=== PATIENT | female | born 1945 | race Caucasian/White ===

== ENCOUNTER 2017-05-19 13:07 | Emergency (ER) | payer MEDICARE, BC ==
[2017-05-19 13:15] VITALS: TEMP 98
--- NOTE | 2017-05-19 13:34 | ED ---
Lower Extremity Injury HPI - General Chief Complaint: Extremity Injury, Lower Stated Complaint: lump on leg Time Seen by Provider: 05/19/17 13:20 Source: patient, RN notes reviewed, old records reviewed Mode of arrival: ambulatory Limitations: no limitations - History of Present Illness Initial Comments: This is 71-year-old female presenting to the emergency Department chief complaint of right lower leg lump that she noticed today while getting out of the shower. She reports that last week she had some swelling over her right foot. Patient reports the swelling and now has subsided. She denies any injury or trauma to the area did cause this lump and swelling. Patient states that she has no numbness or tingling distally to the area. She reports no nausea or vomiting, chest pain or shortness of breath. - Related Data Home Medications Medication Instructions Recorded Confirmed Aspirin EC [Ecotrin Low Dose] 81 mg PO DAILY 05/19/17 05/19/17 Diltiazem HCl [Diltiazem 24Hr ER] 120 mg PO DAILY 05/19/17 05/19/17 Fluticasone/Vilanterol [Breo 1 puff INHALATION RT-DAILY PRN 05/19/17 05/19/17 Ellipta 200-25 Mcg INH] Folic Acid 0.8 mg PO DAILY 05/19/17 05/19/17 Gabapentin [Neurontin] 100 mg PO DAILY 05/19/17 05/19/17 Isosorbide Mononitrate ER [Imdur] 30 mg PO DAILY 05/19/17 05/19/17 L.acidoph,Paracasei, B.lactis 1 cap PO W/SUPPER 05/19/17 05/19/17 [Probiotic] Magnesium Oxide [Mag-Ox] 400 mg PO DAILY 05/19/17 05/19/17 Metoprolol Succinate (ER) [Toprol 25 mg PO DAILY 05/19/17 05/19/17 Xl] Omeprazole 20 mg PO DAILY 05/19/17 05/19/17 Pravastatin Sodium [Pravachol] 40 mg PO DAILY 05/19/17 05/19/17 Venlafaxine HCl ER [Effexor Xr] 75 mg PO DAILY 05/19/17 05/19/17 diphenhydrAMINE [Benadryl] 25 mg PO DAILY PRN 05/19/17 05/19/17 metFORMIN HCL ER [Glucophage Xr] 500 mg PO PC-SUPPER 05/19/17 05/19/17 methylPREDNISolone [Medrol] 4 mg PO DAILY 05/19/17 05/19/17 Allergies Allergy/AdvReac Type Severity Reaction Status Date / Time atorvastatin [From Lipitor] AdvReac Rapid Verified 05/19/17 14:37 Heart Rate/Increased BP Review of Systems ROS Statement: Those systems with pertinent positive or pertinent negative responses have been documented in the HPI. ROS Other: All systems not noted in ROS Statement are negative. Past Medical History Past Medical History: Diabetes Mellitus, Hyperlipidemia, Hypertension History of Any Multi-Drug Resistant Organisms: None Reported Past Surgical History: Appendectomy, Breast Surgery, Cholecystectomy, Hysterectomy, Orthopedic Surgery Past Psychological History: No Psychological Hx Reported Smoking Status: Never smoker Past Alcohol Use History: None Reported Past Drug Use History: None Reported General Exam - General Exam Comments Initial Comments: Well-appearing 71-year-old female. No acute distress. Limitations: no limitations General appearance: alert, in no apparent distress Head exam: Present: atraumatic, normocephalic, normal inspection Eye exam: Present: normal appearance, PERRL, EOMI. Absent: scleral icterus, conjunctival injection, periorbital swelling ENT exam: Present: normal exam, mucous membranes moist Neck exam: Present: normal inspection. Absent: tenderness, meningismus, lymphadenopathy Respiratory exam: Present: normal lung sounds bilaterally. Absent: respiratory distress, wheezes, rales, rhonchi, stridor Cardiovascular Exam: Present: regular rate, normal rhythm, normal heart sounds. Absent: systolic murmur, diastolic murmur, rubs, gallop, clicks GI/Abdominal exam: Present: soft, normal bowel sounds. Absent: distended, tenderness, guarding, rebound, rigid Extremities exam: Present: normal inspection, full ROM, normal capillary refill. Absent: tenderness, pedal edema, joint swelling, calf tenderness Right Knee exam: Present: normal inspection, full ROM Lower Leg exam: Present: tenderness, swelling (Patient has an area of tenderness and swelling over the distal right anterior lower leg. Appears to be similar to hematoma.). Absent: normal inspection Ankle exam: Present: normal inspection, full ROM Foot/Toe exam: Present: normal inspection, full ROM Neurovascular tendon exam: Present: no vascular compromise Gait: observed and normal Back exam: Present: normal inspection, full ROM Neurological exam: Present: alert, oriented X3, CN II-XII intact Psychiatric exam: Present: normal affect, normal mood Skin exam: Present: warm, dry, intact, normal color. Absent: rash Course Vital Signs 05/19/17 13:11 Temperature 98 F Pulse Rate 96 Respiratory 20 Rate Blood Pressure 196/81 O2 Sat by Pulse 96 Oximetry Medical Decision Making - Medical Decision Making 69-year-old [employer] chief complaint of right lower leg swelling and appears to be hematoma. Patient's x-rays reviewed and negative for any acute process. Ultrasound also shows no evidence of DVT. There does appear to be a 1.9 x 2 cm area consistent with a hematoma. There is no vasculature noted. Patient also is noted to have high blood pressure upon arriving to the emergency department, 196/98. She reports she did take her blood pressure medicine, blood pressure was taken and was 167/78. Discussed that this is a that her number, I do want her to follow-up with her primary care provider regards to the elevated blood pressures. Discussed that her lesion on her leg is very hematoma, and will eventually go down. Discussed putting ice over top of it. Patient agrees to treatment plan will comply. Return parameters were discussed. - Radiology Data Radiology results: report reviewed Right leg ultrasound is negative for DVT patient's very concerning the right calf on his height oh: Measuring 2.6 x 0.8 x 0.1 0.9 cm. No vascularity. It appears to be hematoma. X-ray was reviewed.No suspicious soft tissue nominally evident. Postsurgical changes within the right knee. Disposition Clinical Impression: Hypertension, Traumatic hematoma of right lower leg Disposition: HOME SELF-CARE Condition: Good Instructions: Hematoma (ED) Additional Instructions: Advised to put ice over the area of swelling. Monitor for any redness or significant swelling over the leg. Return to the emergency department if any alarming signs or symptoms occur. Follow-up with your primary care provider regards to blood pressure. Referrals: Lindsay Crowley MD [Primary Care Provider] - 1-2 days Time of Disposition: 14:45
--- NOTE | 2017-05-19 14:05 | XR ---
EXAMINATION TYPE: XR tibia fibula RT DATE OF EXAM: 05/19/2017 COMPARISON: NONE HISTORY: Pain lump medial side likely TECHNIQUE: 2 view right tibia and fibula. 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 No acute fractures are evident. Soft tissues appear norm al. No radiopaque foreign bodies evident. Achilles tendon calcaneal heel spur is present. IMPRESSION: 1. No suspicious soft tissue anomaly evident. 2. Postsurgical changes right knee
--- NOTE | 2017-05-19 14:34 | US ---
EXAMINATION TYPE: US venous doppler duplex LE RT DATE OF EXAM: 05/19/2017 1:28 PM COMPARISON: NONE CLINICAL HISTORY: Pain. SIDE PERFORMED: right TECHNIQUE: The lower extremity deep venous system is examined utilizing real time linear array sonog leonel with graded compression, doppler sonography and color-flow sonography. VESSELS IMAGED: External Iliac Vein (EIV) Common Femoral Vein Deep Femoral Vein Greater Saphenous Vein * Femoral Vein Popliteal Vein Small Saphenous Vein * Proximal Calf Veins (* superficial vessels) Right Leg: Negative for DVT At patients area of concern (right calf lump) is a hypoechoic area measuring 2.6 x 0.8 x 1.9cm. There is no vascularity. IMPRESSION: No evidence of deep venous thrombosis. 2. Hypoechoic collection at the lump could be a hematoma. Follow up can be performed as clinically in dicated
[2017-05-19 14:47] VITALS: BP 167/79; PULSE 86; RESP 15
== END 2017-05-19 14:42 | disposition home or self-care (01) ==
LOC: EC 13:07
DX: S80.11XA Contusion of right lower leg, initial encounter (principal); I10 Essential (primary) hypertension; E11.9 Type 2 diabetes mellitus without complications; E78.5 Hyperlipidemia, unspecified; Z79.82 Long term (current) use of aspirin; Z79.84 Long term (current) use of oral hypoglycemic drugs; Z79.899 Other long term (current) drug therapy; Z88.8 Allergy status to other drugs, medicaments and biological substances; X58.XXXA Exposure to other specified factors, initial encounter
CPT/HCPCS: 99284

== ENCOUNTER 2018-08-11 07:29 | Emergency (ER) | payer MEDICARE, BC ==
[2018-08-11 07:40] VITALS: RESP 18
[2018-08-11] MEDS ORDERED: MORPHINE SULFATE 4 MG/ML SYRINGE IV STA (08:09)
[2018-08-11] MEDS ORDERED: SODIUM CHLORIDE 0.9% 1,000 ML IV STA (08:09)
--- NOTE | 2018-08-11 08:33 | ED ---
Weakness HPI - General Chief complaint: Back Pain/Injury Stated complaint: Pain all over Time Seen by Provider: 08/11/18 07:32 Source: patient, RN notes reviewed, old records reviewed Mode of arrival: EMS Limitations: no limitations - History of Present Illness Initial comments: This is a 73-year-old female the ER for evaluation pain, patient complains of pain over entire body. She states that she does not feel well, she states ever since she had a recent fall about 5 days ago which she presented to the emergency department for she is having back pain. She is concerned that maybe her kidneys. She is not eating she's not drinking she is not having bowel movements. No fevers cough or congestion. Patient does have a mild issue with chronic pain and chronic back pain. Patient was unable to get in to see primary care doctor since fall. Denies any fever or chest pain or shortness of breath MD Complaint: generalized weakness, lack of energy, difficulty walking -: days(s) (5) Location: generalized Severity: moderate Severity scale (1-10): 5 Quality: aching Consistency: constant Improves with: none Worsens with: movement Context: trauma/injury Associated Symptoms: denies other symptoms - Related Data Home Medications Medication Instructions Recorded Confirmed Fluticasone/Vilanterol [Breo 1 puff INHALATION RT-DAILY PRN 05/19/17 08/11/18 Ellipta 200-25 Mcg INH] Metoprolol Succinate (ER) [Toprol 25 mg PO DAILY 05/19/17 08/11/18 Xl] Omeprazole 20 mg PO DAILY 05/19/17 08/11/18 Aspirin [Children's Aspirin] 81 mg PO DAILY 08/11/18 08/11/18 Gabapentin [Neurontin] 100 mg PO DAILY 08/11/18 08/11/18 predniSONE 4 mg PO DAILY 08/11/18 08/11/18 Allergies Allergy/AdvReac Type Severity Reaction Status Date / Time atorvastatin [From Lipitor] AdvReac Rapid Verified 08/11/18 07:40 Heart Rate/Increased BP Review of Systems ROS Statement: Those systems with pertinent positive or pertinent negative responses have been documented in the HPI. ROS Other: All systems not noted in ROS Statement are negative. Past Medical History Past Medical History: Diabetes Mellitus, Hyperlipidemia, Hypertension History of Any Multi-Drug Resistant Organisms: None Reported Past Surgical History: Appendectomy, Breast Surgery, Cholecystectomy, Hysterectomy, Orthopedic Surgery Past Psychological History: No Psychological Hx Reported Smoking Status: Former smoker Past Alcohol Use History: None Reported Past Drug Use History: None Reported General Exam Limitations: no limitations General appearance: alert, in no apparent distress Head exam: Present: atraumatic, normocephalic, normal inspection Eye exam: Present: normal appearance, PERRL, EOMI. Absent: scleral icterus, conjunctival injection, periorbital swelling ENT exam: Present: normal exam, mucous membranes moist Neck exam: Present: normal inspection. Absent: tenderness, meningismus, lymphadenopathy Respiratory exam: Present: normal lung sounds bilaterally. Absent: respiratory distress, wheezes, rales, rhonchi, stridor Cardiovascular Exam: Present: regular rate, normal rhythm, normal heart sounds. Absent: systolic murmur, diastolic murmur, rubs, gallop, clicks GI/Abdominal exam: Present: soft, normal bowel sounds. Absent: distended, tenderness, guarding, rebound, rigid Extremities exam: Present: normal inspection, full ROM, normal capillary refill. Absent: tenderness, pedal edema, joint swelling, calf tenderness Back exam: Present: normal inspection Neurological exam: Present: alert, oriented X3, CN II-XII intact Psychiatric exam: Present: normal affect, normal mood Skin exam: Present: warm, dry, intact, normal color. Absent: rash Course Vital Signs 08/11/18 08/11/18 08/11/18 07:35 08:00 08:30 Temperature 98.8 F Pulse Rate 89 85 88 Respiratory 18 Rate Blood Pressure 174/96 174/96 162/81 O2 Sat by Pulse 95 93 L 90 L Oximetry 08/11/18 08/11/18 09:00 09:30 Temperature Pulse Rate 87 89 Respiratory Rate Blood Pressure 159/86 154/75 O2 Sat by Pulse 90 L 99 Oximetry - Reevaluation(s) Reevaluation #1: 08/11/18 09:39 Medical record is reviewed including prior ER visit and findings Reevaluation #2: 08/11/18 10:53 Patient has adequate pain control currently Medical Decision Making - Medical Decision Making 73-year-old female to the ER for evaluation of pain back pain abdominal pain patient really constipated. Patient's CAT scan here in the ER with lab values which were all normal. Patient will give MiraLAX to help with bowel movement and discharged home - Lab Data Result diagrams: 08/11/18 08:48 08/11/18 08:48 Lab Results 08/11/18 08/11/18 08/11/18 Range/Units 08:48 08:48 08:48 WBC 11.3 H (3.8-10.6) k/uL RBC 3.98 (3.80-5.40) m/uL Hgb 12.1 (11.4-16.0) gm/dL Hct 35.8 (34.0-46.0) % MCV 90.0 (80.0-100.0) fL MCH 30.4 (25.0-35.0) pg MCHC 33.8 (31.0-37.0) g/dL RDW 13.4 (11.5-15.5) % Plt Count 223 (150-450) k/uL Neutrophils % 75 % Lymphocytes % 15 % Monocytes % 5 % Eosinophils % 2 % Basophils % 0 % Neutrophils # 8.5 H (1.3-7.7) k/uL Lymphocytes # 1.7 (1.0-4.8) k/uL Monocytes # 0.6 (0-1.0) k/uL Eosinophils # 0.3 (0-0.7) k/uL Basophils # 0.0 (0-0.2) k/uL PT (9.0-12.0) sec INR (<1.2) APTT (22.0-30.0) sec Sodium 140 (137-145) mmol/L Potassium 3.5 (3.5-5.1) mmol/L Chloride 109 H (98-107) mmol/L Carbon Dioxide 25 (22-30) mmol/L Anion Gap 6 mmol/L BUN 18 H (7-17) mg/dL Creatinine 0.74 (0.52-1.04) mg/dL Est GFR (CKD-EPI)AfAm >90 (>60 ml/min/1.73 sqM) Est GFR (CKD-EPI)NonAf 81 (>60 ml/min/1.73 sqM) Glucose 139 H (74-99) mg/dL Plasma Lactic Acid Abhijeet (0.7-2.0) mmol/L Calcium 8.3 L (8.4-10.2) mg/dL Total Bilirubin 0.6 (0.2-1.3) mg/dL AST 32 (14-36) U/L ALT 32 (9-52) U/L Alkaline Phosphatase 72 (38-126) U/L Total Creatine Kinase 25 L (30-135) U/L CK-MB (CK-2) 0.5 (0.0-2.4) ng/mL CK-MB (CK-2) Rel Index 2.0 Troponin I <0.012 (0.000-0.034) ng/mL Total Protein 6.2 L (6.3-8.2) g/dL Albumin 3.1 L (3.5-5.0) g/dL Amylase 58 (30-110) U/L Lipase 155 (23-300) U/L Urine Color Urine Appearance (Clear) Urine pH (5.0-8.0) Ur Specific [place] (1.001-1.035) Urine Protein (Negative) Urine Glucose (UA) (Negative) Urine Ketones (Negative) Urine Blood (Negative) Urine Nitrite (Negative) Urine Bilirubin (Negative) Urine Urobilinogen (<2.0) mg/dL Ur Leukocyte Esterase (Negative) Urine RBC (0-5) /hpf Urine WBC (0-5) /hpf Ur Squamous Epith Cells (0-4) /hpf Ur Transition Epith Cell (0-1) /hpf Urine Bacteria (None) /hpf 08/11/18 08/11/18 08/11/18 Range/Units 08:48 08:48 10:10 WBC (3.8-10.6) k/uL RBC (3.80-5.40) m/uL Hgb (11.4-16.0) gm/dL Hct (34.0-46.0) % MCV (80.0-100.0) fL MCH (25.0-35.0) pg MCHC (31.0-37.0) g/dL RDW (11.5-15.5) % Plt Count (150-450) k/uL Neutrophils % % Lymphocytes % % Monocytes % % Eosinophils % % Basophils % % Neutrophils # (1.3-7.7) k/uL Lymphocytes # (1.0-4.8) k/uL Monocytes # (0-1.0) k/uL Eosinophils # (0-0.7) k/uL Basophils # (0-0.2) k/uL PT 9.9 (9.0-12.0) sec INR 1.0 (<1.2) APTT 23.0 (22.0-30.0) sec Sodium (137-145) mmol/L Potassium (3.5-5.1) mmol/L Chloride (98-107) mmol/L Carbon Dioxide (22-30) mmol/L Anion Gap mmol/L BUN (7-17) mg/dL Creatinine (0.52-1.04) mg/dL Est GFR (CKD-EPI)AfAm (>60 ml/min/1.73 sqM) Est GFR (CKD-EPI)NonAf (>60 ml/min/1.73 sqM) Glucose (74-99) mg/dL Plasma Lactic Acid Abhijeet 1.0 (0.7-2.0) mmol/L Calcium (8.4-10.2) mg/dL Total Bilirubin (0.2-1.3) mg/dL AST (14-36) U/L ALT (9-52) U/L Alkaline Phosphatase (38-126) U/L Total Creatine Kinase (30-135) U/L CK-MB (CK-2) (0.0-2.4) ng/mL CK-MB (CK-2) Rel Index Troponin I (0.000-0.034) ng/mL Total Protein (6.3-8.2) g/dL Albumin (3.5-5.0) g/dL Amylase (30-110) U/L Lipase (23-300) U/L Urine Color Light Yellow Urine Appearance Cloudy H (Clear) Urine pH 6.0 (5.0-8.0) Ur Specific [place] 1.023 (1.001-1.035) Urine Protein Negative (Negative) Urine Glucose (UA) Negative (Negative) Urine Ketones Negative (Negative) Urine Blood Negative (Negative) Urine Nitrite Negative (Negative) Urine Bilirubin Negative (Negative) Urine Urobilinogen <2.0 (<2.0) mg/dL Ur Leukocyte Esterase Moderate H (Negative) Urine RBC 1 (0-5) /hpf Urine WBC 22 H (0-5) /hpf Ur Squamous Epith Cells 11 H (0-4) /hpf Ur Transition Epith Cell <1 (0-1) /hpf Urine Bacteria Rare H (None) /hpf - Radiology Data Radiology results: report reviewed (CT head and pelvis negative for acute disease), image reviewed Disposition Clinical Impression: Mechanical back pain, Strain of lumbar region, Thoracic back pain Disposition: HOME SELF-CARE Condition: Good Instructions: Musculoskeletal Pain (ED) Is patient prescribed a controlled substance at d/c from ED?: No Referrals: Lindsay Crowley MD [Primary Care Provider] - 1-2 days
[2018-08-11 09:17] LABS: ALT 32 U/L (9-52); AST 32 U/L (14-36); Albumin 3.1 g/dL (3.5-5.0); Alkaline Phosphatase 72 U/L (38-126); Amylase 58 U/L (30-110); Anion Gap 6 mmol/L; Basophils % (A) 0 %; Blood Urea Nitrogen 18 mg/dL (7-17); Calcium 8.3 mg/dL (8.4-10.2); Carbon Dioxide 25 mmol/L (22-30); Chloride 109 mmol/L (98-107); Eosinophils # (A) 0.3 k/uL (0-0.7); Eosinophils % (A) 2 %; Glucose 139 mg/dL (74-99); HCT 35.8 % (34.0-46.0); HGB 12.1 gm/dL (11.4-16.0); Lipase 155 U/L (23-300); Lymphocytes # (A) 1.7 k/uL (1.0-4.8); Lymphocytes % (A) 15 %; MCH 30.4 pg (25.0-35.0); MCHC 33.8 g/dL (31.0-37.0); Monocytes # (A) 0.6 k/uL (0-1.0); Monocytes % (A) 5 %; Neutrophils # (A) 8.5 k/uL (1.3-7.7); Neutrophils % (A) 75 %; Platelet Count 223 k/uL (150-450); Potassium 3.5 mmol/L (3.5-5.1); RBC 3.98 m/uL (3.80-5.40); RDW 13.4 % (11.5-15.5); Sodium 140 mmol/L (137-145); Total Bilirubin 0.6 mg/dL (0.2-1.3); Total Protein 6.2 g/dL (6.3-8.2); WBC 11.3 k/uL (3.8-10.6)
[2018-08-11 09:21] LABS: Prothrombin Time 9.9 sec (9.0-12.0)
[2018-08-11 09:38] LABS: Creatine Kinase 25 U/L (30-135)
[2018-08-11 09:51] LABS: Creatine Kinase MB 0.5 ng/mL (0.0-2.4); Troponin I <0.012 ng/mL (0.000-0.034)
--- NOTE | 2018-08-11 10:14 | CT ---
EXAMINATION TYPE: CT abdomen pelvis w con DATE OF EXAM: 08/11/2018 REFERENCE: NONE HISTORY: abdominal pain HISTORY: back pain, constipation CT DLP: 1563.2 mGy Automated exposure control for dose reduction was used. TECHNIQUE: Helical acquisition through the abdomen and pelvis was obtained following the oral ingesti on of without Oral Contrast and following intravenous administration of 100 mL of Isovue 300. The jules a was reformatted in axial, coronal and sagittal projections. FINDINGS: There are tiny, bilateral pleural effusions. There is atelectatic change and groundglass o pacity at the lung bases. There is no pericardial fluid. The heart is enlarged. Within the abdomen, the gallbladder has been removed. The liver is upper limits of normal in size. Th ere is low-attenuation of the liver and is likely fatty infiltrated. There is mild central biliary dilatation. This common bile duct measures 11 mm in diameter. The splee n is unremarkable. Both adrenal glands are normal. There is a 1.9 cm, simple appearing cyst involving the upper pole of the left kidney. Kidneys are oth erwise unremarkable. The pancreas is unremarkable. There is mild atheromatous calcification of the visualized arterial tree. There is no significant ret roperitoneal, iliac or inguinal adenopathy. The bladder is unremarkable. The uterus and ovaries are not visualized. There are scattered diverticula in the sigmoid region without radiographic evidence of diverticulitis . The appendix is not visualized with certainty. Small bowel caliber is normal. There is no free fluid and no free air. There is degenerative disc disease, facet arthropathy and hypertrophic spondylosis within the spine. IMPRESSION: 1. PROBABLE FATTY INFILTRATION OF THE LIVER. 2. TINY, BILATERAL PLEURAL EFFUSIONS. 3. CARDIOMEGALY. 4. SIMPLE APPEARING LEFT RENAL CYST. 5. MINIMAL, UNCOMPLICATED DIVERTICULOSIS OF THE SIGMOID COLON. 6. DEGENERATIVE CHANGES WITHIN THE SPINE.
[2018-08-11 10:28] LABS: Appearance,Urine Cloudy (Clear); Bacteria,Urine Rare /hpf; Bilirubin,Urine Negative (Negative); Blood,Urine Negative (Negative); Color,Urine Light Yellow; Glucose,Urine (UA) Negative (Negative); Ketones,Urine Negative (Negative); Leukocyte Esterase,Urine Moderate (Negative); Nitrite,Urine Negative (Negative); Protein,Urine Negative (Negative); RBC,Urine 1 /hpf (0-5); Specific Gravity,Urine 1.023 (1.001-1.035); Squamous Epithelial Cell,Urine 11 /hpf (0-4); Transitional Epi Cells,Urine <1 /hpf (0-1); Urobilinogen,Urine <2.0 mg/dL (<2.0); WBC,Urine 22 /hpf (0-5)
[2018-08-11 11:23] VITALS: BP 161/87; PULSE 96; TEMP 99
== END 2018-08-11 11:21 | disposition home or self-care (01) ==
LOC: EC 07:29
DX: S39.012A Strain of muscle, fascia and tendon of lower back, initial encounter (principal); M54.6 Pain in thoracic spine; K59.00 Constipation, unspecified; R10.9 Unspecified abdominal pain; R53.1 Weakness; R26.9 Unspecified abnormalities of gait and mobility; G89.29 Other chronic pain; I10 Essential (primary) hypertension; Z87.891 Personal history of nicotine dependence; Z88.8 Allergy status to other drugs, medicaments and biological substances; Z79.52 Long term (current) use of systemic steroids; Z79.82 Long term (current) use of aspirin; Z79.899 Other long term (current) drug therapy; Z90.49 Acquired absence of other specified parts of digestive tract; W19.XXXA Unspecified fall, initial encounter
CPT/HCPCS: 36415; 80053; 82150; 82550; 82553; 83605; 83690; 84484; 85025; 85610; 85730; 81001; 87086; 74177; 99285; 96374; 96361; J2270; Q9967

== ENCOUNTER 2021-11-18 16:47 | Emergency (ER) | payer MEDICARE, BC ==
[2021-11-18] MEDS ORDERED: METOCLOPRAMIDE 5 MG/ML 2 ML VIAL IVP STA (17:10)
[2021-11-18] MEDS ORDERED: diphenhydrAMINE 50 MG/ML 1 ML VIAL IVP STA (17:10)
[2021-11-18] MEDS ORDERED: MORPHINE SULFATE 2 MG/ML SYRINGE IVP STA (17:10)
[2021-11-18] MEDS ORDERED: SODIUM CHLORIDE 0.9% 1,000 ML IV STA (17:13)
--- NOTE | 2021-11-18 17:31 | ED ---
General Adult HPI - General Chief complaint: Nausea/Vomiting/Diarrhea Stated complaint: NAUSEA AND VOMITING Time Seen by Provider: 11/18/21 16:52 Source: patient Mode of arrival: EMS Limitations: no limitations - History of Present Illness Initial comments: This 76-year-old female presents emergency Department with vomiting and abdominal pain that began at 3 AM this morning. Patient states she was woken from her sleep with nausea and has vomited 12-15 times since. Patient denies any hemoptysis or fever. Patient denies any diarrhea. Patient states she feels dehydrated. Patient states she has had pancreatitis in the past and states that is the only other time she has felt this way. Patient states her abdominal pain is diffuse but worse right above her umbilicus. Patient denies any pain radiating to her back or groin. Patient denies taking any medication to help relieve her abdominal pain. Patient states she does have 3 other family members at home with similar symptoms who are also experiencing nausea, vomiting and abdominal discomfort for the last few days. Patient denies any chest pain, shortness of breath, change in bowel or bladder, change in vision, headache, dizziness, lightheadedness, back pain, bowel or bladder retention/incontinence, one-sided weakness. - Related Data Home Medications Medication Instructions Recorded Confirmed Gabapentin [Neurontin] 200 mg PO BID 08/11/18 11/18/21 Aspirin EC [Ecotrin Low Dose] 81 mg PO DAILY 11/18/21 11/18/21 Clopidogrel [Plavix] 75 mg PO DAILY 11/18/21 11/18/21 Clotrimazole/Betamethasone Dip 1 applic TOPICAL DAILY PRN 11/18/21 11/18/21 [Lotrisone Cream] Evolocumab [Repatha Sureclick] 140 mg SQ Q14D 11/18/21 11/18/21 Isosorbide Mononitrate ER [Imdur] 60 mg PO DAILY 11/18/21 11/18/21 Loratadine [Claritin] 10 mg PO DAILY 11/18/21 11/18/21 Losartan [Cozaar] 50 mg PO DAILY 11/18/21 11/18/21 Metoprolol Succinate (ER) [Toprol 50 mg PO DAILY 11/18/21 11/18/21 Xl] Pantoprazole [Protonix] 40 mg PO DAILY 11/18/21 11/18/21 diphenhydrAMINE HCL [Benadryl] 25 mg PO HS 11/18/21 11/18/21 metFORMIN HCL ER [Glucophage XR] 500 mg PO DAILY 11/18/21 11/18/21 predniSONE 2.5 mg PO DAILY 11/18/21 11/18/21 sitaGLIPtin [Januvia] 100 mg PO DAILY 11/18/21 11/18/21 Previous Rx's Medication Instructions Recorded Metoclopramide [Reglan] 10 mg PO TID #15 tab 11/18/21 Allergies Allergy/AdvReac Type Severity Reaction Status Date / Time sulfamethoxazole Allergy Unknown Verified 11/18/21 18:17 [From Bactrim] trimethoprim [From Bactrim] Allergy Unknown Verified 11/18/21 18:17 atorvastatin [From Lipitor] AdvReac Rapid Verified 11/18/21 18:10 Heart Rate/Increased BP duloxetine [From Cymbalta] AdvReac Cough Verified 11/18/21 18:17 ondansetron [From Zofran] AdvReac agitation Verified 11/18/21 18:17 pravastatin AdvReac Rapid Verified 11/18/21 18:17 Heart Rate [id number]-RuA Reductase AdvReac Rapid Verified 11/18/21 18:17 Inhibitor Heart Rate Review of Systems ROS Statement: Those systems with pertinent positive or pertinent negative responses have been documented in the HPI. ROS Other: All systems not noted in ROS Statement are negative. Past Medical History Past Medical History: Diabetes Mellitus, Hyperlipidemia, Hypertension History of Any Multi-Drug Resistant Organisms: None Reported Past Surgical History: Appendectomy, Breast Surgery, Cholecystectomy, Heart Catheterization With Stent, Hysterectomy, Orthopedic Surgery Additional Past Surgical History / Comment(s): 2 stents Past Psychological History: No Psychological Hx Reported Smoking Status: Former smoker Past Alcohol Use History: None Reported Past Drug Use History: None Reported General Exam Limitations: no limitations General appearance: alert, in no apparent distress Head exam: Present: atraumatic, normocephalic Eye exam: Present: normal appearance, PERRL, EOMI Pupils: Present: normal accommodation ENT exam: Present: mucous membranes moist Neck exam: Present: full ROM. Absent: tenderness, meningismus Respiratory exam: Present: normal lung sounds bilaterally, rales, other (Mild crackles in left lower lobe). Absent: respiratory distress, wheezes, rhonchi, stridor Cardiovascular Exam: Present: regular rate, normal rhythm, normal heart sounds. Absent: systolic murmur, diastolic murmur, rubs, gallop, clicks GI/Abdominal exam: Present: soft, normal bowel sounds. Absent: distended, tenderness, guarding, rebound, rigid Extremities exam: Present: full ROM. Absent: tenderness, joint swelling, calf tenderness Back exam: Present: full ROM. Absent: tenderness, CVA tenderness (R), CVA tenderness (L), paraspinal tenderness, vertebral tenderness Neurological exam: Present: alert, oriented X3, CN II-XII intact Psychiatric exam: Present: normal affect, normal mood Skin exam: Present: warm, dry, intact, normal color. Absent: rash Course Vital Signs 11/18/21 11/18/21 16:57 20:00 Temperature 99.1 F 100.2 F H Pulse Rate 91 88 Respiratory 18 20 Rate Blood Pressure 182/93 178/88 O2 Sat by Pulse 95 95 Oximetry EKG Findings - EKG Comments: EKG Findings:: EKG impression: Normal sinus rhythm. Ventricular rate 90 bpm. MO interval 180. Frustration 82. QT/QTc 380/427. No ST elevation or depressions noted. Medical Decision Making - Medical Decision Making This 76-year-old female comes emergency Department with vomiting, abdominal pain and nausea that began at 3 AM. Urine unremarkable. Labs unremarkable. COVID- 19 negative. Chest x-ray impression with bilateral shoulder joint osteoarthritis. No focal airspace opacity, pneumothorax or effusion. No acute fracture or dislocation. Mild pulmonary vascular congestion. Moderate enlargement of the heart size. CT abdomen and pelvis with out any acute abnormalities. Patient is aware of her gastroesophageal hiatal hernia and states it has been there for years. No findings of acute diverticulitis. No intestinal obstruction. Patient is aware for compression fracture of L4. After getting fluids, pain medication and Reglan/Benadryl, patient states she is feeling improvement. Patient denies any abdominal pain at this time. Patient states she is still a little bit nauseous. Ativan 0.5 was given before discharge for nausea. Patient was able to keep down water. Strict return precautions were discussed with patient. Patient instructed to follow-up with her primary care provider on Sunday morning. Patient verbally agreed to plan. Patient sent home in stable condition. Case discussed with my attending, . - Lab Data Result diagrams: 11/18/21 17:13 11/18/21 17:13 Lab Results 11/18/21 11/18/21 11/18/21 Range/Units 17:13 17:13 17:13 WBC 8.1 (3.8-10.6) k/uL RBC 4.78 (3.80-5.40) m/uL Hgb 14.6 (11.4-16.0) gm/dL Hct 43.4 (34.0-46.0) % MCV 90.8 (80.0-100.0) fL MCH 30.5 (25.0-35.0) pg MCHC 33.6 (31.0-37.0) g/dL RDW 14.0 (11.5-15.5) % Plt Count 187 (150-450) k/uL MPV 7.1 Neutrophils % 89 % Lymphocytes % 5 % Monocytes % 4 % Eosinophils % 1 % Basophils % 0 % Neutrophils # 7.2 (1.3-7.7) k/uL Lymphocytes # 0.4 L (1.0-4.8) k/uL Monocytes # 0.3 (0-1.0) k/uL Eosinophils # 0.0 (0-0.7) k/uL Basophils # 0.0 (0-0.2) k/uL PT 10.2 (9.0-12.0) sec INR 0.9 (<1.2) APTT 20.5 L (22.0-30.0) sec Sodium 138 (137-145) mmol/L Potassium 3.9 (3.5-5.1) mmol/L Chloride 105 (98-107) mmol/L Carbon Dioxide 24 (22-30) mmol/L Anion Gap 9 mmol/L BUN 15 (7-17) mg/dL Creatinine 0.72 (0.52-1.04) mg/dL Est GFR (CKD-EPI)AfAm >90 (>60 ml/min/1.73 sqM) Est GFR (CKD-EPI)NonAf 82 (>60 ml/min/1.73 sqM) Glucose 172 H (74-99) mg/dL Plasma Lactic Acid Abhijeet (0.7-2.0) mmol/L Calcium 8.6 (8.4-10.2) mg/dL Total Bilirubin 0.9 (0.2-1.3) mg/dL AST 33 (14-36) U/L ALT 21 (4-34) U/L Alkaline Phosphatase 85 (38-126) U/L Troponin I (0.000-0.034) ng/mL Total Protein 7.0 (6.3-8.2) g/dL Albumin 3.9 (3.5-5.0) g/dL Lipase 90 (23-300) U/L Urine Color Urine Appearance (Clear) Urine pH (5.0-8.0) Ur Specific Donnelly (1.001-1.035) Urine Protein (Negative) Urine Glucose (UA) (Negative) Urine Ketones (Negative) Urine Blood (Negative) Urine Nitrite (Negative) Urine Bilirubin (Negative) Urine Urobilinogen (<2.0) mg/dL Ur Leukocyte Esterase (Negative) Coronavirus (PCR) (Not Detectd) 11/18/21 11/18/21 11/18/21 Range/Units 17:13 17:13 20:37 WBC (3.8-10.6) k/uL RBC (3.80-5.40) m/uL Hgb (11.4-16.0) gm/dL Hct (34.0-46.0) % MCV (80.0-100.0) fL MCH (25.0-35.0) pg MCHC (31.0-37.0) g/dL RDW (11.5-15.5) % Plt Count (150-450) k/uL MPV Neutrophils % % Lymphocytes % % Monocytes % % Eosinophils % % Basophils % % Neutrophils # (1.3-7.7) k/uL Lymphocytes # (1.0-4.8) k/uL Monocytes # (0-1.0) k/uL Eosinophils # (0-0.7) k/uL Basophils # (0-0.2) k/uL PT (9.0-12.0) sec INR (<1.2) APTT (22.0-30.0) sec Sodium (137-145) mmol/L Potassium (3.5-5.1) mmol/L Chloride (98-107) mmol/L Carbon Dioxide (22-30) mmol/L Anion Gap mmol/L BUN (7-17) mg/dL Creatinine (0.52-1.04) mg/dL Est GFR (CKD-EPI)AfAm (>60 ml/min/1.73 sqM) Est GFR (CKD-EPI)NonAf (>60 ml/min/1.73 sqM) Glucose (74-99) mg/dL Plasma Lactic Acid Abhijeet 1.1 (0.7-2.0) mmol/L Calcium (8.4-10.2) mg/dL Total Bilirubin (0.2-1.3) mg/dL AST (14-36) U/L ALT (4-34) U/L Alkaline Phosphatase (38-126) U/L Troponin I <0.012 (0.000-0.034) ng/mL Total Protein (6.3-8.2) g/dL Albumin (3.5-5.0) g/dL Lipase (23-300) U/L Urine Color Light Yellow Urine Appearance Clear (Clear) Urine pH 6.0 (5.0-8.0) Ur Specific Donnelly >1.050 H (1.001-1.035) Urine Protein Negative (Negative) Urine Glucose (UA) Negative (Negative) Urine Ketones Negative (Negative) Urine Blood Negative (Negative) Urine Nitrite Negative (Negative) Urine Bilirubin Negative (Negative) Urine Urobilinogen <2.0 (<2.0) mg/dL Ur Leukocyte Esterase Negative (Negative) Coronavirus (PCR) (Not Detectd) 11/18/21 Range/Units 20:37 WBC (3.8-10.6) k/uL RBC (3.80-5.40) m/uL Hgb (11.4-16.0) gm/dL Hct (34.0-46.0) % MCV (80.0-100.0) fL MCH (25.0-35.0) pg MCHC (31.0-37.0) g/dL RDW (11.5-15.5) % Plt Count (150-450) k/uL MPV Neutrophils % % Lymphocytes % % Monocytes % % Eosinophils % % Basophils % % Neutrophils # (1.3-7.7) k/uL Lymphocytes # (1.0-4.8) k/uL Monocytes # (0-1.0) k/uL Eosinophils # (0-0.7) k/uL Basophils # (0-0.2) k/uL PT (9.0-12.0) sec INR (<1.2) APTT (22.0-30.0) sec Sodium (137-145) mmol/L Potassium (3.5-5.1) mmol/L Chloride (98-107) mmol/L Carbon Dioxide (22-30) mmol/L Anion Gap mmol/L BUN (7-17) mg/dL Creatinine (0.52-1.04) mg/dL Est GFR (CKD-EPI)AfAm (>60 ml/min/1.73 sqM) Est GFR (CKD-EPI)NonAf (>60 ml/min/1.73 sqM) Glucose (74-99) mg/dL Plasma Lactic Acid Abhijeet (0.7-2.0) mmol/L Calcium (8.4-10.2) mg/dL Total Bilirubin (0.2-1.3) mg/dL AST (14-36) U/L ALT (4-34) U/L Alkaline Phosphatase (38-126) U/L Troponin I (0.000-0.034) ng/mL Total Protein (6.3-8.2) g/dL Albumin (3.5-5.0) g/dL Lipase (23-300) U/L Urine Color Urine Appearance (Clear) Urine pH (5.0-8.0) Ur Specific Donnelly (1.001-1.035) Urine Protein (Negative) Urine Glucose (UA) (Negative) Urine Ketones (Negative) Urine Blood (Negative) Urine Nitrite (Negative) Urine Bilirubin (Negative) Urine Urobilinogen (<2.0) mg/dL Ur Leukocyte Esterase (Negative) Coronavirus (PCR) Not Detected (Not Detectd) Disposition Clinical Impression: Abdominal pain, Nausea and vomiting Disposition: HOME SELF-CARE Instructions (If sedation given, give patient instructions): Acute Nausea and Vomiting (ED), Abdominal Pain (ED) Additional Instructions: Please follow-up with her primary care provider on Sunday morning. Return to the emergency department with any new, worsening, or concerning symptoms. Take Reglan as directed. Stay well hydrated, drinking plenty of water. Take Tylenol for symptomatic relief of pain or fever as directed. Prescriptions: Metoclopramide [Reglan] 10 mg PO TID #15 tab Is patient prescribed a controlled substance at d/c from ED?: No Referrals: Lindsay Crowley MD [Primary Care Provider] - 1-2 days Time of Disposition: 21:36
[2021-11-18 17:36] LABS: Basophils % (A) 0 %; Eosinophils % (A) 1 %; HCT 43.4 % (34.0-46.0); HGB 14.6 gm/dL (11.4-16.0); Lymphocytes # (A) 0.4 k/uL (1.0-4.8); Lymphocytes % (A) 5 %; MCH 30.5 pg (25.0-35.0); MCHC 33.6 g/dL (31.0-37.0); MCV 90.8 fL (80.0-100.0); Mean Platelet Volume 7.1; Monocytes # (A) 0.3 k/uL (0-1.0); Monocytes % (A) 4 %; Neutrophils # (A) 7.2 k/uL (1.3-7.7); Neutrophils % (A) 89 %; Platelet Count 187 k/uL (150-450); RBC 4.78 m/uL (3.80-5.40); WBC 8.1 k/uL (3.8-10.6)
[2021-11-18 17:47] LABS: ALT 21 U/L (4-34); AST 33 U/L (14-36); African American GFR (CKD) >90 (>60 ml/min/1.73 sqM); Albumin 3.9 g/dL (3.5-5.0); Alkaline Phosphatase 85 U/L (38-126); Anion Gap 9 mmol/L; Blood Urea Nitrogen 15 mg/dL (7-17); Calcium 8.6 mg/dL (8.4-10.2); Carbon Dioxide 24 mmol/L (22-30); Chloride 105 mmol/L (98-107); Glucose 172 mg/dL (74-99); Lipase 90 U/L (23-300); Non-African American GFR(CKD) 82 (>60 ml/min/1.73 sqM); Potassium 3.9 mmol/L (3.5-5.1); Sodium 138 mmol/L (137-145); Total Bilirubin 0.9 mg/dL (0.2-1.3)
[2021-11-18 17:58] LABS: INR 0.9 (<1.2); Prothrombin Time 10.2 sec (9.0-12.0)
[2021-11-18 18:01] LABS: Partial Thromboplastin Time 20.5 sec (22.0-30.0)
--- NOTE | 2021-11-18 19:28 | XR ---
EXAMINATION TYPE: XR chest 2V DATE OF EXAM: 11/18/2021 COMPARISON: None HISTORY: 76 years Female. STUDY INDICATION GIVEN: vomiting . TECHNIQUE: Frontal and lateral chest radiographs. IMPRESSION: Moderate enlargement of the heart size. Mild pulmonary vascular congestion, correlate clinically for CHF.Lung base atelectatic changes noted, greater on the right. No focal airspace opacity, pneumothorax or effusion. No acute fracture or dislocation. Bilateral shoulder joint osteoarthrosis.
--- NOTE | 2021-11-18 19:54 | CT ---
EXAMINATION TYPE: CT abdomen pelvis w con DATE OF EXAM: 11/18/2021 HISTORY: Abdominal pain, N/V CT DLP: 2171.9mGycm Automated Exposure Control for Dose Reduction was Utilized. CONTRAST: CT scan of the abdomen and pelvis is performed with IV Contrast, patient injected with 100 mL of Isov ue 300. COMPARISON: 08/11/2018 FINDINGS: LUNG BASES: Trace left pleural effusion no significant change. Mild bibasilar lung atelectasis. INCLUDED CARDIAC STRUCTURES: Partial visualization limited in characterization intracardiac calcifica tions. LIVER: Stable low attenuating lesion the right hepatic lobe measuring 2.0 x 1.7 cm. Normal hepatic co ntour. GALLBLADDER : Surgically removed. BILIARY TREE: Mild to moderate dilatation of the intra and extrahepatic biliary tree similar to prior study. PANCREAS: Age-related atrophic changes, slightly progressed. Main pancreatic duct nondilated. SPLEEN: Unremarkable spleen. Small splenule seen again. ADRENALS: No significant abnormality is seen. KIDNEYS AND URETERS: Mild diffuse bilateral renal atrophy. Mild bilateral perinephric stranding, may be seen with renal failure. Left kidney upper pole low attenuating lesion measuring 2.0 cm no signifi cant change likely cyst. No renal collecting system dilatation or calculi seen. Nondilated ureters. URINARY BLADDER: No significant abnormality is appreciated. ESOPHAGUS: Small gastroesophageal hiatal hernia. Slightly increased in size in the interval. STOMACH: No significant abnormality is seen. SMALL BOWEL: Mildly distended small bowel bowel loops with fluid. Terminal ileum nonthickened. LARGE BOWEL: Descending and sigmoid colon diverticulosis, no findings of acute diverticulitis. No int estinal obstruction. Air seen in the rectum. APPENDIX: No findings of acute appendicitis, appendix not definitely seen. HERNIAS: No bowel herniation seen. UTERUS/ADNEXA: Nonvisualized uterus. Unremarkable adnexa. PERITONEUM/MESENTRY: No pneumoperitoneum or ascites. LYMPH NODES: No enlarged retroperitoneal or pelvic lymph nodes are appreciated. MAJOR VASCULAR STRUCTURES: Mildly tortuous intra-abdominal aorta which is nonaneurysmal. Calcific and soft plaque seen in the intrathoracic and abdominal aorta. OSSEOUS STRUCTURES: Generalized osteopenia. Compression fracture deformity of L4 appears increased in the interval. Bilevel moderate severe narrowing of the intervertebral spaces and facet joint arthrop athy changes and neural foraminal narrowing noted. Significant change since prior. Ventral and dorsal bony spurs again seen. IMPRESSION: 1 trace left pleural effusion, no significant change since prior. 2. Stable low attenuating lesion the right hepatic lobe measuring 2.0 cm, likely cyst. 3. Surgically removed gallbladder with extrahepatic and mild intrahepatic biliary ductal dilatation, no significant change. Correlation with serum bilirubin levels may be beneficial. 4. Mild atrophy of the kidneys with mild perirenal stranding may be seen with renal failure. 5. Slightly enlarged small gastroesophageal hiatal hernia. 6. Descending and sigmoid colon diverticulosis, no findings of acute diverticulitis. No intestinal ob struction. 7. Compression fracture deformity of L4, slightly worse.
[2021-11-18 20:59] LABS: Appearance,Urine Clear (Clear); Bilirubin,Urine Negative (Negative); Blood,Urine Negative (Negative); Color,Urine Light Yellow; Glucose,Urine (UA) Negative (Negative); Ketones,Urine Negative (Negative); Leukocyte Esterase,Urine Negative (Negative); Nitrite,Urine Negative (Negative); Protein,Urine Negative (Negative); Specific Gravity,Urine >1.050 (1.001-1.035); Urobilinogen,Urine <2.0 mg/dL (<2.0)
[2021-11-18] MEDS ORDERED: LORazepam 2 MG/ML INJ IV STA (21:50)
[2021-11-18 22:54] VITALS: BP 157/67; PULSE 90; RESP 18; TEMP 99.4
== END 2021-11-18 22:15 | disposition home or self-care (01) ==
LOC: EC 16:47
DX: R10.84 Generalized abdominal pain (principal); R11.2 Nausea with vomiting, unspecified; Z20.822 Contact with and (suspected) exposure to COVID-19; E11.9 Type 2 diabetes mellitus without complications; I10 Essential (primary) hypertension; E78.5 Hyperlipidemia, unspecified; Z87.891 Personal history of nicotine dependence; Z79.84 Long term (current) use of oral hypoglycemic drugs; Z79.82 Long term (current) use of aspirin; Z79.899 Other long term (current) drug therapy
CPT/HCPCS: 36415; 93005; 80053; 83605; 83690; 84484; 85025; 85610; 85730; 81003; 87635; 71046; 74177; 99285; 96374; 96375 ×3; 96361; J2060; J1200; J2765; J2270; Q9967

== ENCOUNTER 2022-05-01 18:47 | Emergency (ER) | payer MEDICARE, BC ==
[2022-05-01 18:51] VITALS: TEMP 98.6
[2022-05-01 18:55] VITALS: RESP 20
[2022-05-01] MEDS ORDERED: IPRATROPIUM-ALBUTEROL 3 ML NEB INHALATION STA (19:28)
--- NOTE | 2022-05-01 19:28 | ED ---
General Adult HPI - General Chief complaint: Shortness of Breath Stated complaint: DARIO Time Seen by Provider: 05/01/22 18:50 Source: patient, EMS, RN notes reviewed, old records reviewed Mode of arrival: EMS Limitations: no limitations - History of Present Illness Initial comments: This is a 76-year-old female who presents emergency Department complaining of difficulty breathing since last night. Patient states he got so bad today she felt like she needed called EMS. Patient states she does not believe she has any underlying breathing problems. Patient states she has no heart condition. Patient denies any fevers but she states she has been coughing quite a bit lately. Patient denies abdominal pain patient denies any back pain. Patient denies any lightheadedness or dizziness. - Related Data Home Medications Medication Instructions Recorded Confirmed Gabapentin [Neurontin] 200 mg PO BID 08/11/18 11/18/21 Aspirin EC [Ecotrin Low Dose] 81 mg PO DAILY 11/18/21 11/18/21 Clopidogrel [Plavix] 75 mg PO DAILY 11/18/21 11/18/21 Clotrimazole/Betamethasone Dip 1 applic TOPICAL DAILY PRN 11/18/21 11/18/21 [Lotrisone Cream] Evolocumab [Repatha Sureclick] 140 mg SQ Q14D 11/18/21 11/18/21 Isosorbide Mononitrate ER [Imdur] 60 mg PO DAILY 11/18/21 11/18/21 Loratadine [Claritin] 10 mg PO DAILY 11/18/21 11/18/21 Losartan [Cozaar] 50 mg PO DAILY 11/18/21 11/18/21 Metoprolol Succinate (ER) [Toprol 50 mg PO DAILY 11/18/21 11/18/21 Xl] Pantoprazole [Protonix] 40 mg PO DAILY 11/18/21 11/18/21 diphenhydrAMINE HCL [Benadryl] 25 mg PO HS 11/18/21 11/18/21 metFORMIN HCL ER [Glucophage XR] 500 mg PO DAILY 11/18/21 11/18/21 predniSONE 2.5 mg PO DAILY 11/18/21 11/18/21 sitaGLIPtin [Januvia] 100 mg PO DAILY 11/18/21 11/18/21 Previous Rx's Medication Instructions Recorded Metoclopramide [Reglan] 10 mg PO TID #15 tab 11/18/21 Albuterol Inhaler [Ventolin Hfa 2 puff INHALATION RT-QID #18 gm 05/01/22 Inhaler] Azithromycin [Zithromax Tri-Micah (3 500 mg PO DAILY 3 Days #3 tab 05/01/22 tabs)] Allergies Allergy/AdvReac Type Severity Reaction Status Date / Time sulfamethoxazole Allergy Unknown Verified 11/18/21 18:17 [From Bactrim] trimethoprim [From Bactrim] Allergy Unknown Verified 11/18/21 18:17 atorvastatin [From Lipitor] AdvReac Rapid Verified 11/18/21 18:10 Heart Rate/Increased BP duloxetine [From Cymbalta] AdvReac Cough Verified 11/18/21 18:17 ondansetron [From Zofran] AdvReac agitation Verified 11/18/21 18:17 pravastatin AdvReac Rapid Verified 11/18/21 18:17 Heart Rate Pabqbbj-ANE-VaQ Reductase AdvReac Rapid Verified 11/18/21 18:17 Inhibitor Heart Rate Review of Systems ROS Statement: Those systems with pertinent positive or pertinent negative responses have been documented in the HPI. ROS Other: All systems not noted in ROS Statement are negative. Past Medical History Past Medical History: Heart Failure, Diabetes Mellitus, Hyperlipidemia, Hypertension History of Any Multi-Drug Resistant Organisms: None Reported Past Surgical History: Appendectomy, Breast Surgery, Cholecystectomy, Hysterectomy, Orthopedic Surgery Additional Past Surgical History / Comment(s): cardiac stents Past Psychological History: No Psychological Hx Reported Smoking Status: Former smoker Past Alcohol Use History: None Reported Past Drug Use History: None Reported General Exam - General Exam Comments Initial Comments: GENERAL: Patient is well-developed and well-nourished. Patient is nontoxic and well- hydrated and is in mild distress. ENT: Neck is soft and supple. No significant lymphadenopathy is noted. Oropharynx is clear. Moist mucous membranes. Neck has full range of motion without e liciting any pain. EYES: The sclera were anicteric and conjunctiva were pink and moist. Extraocular movements were intact and pupils were equal round and reactive to light. Eyelids were unremarkable. PULMONARY: Patient has some expiratory wheezing. CARDIOVASCULAR: There is a regular rate and rhythm without any murmurs gallops or rubs. ABDOMEN: Soft and nontender with normal bowel sounds. SKIN: Skin is clear with no lesions or rashes and otherwise unremarkable. NEUROLOGIC: Patient is alert and oriented x3. Cranial nerves II through XII are grossly intact. Motor and sensory are also intact. Normal speech, volume and content. Symmetrical smile. MUSCULOSKELETAL: Normal extremities with adequate strength and full range of motion. No lower extremity swelling or edema. No calf tenderness. LYMPHATICS: No significant lymphadenopathy is noted PSYCHIATRIC: Normal psychiatric evaluation. Limitations: no limitations Course Vital Signs 05/01/22 05/01/22 05/01/22 18:48 18:51 19:48 Temperature 98.6 F Pulse Rate 77 72 Respiratory 16 20 20 Rate Blood Pressure 183/81 165/84 O2 Sat by Pulse 96 95 Oximetry Medical Decision Making - Medical Decision Making EKG shows sinus rhythm at 74 bpm VA interval 179 QRS is 82 QT interval 42 QTC is 4:30. Patient's EKG shows no ST segment elevation or depression. Chest x-ray shows a infiltrate in the left lower lobe. Patient received 2 g Rocephin 1 Zithromax in the emergency department. Patient also received a breathing treatment in the emergency department. I went back and reexamined the patient she was feeling better and was breathing better and no longer felt short of breath. - Lab Data Result diagrams: 05/01/22 19:30 05/01/22 19:30 Lab Results 05/01/22 05/01/22 05/01/22 Range/Units 19:30 19:30 19:30 WBC 12.1 H (3.8-10.6) k/uL RBC 4.38 (3.80-5.40) m/uL Hgb 13.1 (11.4-16.0) gm/dL Hct 39.1 (34.0-46.0) % MCV 89.2 (80.0-100.0) fL MCH 29.8 (25.0-35.0) pg MCHC 33.4 (31.0-37.0) g/dL RDW 13.2 (11.5-15.5) % Plt Count 216 (150-450) k/uL MPV 7.1 Neutrophils % 75 % Lymphocytes % 17 % Monocytes % 5 % Eosinophils % 2 % Basophils % 1 % Neutrophils # 9.1 H (1.3-7.7) k/uL Lymphocytes # 2.0 (1.0-4.8) k/uL Monocytes # 0.6 (0-1.0) k/uL Eosinophils # 0.3 (0-0.7) k/uL Basophils # 0.1 (0-0.2) k/uL PT 9.9 (9.0-12.0) sec INR 0.9 (<1.2) APTT 22.4 (22.0-30.0) sec D-Dimer 0.52 (<0.60) mg/L FEU Sodium 137 (137-145) mmol/L Potassium 4.4 (3.5-5.1) mmol/L Chloride 105 (98-107) mmol/L Carbon Dioxide 24 (22-30) mmol/L Anion Gap 8 mmol/L BUN 24 H (7-17) mg/dL Creatinine 1.86 H (0.52-1.04) mg/dL Est GFR (CKD-EPI)AfAm 30 (>60 ml/min/1.73 sqM) Est GFR (CKD-EPI)NonAf 26 (>60 ml/min/1.73 sqM) Glucose 142 H (74-99) mg/dL Calcium 9.3 (8.4-10.2) mg/dL Magnesium 1.4 L (1.6-2.3) mg/dL Total Bilirubin 0.4 (0.2-1.3) mg/dL AST 34 (14-36) U/L ALT 24 (4-34) U/L Alkaline Phosphatase 87 (38-126) U/L Troponin I (0.000-0.034) ng/mL NT-Pro-B Natriuret Pep pg/mL Total Protein 6.6 (6.3-8.2) g/dL Albumin 3.7 (3.5-5.0) g/dL Coronavirus (PCR) (Not Detectd) 05/01/22 05/01/22 05/01/22 Range/Units 19:30 19:30 19:48 WBC (3.8-10.6) k/uL RBC (3.80-5.40) m/uL Hgb (11.4-16.0) gm/dL Hct (34.0-46.0) % MCV (80.0-100.0) fL MCH (25.0-35.0) pg MCHC (31.0-37.0) g/dL RDW (11.5-15.5) % Plt Count (150-450) k/uL MPV Neutrophils % % Lymphocytes % % Monocytes % % Eosinophils % % Basophils % % Neutrophils # (1.3-7.7) k/uL Lymphocytes # (1.0-4.8) k/uL Monocytes # (0-1.0) k/uL Eosinophils # (0-0.7) k/uL Basophils # (0-0.2) k/uL PT (9.0-12.0) sec INR (<1.2) APTT (22.0-30.0) sec D-Dimer (<0.60) mg/L FEU Sodium (137-145) mmol/L Potassium (3.5-5.1) mmol/L Chloride (98-107) mmol/L Carbon Dioxide (22-30) mmol/L Anion Gap mmol/L BUN (7-17) mg/dL Creatinine (0.52-1.04) mg/dL Est GFR (CKD-EPI)AfAm (>60 ml/min/1.73 sqM) Est GFR (CKD-EPI)NonAf (>60 ml/min/1.73 sqM) Glucose (74-99) mg/dL Calcium (8.4-10.2) mg/dL Magnesium (1.6-2.3) mg/dL Total Bilirubin (0.2-1.3) mg/dL AST (14-36) U/L ALT (4-34) U/L Alkaline Phosphatase (38-126) U/L Troponin I <0.012 (0.000-0.034) ng/mL NT-Pro-B Natriuret Pep 499 pg/mL Total Protein (6.3-8.2) g/dL Albumin (3.5-5.0) g/dL Coronavirus (PCR) Not Detected (Not Detectd) Disposition Clinical Impression: Pneumonia Disposition: HOME SELF-CARE Condition: Good Instructions (If sedation given, give patient instructions): Pneumonia (ED) Prescriptions: Albuterol Inhaler [Ventolin Hfa Inhaler] 2 puff INHALATION RT-QID #18 gm Azithromycin [Zithromax Tri-Micah (3 tabs)] 500 mg PO DAILY 3 Days #3 tab Is patient prescribed a controlled substance at d/c from ED?: No Referrals: Lindsay Crowley MD [Primary Care Provider] - 1-2 days Time of Disposition: 21:08
[2022-05-01 19:40] LABS: Basophils # (A) 0.1 k/uL (0-0.2); Basophils % (A) 1 %; Eosinophils # (A) 0.3 k/uL (0-0.7); Eosinophils % (A) 2 %; HCT 39.1 % (34.0-46.0); HGB 13.1 gm/dL (11.4-16.0); Lymphocytes % (A) 17 %; MCH 29.8 pg (25.0-35.0); MCHC 33.4 g/dL (31.0-37.0); MCV 89.2 fL (80.0-100.0); Mean Platelet Volume 7.1; Monocytes # (A) 0.6 k/uL (0-1.0); Monocytes % (A) 5 %; Neutrophils # (A) 9.1 k/uL (1.3-7.7); Neutrophils % (A) 75 %; Platelet Count 216 k/uL (150-450); RBC 4.38 m/uL (3.80-5.40); RDW 13.2 % (11.5-15.5); WBC 12.1 k/uL (3.8-10.6)
[2022-05-01 19:53] LABS: Albumin 3.7 g/dL (3.5-5.0); Calcium 9.3 mg/dL (8.4-10.2); INR 0.9 (<1.2); Magnesium 1.4 mg/dL (1.6-2.3); Partial Thromboplastin Time 22.4 sec (22.0-30.0); Potassium 4.4 mmol/L (3.5-5.1); Prothrombin Time 9.9 sec (9.0-12.0); Total Bilirubin 0.4 mg/dL (0.2-1.3); Total Protein 6.6 g/dL (6.3-8.2)
[2022-05-01] MEDS ORDERED: MAGNESIUM SULFATE-D5W PMX 1 GM in DEXTROSE/WATER 1 100ML.BAG IVPB ONE (20:20)
--- NOTE | 2022-05-01 20:56 | XR ---
EXAMINATION TYPE: XR chest 2V DATE OF EXAM: 05/01/2022 8:42 PM COMPARISON: 11/18/2021 TECHNIQUE: XR chest 2V Frontal and lateral views of the chest. CLINICAL INDICATION:Female, 76 years old with history of difficulty breathing; FINDINGS: Lungs/Pleura: Basilar opacities seen on lateral view. There is no evidence of pleural effusion, focal consolidation, or pneumothorax. Pulmonary vascularity: Unremarkable. Heart/mediastinum: Cardiomediastinal silhouette is unremarkable. Musculoskeletal: Degenerative changes of the shoulder joints. No acute fracture. IMPRESSION: Basilar airspace opacities seen on lateral view only correlate for pneumonia.
[2022-05-01] MEDS ORDERED: cefTRIAXone IN SWFI 1,000 MG/10 ML SYRINGE IVP STA (21:04)
[2022-05-01] MEDS ORDERED: AZITHROMYCIN 500 MG TAB PO STA (21:05)
[2022-05-01 22:22] VITALS: BP 146/73; PULSE 80
== END 2022-05-01 22:25 | disposition home or self-care (01) ==
LOC: EC 18:47
DX: J18.9 Pneumonia, unspecified organism (principal); Z20.822 Contact with and (suspected) exposure to COVID-19; I11.0 Hypertensive heart disease with heart failure; I50.9 Heart failure, unspecified; E11.9 Type 2 diabetes mellitus without complications; E78.5 Hyperlipidemia, unspecified; Z87.891 Personal history of nicotine dependence; Z88.8 Allergy status to other drugs, medicaments and biological substances; Z88.2 Allergy status to sulfonamides; Z79.4 Long term (current) use of insulin; Z79.899 Other long term (current) drug therapy; Z79.84 Long term (current) use of oral hypoglycemic drugs; Z79.02 Long term (current) use of antithrombotics/antiplatelets; Z79.82 Long term (current) use of aspirin
CPT/HCPCS: 36415; 93005; 85379; 83880; 80053; 83735; 84484; 85025; 85610; 85730; 87635; 71046; 99285; 96365; 96375; J0696; J3475

== ENCOUNTER 2023-09-08 00:33 | Inpatient (IN) | payer MEDICARE, BC ==
[2023-09-08] MEDS ORDERED: ACETAMINOPHEN TAB 500 MG TAB PO STA (02:17)
--- NOTE | 2023-09-08 03:55 | ED ---
Back Pain HPI - General Chief Complaint: Back Pain/Injury Stated Complaint: Flu symptoms Time Seen by Provider: 09/08/23 01:09 Source: EMS - History of Present Illness Initial Comments: 78-year-old female with past medical history of congestive heart failure, diabetes, hypertension, obstructive sleep apnea with non-compliance with CPAP use who presents to the emergency department with generalized weakness and shortness of breath. She reports to having developed "flulike symptoms" today. Family members were concerned about her increased worker breathing. She does have history of congestive heart failure and takes Lasix. They deny any recent missed doses. The patient additionally uses an inhaler every morning but denies history of COPD or asthma. No home O2 use. They state that the patient has been so weak and short of breath that she has been unable to get out of bed and ambulate. She denies chest pain. Admits to myalgias with fever. No productive cough. Denies abdominal pain. No nausea, vomiting or diarrhea. No other alleviating, precipitating or modifying factors - Related Data Home Medications Medication Instructions Recorded Confirmed Gabapentin [Neurontin] 200 mg PO BID 08/11/18 11/18/21 Aspirin EC [Ecotrin Low Dose] 81 mg PO DAILY 11/18/21 11/18/21 Clopidogrel [Plavix] 75 mg PO DAILY 11/18/21 11/18/21 Evolocumab [Repatha Sureclick] 140 mg SQ Q14D 11/18/21 11/18/21 Isosorbide Mononitrate ER [Imdur] 60 mg PO DAILY 11/18/21 11/18/21 Loratadine [Claritin] 10 mg PO DAILY 11/18/21 11/18/21 Losartan [Cozaar] 50 mg PO DAILY 11/18/21 11/18/21 Metoprolol Succinate (ER) [Toprol 50 mg PO DAILY 11/18/21 11/18/21 Xl] Pantoprazole [Protonix] 40 mg PO DAILY 11/18/21 11/18/21 diphenhydrAMINE HCL [Benadryl] 25 mg PO HS 11/18/21 11/18/21 metFORMIN HCL ER [Glucophage XR] 500 mg PO DAILY 11/18/21 11/18/21 predniSONE 2.5 mg PO DAILY 11/18/21 11/18/21 sitaGLIPtin [Januvia] 100 mg PO DAILY 11/18/21 11/18/21 Colestipol [Colestid] 5 gm PO DAILY 09/08/23 09/08/23 Metoclopramide [Reglan] 10 mg PO TID PRN 09/08/23 Previous Rx's Medication Instructions Recorded Albuterol Inhaler [Ventolin Hfa 2 puff INHALATION RT-QID #18 gm 05/01/22 Inhaler] Allergies Allergy/AdvReac Type Severity Reaction Status Date / Time sulfamethoxazole Allergy Unknown Verified 11/18/21 18:17 [From Bactrim] trimethoprim [From Bactrim] Allergy Unknown Verified 11/18/21 18:17 atorvastatin [From Lipitor] AdvReac Rapid Verified 11/18/21 18:10 Heart Rate/Increased BP duloxetine [From Cymbalta] AdvReac Cough Verified 11/18/21 18:17 ondansetron [From Zofran] AdvReac agitation Verified 11/18/21 18:17 pravastatin AdvReac Rapid Verified 11/18/21 18:17 Heart Rate Dtgrvyw-MBN-BoL Reductase AdvReac Rapid Verified 11/18/21 18:17 Inhibitor Heart Rate Review of Systems ROS Statement: Those systems with pertinent positive or pertinent negative responses have been documented in the HPI. ROS Other: All systems not noted in ROS Statement are negative. Past Medical History Past Medical History: Heart Failure, Diabetes Mellitus, Hyperlipidemia, Hypertension History of Any Multi-Drug Resistant Organisms: None Reported Past Surgical History: Appendectomy, Breast Surgery, Cholecystectomy, Hysterectomy, Orthopedic Surgery Additional Past Surgical History / Comment(s): cardiac stents Past Psychological History: No Psychological Hx Reported Smoking Status: Former smoker Past Alcohol Use History: None Reported Past Drug Use History: None Reported General Exam General appearance: alert, in no apparent distress Head exam: Present: atraumatic, normocephalic, normal inspection Eye exam: Present: normal appearance, PERRL, EOMI. Absent: scleral icterus, conjunctival injection, periorbital swelling ENT exam: Present: normal exam, mucous membranes moist Neck exam: Present: normal inspection. Absent: tenderness, meningismus, lymphadenopathy Respiratory exam: Present: wheezes. Absent: respiratory distress, rales, rhonchi, stridor Cardiovascular Exam: Present: regular rate, normal rhythm, normal heart sounds. Absent: systolic murmur, diastolic murmur, rubs, gallop, clicks GI/Abdominal exam: Present: soft, normal bowel sounds. Absent: distended, tenderness, guarding, rebound, rigid Extremities exam: Present: normal inspection, full ROM, normal capillary refill. Absent: tenderness, pedal edema, joint swelling, calf tenderness Back exam: Present: normal inspection Neurological exam: Present: alert, oriented X3, CN II-XII intact Psychiatric exam: Present: normal affect, normal mood Skin exam: Present: warm, dry, intact, normal color. Absent: rash Course Vital Signs 09/08/23 09/08/23 09/08/23 00:35 04:00 06:30 Temperature 99.9 F H 99.8 F H Pulse Rate 82 74 62 Respiratory 18 20 18 Rate Blood Pressure 172/75 167/80 137/83 O2 Sat by Pulse 97 95 96 Oximetry Medical Decision Making - Medical Decision Making Was pt. sent in by a medical professional or institution (, PA, [employer], urgent care, hospital, or fci...) When possible be specific @ -No Did you speak to anyone other than the patient for history (EMS, parent, family, police, friend...)? What history was obtained from this source @ -I spoke with the patient's daughter in regards to symptoms Did you review nursing and triage notes (agree or disagree)? Why? @ -I reviewed and agree with nursing and triage notes Were old charts reviewed (outside hosp., previous admission, EMS record, old EKG, old radiological studies, urgent care reports/EKG's, fci records)? Report findings @ -No old charts were reviewed Differential Diagnosis (chest pain, altered mental status, abdominal pain women, abdominal pain men, vaginal bleeding, weakness, fever, dyspnea, syncope, headache, dizziness, GI bleed, back pain, seizure, CVA, palpatations, mental health, musculoskeletal)? @ -Differential Weakness: Hypoglycemia, shock, sepsis, hyponatremia, anemia, infection, PR, ETOH, adverse medicine reaction, overdose, stroke, this is not meant to be an all-inclusive list. EKG interpreted by me (3pts min.). @ -yes and demonstrates sinus rhythm with a rate of 76. LA interval 175. QRS 87. QTC of 415. No acute ST segment elevations or depressions. Inverted T- wave lead 3 X-rays interpreted by me (1pt min.). @ -Yes and demonstrates some pulmonary vascular congestion vs atelectasis CT interpreted by me (1pt min.). @ -None done U/S interpreted by me (1pt. min.). @ -None done What testing was considered but not performed or refused? (CT, X-rays, U/S, labs)? Why? @ -None What meds were considered but not given or refused? Why? @ -None Did you discuss the management of the patient with other professionals (professionals i.e. , PA, [employer], lab, RT, psych nurse, social studies teacher, moisture meter reader, teacher, chief scientific officer, pillowcase folder)? Give summary @ -No Was smoking cessation discussed for >3mins.? @ -No Was critical care preformed (if so, how long)? @ -No Were there social determinants of health that impacted care today? How? (Homelessness, low income, unemployed, alcoholism, drug addiction, transportation, low edu. Level, literacy, decrease access to med. care, senior care, rehab)? @ -No Was there de-escalation of care discussed even if they declined (Discuss DNR or withdrawal of care, Hospice)? DNR status @ -No What co-morbidities impacted this encounter? (DM, HTN, Smoking, COPD, CAD, Cancer, CVA, ARF, Chemo, Hep., AIDS, mental health diagnosis, sleep apnea, m orbid obesity)? @ -hypertension, hyperlipidemia, diabetes, obstructive sleep apnea Was patient admitted / discharged? Hospital course, mention meds given and rout e, prescriptions, significant lab abnormalities, going to OR and other pertinent info. @ -It upon arrival patient had been placed into room 16. History and physical exam was performed. She is placed on continuous pulse ox and cardiac monitoring. Patient does have some wheezing but no signs of respiratory distress. IV was established. Laboratory studies were conducted. Patient was swabbed for influenza, Coumadin and RSV. Laboratory studies reveal a minimally elevated BNP. Chest x-ray does demonstrate atelectasis versus pulmonary vascular congestion. Patient was given a DuoNeb breathing treatment and 125 of solumedrol for her wheezing. Discuss results with the patient. Due to her profound weakness with difficulties with her ADLs, observation was offered. Spoke with Dr. Bailey for admission. Patient taken to the floor in stable condition Undiagnosed new problem with uncertain prognosis? @ -No Drug Therapy requiring intensive monitoring for toxicity (Heparin, Nitro, Insulin, Cardizem)? @ -No Were any procedures done? @ -No Diagnosis/symptom? @ -acute respiratory insufficiency, acute Covid infection Acute, or Chronic, or Acute on Chronic? @ -acute Uncomplicated (without systemic symptoms) or Complicated (systemic symptoms)? @ -complicated Side effects of treatment?@ -[No] Exacerbation, Progression, or Severe Exacerbation?@ -[No] Poses a threat to life or bodily function? How? (Chest pain, USA, PR, pneumonia, PE, COPD, DKA, ARF, appy, cholecystitis, CVA, Diverticulitis, Homicidal, Suicidal, threat to staff... and all critical care pts)@ -[No] - Lab Data Result diagrams: 09/08/23 03:44 09/08/23 03:44 Lab Results 09/08/23 09/08/23 09/08/23 Range/Units 01:41 03:44 03:44 WBC 11.6 H (3.8-10.6) k/uL RBC 4.25 (3.80-5.40) m/uL Hgb 12.6 (11.4-16.0) gm/dL Hct 37.9 (34.0-46.0) % MCV 89.2 (80.0-100.0) fL MCH 29.7 (25.0-35.0) pg MCHC 33.3 (31.0-37.0) g/dL RDW 13.1 (11.5-15.5) % Plt Count 184 (150-450) k/uL MPV 7.4 Neutrophils % 81 % Lymphocytes % 11 % Monocytes % 7 % Eosinophils % 1 % Basophils % 0 % Neutrophils # 9.3 H (1.3-7.7) k/uL Lymphocytes # 1.2 (1.0-4.8) k/uL Monocytes # 0.8 (0-1.0) k/uL Eosinophils # 0.1 (0-0.7) k/uL Basophils # 0.0 (0-0.2) k/uL PT 10.7 (10.0-12.5) sec INR 1.0 (<1.2) APTT 23.6 (22.0-30.0) sec Sodium (137-145) mmol/L Potassium (3.5-5.1) mmol/L Chloride (98-107) mmol/L Carbon Dioxide (22-30) mmol/L Anion Gap mmol/L BUN (7-17) mg/dL Creatinine (0.52-1.04) mg/dL Est GFR (CKD-EPI)AfAm (>60 ml/min/1.73 sqM) Est GFR (CKD-EPI)NonAf (>60 ml/min/1.73 sqM) Glucose (74-99) mg/dL Plasma Lactic Acid Abhijeet (0.7-2.0) mmol/L Calcium (8.4-10.2) mg/dL Total Bilirubin (0.2-1.3) mg/dL AST (14-36) U/L ALT (4-34) U/L Alkaline Phosphatase (38-126) U/L Troponin I (0.000-0.034) ng/mL NT-Pro-B Natriuret Pep pg/mL Total Protein (6.3-8.2) g/dL Albumin (3.5-5.0) g/dL Influenza Type A (PCR) Not Detected (Not Detectd) Influenza Type B (PCR) Not Detected (Not Detectd) RSV (PCR) Not Detected (Not Detectd) SARS-CoV-2 (PCR) Detected A (Not Detectd) 09/08/23 09/08/23 09/08/23 Range/Units 03:44 03:44 03:44 WBC (3.8-10.6) k/uL RBC (3.80-5.40) m/uL Hgb (11.4-16.0) gm/dL Hct (34.0-46.0) % MCV (80.0-100.0) fL MCH (25.0-35.0) pg MCHC (31.0-37.0) g/dL RDW (11.5-15.5) % Plt Count (150-450) k/uL MPV Neutrophils % % Lymphocytes % % Monocytes % % Eosinophils % % Basophils % % Neutrophils # (1.3-7.7) k/uL Lymphocytes # (1.0-4.8) k/uL Monocytes # (0-1.0) k/uL Eosinophils # (0-0.7) k/uL Basophils # (0-0.2) k/uL PT (10.0-12.5) sec INR (<1.2) APTT (22.0-30.0) sec Sodium 139 (137-145) mmol/L Potassium 3.8 (3.5-5.1) mmol/L Chloride 102 (98-107) mmol/L Carbon Dioxide 25 (22-30) mmol/L Anion Gap 12 mmol/L BUN 16 (7-17) mg/dL Creatinine 1.10 H (0.52-1.04) mg/dL Est GFR (CKD-EPI)AfAm 55 (>60 ml/min/1.73 sqM) Est GFR (CKD-EPI)NonAf 48 (>60 ml/min/1.73 sqM) Glucose 111 H (74-99) mg/dL Plasma Lactic Acid Abhijeet 1.3 (0.7-2.0) mmol/L Calcium 8.5 (8.4-10.2) mg/dL Total Bilirubin 0.7 (0.2-1.3) mg/dL AST 28 (14-36) U/L ALT 24 (4-34) U/L Alkaline Phosphatase 78 (38-126) U/L Troponin I <0.012 (0.000-0.034) ng/mL NT-Pro-B Natriuret Pep 975 pg/mL Total Protein 6.6 (6.3-8.2) g/dL Albumin 3.7 (3.5-5.0) g/dL Influenza Type A (PCR) (Not Detectd) Influenza Type B (PCR) (Not Detectd) RSV (PCR) (Not Detectd) SARS-CoV-2 (PCR) (Not Detectd) Disposition Clinical Impression: Weakness, COVID-19, Pyrexia, Respiratory insufficiency Disposition: ADMITTED IP TO THIS [facility] Condition: Stable Is patient prescribed a controlled substance at d/c from ED?: No Time of Disposition: :28 Decision to Admit Reason: Admit from EC Decision Date: 09/08/23 Decision Time: 05:28
[2023-09-08 04:46] LABS: Basophils % (A) 0 %; Eosinophils # (A) 0.1 k/uL (0-0.7); Eosinophils % (A) 1 %; HCT 37.9 % (34.0-46.0); HGB 12.6 gm/dL (11.4-16.0); Lymphocytes # (A) 1.2 k/uL (1.0-4.8); Lymphocytes % (A) 11 %; MCH 29.7 pg (25.0-35.0); MCHC 33.3 g/dL (31.0-37.0); MCV 89.2 fL (80.0-100.0); Mean Platelet Volume 7.4; Monocytes # (A) 0.8 k/uL (0-1.0); Monocytes % (A) 7 %; Neutrophils # (A) 9.3 k/uL (1.3-7.7); Neutrophils % (A) 81 %; Platelet Count 184 k/uL (150-450); RBC 4.25 m/uL (3.80-5.40); RDW 13.1 % (11.5-15.5); WBC 11.6 k/uL (3.8-10.6)
[2023-09-08 05:06] LABS: ALT 24 U/L (4-34); AST 28 U/L (14-36); African American GFR (CKD) 55 (>60 ml/min/1.73 sqM); Albumin 3.7 g/dL (3.5-5.0); Alkaline Phosphatase 78 U/L (38-126); Anion Gap 12 mmol/L; Blood Urea Nitrogen 16 mg/dL (7-17); Calcium 8.5 mg/dL (8.4-10.2); Carbon Dioxide 25 mmol/L (22-30); Chloride 102 mmol/L (98-107); Glucose 111 mg/dL (74-99); Non-African American GFR(CKD) 48 (>60 ml/min/1.73 sqM); Potassium 3.8 mmol/L (3.5-5.1); Sodium 139 mmol/L (137-145); Total Bilirubin 0.7 mg/dL (0.2-1.3); Total Protein 6.6 g/dL (6.3-8.2)
[2023-09-08 05:13] LABS: NT-Pro-B-Type Natriuretic Pept 975 pg/mL
[2023-09-08] MEDS ORDERED: methylPREDNISolone SOD SUCCI 125 MG/2 ML VIAL IV STA (05:23)
[2023-09-08 05:26] LABS: Partial Thromboplastin Time 23.6 sec (22.0-30.0); Prothrombin Time 10.7 sec (10.0-12.5)
[2023-09-08] MEDS ORDERED: IBUPROFEN 400 MG TAB PO PRN (05:37)
[2023-09-08] MEDS ORDERED: NALOXONE 0.4 MG/ML 1 ML VIAL IV PRN (05:37)
[2023-09-08] MEDS ORDERED: SODIUM CHLORIDE 0.9% 1,000 ML IV SCH (05:45)
--- NOTE | 2023-09-08 07:12 | XR ---
EXAMINATION TYPE: XR chest 2V DATE OF EXAM: 09/08/2023 2:42 AM CLINICAL INDICATION:Female, 78 years old with history of difficulty breathing; H COMPARISON: Chest radiographs from 05/01/2022 TECHNIQUE: XR chest 2V Frontal and lateral views of the chest. FINDINGS: Lungs/Pleura: There is no evidence of pleural effusion, focal consolidation, or pneumothorax. Pulmonary vascularity: Pulmonary vascular congestion. Heart/mediastinum: Cardiomediastinal silhouette is enlarged and stable. Musculoskeletal: No acute osseous pathology. Other findings: None IMPRESSION: Low lung volumes with a generalized hazy appearance which could represent atelectasis versus pulmonar y edema correlate with serum BNP.
[2023-09-08] MEDS: ALBUTEROL HFA INHALER INHALATION SCH ×4 (08:47→18:28)
[2023-09-08] MEDS ORDERED: FAMOTIDINE 20 MG/2 ML VIAL IV SCH (09:00)
[2023-09-08] MEDS: ASCORBIC ACID 500 MG TAB PO SCH (09:16)
[2023-09-08] MEDS: CHOLECALCIFEROL 25 MCG (1000 IU) TABLET PO SCH (09:16)
[2023-09-08] MEDS: ENOXAPARIN 40 MG/0.4 ML SYRINGE SQ SCH (09:17)
[2023-09-08] MEDS: FAMOTIDINE 20 MG/2 ML VIAL IV SCH (09:17)
[2023-09-08] MEDS: ZINC SULFATE 220 MG CAP PO SCH (09:17)
--- NOTE | 2023-09-08 14:00 | P.HPIM ---
History of Present Illness This is a pleasant 78 years old female with past medical history of Heart Failure, Diabetes Mellitus, Hyperlipidemia, Hypertension, chronic kidney disease stage III. She presents because of respiratory symptoms mainly of dyspnea and coughing which feels itself phlegm coming up but that's is dry. Associated with left- sided chest pain that's been happening since yesterday started at 3 PM all her symptoms. Her pain mainly on the left side about 10/10 yesterday which make her worry and so she called EMS, she describes it as dull nonradiating currently better about 5/10 with no associated relieving or precipitating factors She's been feeling little dizzy and total headache although she states her headache is better now. She feels generalized weakness especially in her legs 3 at no asymmetry, no Tingling. She has chronic numbness in her toes and weakness related to her diabetes On admission she had low-grade fever of 99. She is saturating 95% on room air. Labs reviewed showed mild leukocytosis of 11.6, BMP liver enzymes and troponin were negative. Influenza A and type B, RSV, are and detected SARS (coronavirus) is positive Chest x-ray showing atelectasis with no acute process ProBNP is 975 EKG showed normal sinus rhythm at [address]-T changes Review of Systems Review of systems CONSTITUTIONAL: No fever, no malaise, no fatigue. HEENT: No recent visual problems or hearing problems. Denied any sore throat. CARDIOVASCULAR: No orthopnea, PND, no palpitations, no syncope. PULMONARY: No chest wall tenderness, no hemoptysis. GASTROINTESTINAL: No diarrhea, no nausea, no vomiting, no abdominal pain. Normoactive bowel sounds. NEUROLOGICAL: No headaches, no weakness, no numbness. HEMATOLOGICAL: Denies any bleeding or petechiae. GENITOURINARY: Denies any burning micturition, frequency, or urgency. MUSCULOSKELETAL/RHEUMATOLOGICAL: Denies any joint pain, swelling, or any muscle pain. ENDOCRINE: Denies any polyuria or polydipsia. Past Medical History Past Medical History: Heart Failure, Diabetes Mellitus, Hyperlipidemia, Hypertension History of Any Multi-Drug Resistant Organisms: None Reported Past Surgical History: Appendectomy, Breast Surgery, Cholecystectomy, Hysterectomy, Orthopedic Surgery Additional Past Surgical History / Comment(s): cardiac stents Past Psychological History: No Psychological Hx Reported Smoking Status: Former smoker Past Alcohol Use History: None Reported Past Drug Use History: None Reported Medications and Allergies Home Medications Medication Instructions Recorded Confirmed Type Clopidogrel [Plavix] 75 mg PO DAILY 11/18/21 09/08/23 History Evolocumab [Repatha Sureclick] 140 mg SQ Q14D 11/18/21 09/08/23 History Isosorbide Mononitrate ER [Imdur] 60 mg PO DAILY 11/18/21 09/08/23 History Losartan [Cozaar] 50 mg PO BID 11/18/21 09/08/23 History Metoprolol Succinate (ER) [Toprol 50 mg PO DAILY 11/18/21 09/08/23 History Xl] Pantoprazole [Protonix] 40 mg PO DAILY 11/18/21 09/08/23 History predniSONE 2.5 mg PO DAILY 11/18/21 09/08/23 History sitaGLIPtin [Januvia] 100 mg PO DAILY 11/18/21 09/08/23 History Albuterol Inhaler [Ventolin Hfa 2 puff INHALATION RT-QID PRN 09/08/23 09/08/23 History Inhaler] Colestipol HCl [Colestid] 1 gm PO DAILY 09/08/23 09/08/23 History Gabapentin [Neurontin] 300 mg PO DAILY 09/08/23 09/08/23 History Sertraline [Zoloft] 25 mg PO DAILY 09/08/23 09/08/23 History Spironolactone [Aldactone] 25 mg PO DAILY 09/08/23 09/08/23 History hydrALAZINE HCL [Apresoline] 25 mg PO TID 09/08/23 09/08/23 History Allergies Allergy/AdvReac Type Severity Reaction Status Date / Time sulfamethoxazole Allergy Unknown Verified 11/18/21 18:17 [From Bactrim] trimethoprim [From Bactrim] Allergy Unknown Verified 11/18/21 18:17 atorvastatin [From Lipitor] AdvReac Rapid Verified 11/18/21 18:10 Heart Rate/Increased BP duloxetine [From Cymbalta] AdvReac Cough Verified 11/18/21 18:17 ondansetron [From Zofran] AdvReac agitation Verified 11/18/21 18:17 pravastatin AdvReac Rapid Verified 11/18/21 18:17 Heart Rate [place]-DJC-EoT Reductase AdvReac Rapid Verified 11/18/21 18:17 Inhibitor Heart Rate Physical Exam Vitals: Vital Signs Temp Pulse Pulse Resp BP BP Pulse Ox 09/08/23 07:45 98.7 F 67 17 148/73 96 09/08/23 06:30 62 18 137/83 96 09/08/23 04:00 99.8 F H 74 20 167/80 95 09/08/23 00:35 99.9 F H 82 18 172/75 97 Intake and Output 09/07/23 09/08/23 09/08/23 22:59 06:59 14:59 Other: Weight 99.79 kg -GENERAL: The patient is alert and oriented x3, not in any acute distress. Obese HEENT: Pupils are round and equally reacting to light. EOMI. No scleral icterus. No conjunctival pallor. Normocephalic, atraumatic. No pharyngeal erythema. No t hyromegaly. CARDIOVASCULAR: S1 and S2 present. No murmurs, rubs, or gallops. PULMONARY: Chest is clear to auscultation, no wheezing , no crackles. ABDOMEN: Soft, nontender, nondistended, normoactive bowel sounds. No palpable organomegaly. MUSCULOSKELETAL: No joint swelling or deformity. EXTREMITIES: No cyanosis, clubbing, or pedal edema. NEUROLOGICAL: Gross neurological examination did not reveal any focal deficits. SKIN: No rashes. no petechiae. Results CBC & Chem 7: 09/08/23 03:44 09/08/23 03:44 Labs: Abnormal Lab Results - Last 24 Hours (Table) 09/08/23 09/08/23 09/08/23 Range/Units 01:41 03:44 03:44 WBC 11.6 H (3.8-10.6) k/uL Neutrophils # 9.3 H (1.3-7.7) k/uL Creatinine 1.10 H (0.52-1.04) mg/dL Glucose 111 H (74-99) mg/dL SARS-CoV-2 (PCR) Detected A (Not Detectd) Assessment and Plan Assessment: Chest pain, rule out cardiopulmonary causes Covid infection with fever with no evidence of pneumonia or hypoxia Obesity Chronic kidney disease stage III Chronic diarrhea twice per day for years Hypertension Hyperlipidemia Chronic heart failure with no acute exacerbation Diabetic neuropathy Plan: Check d-dimer is positive we will check CTA of the chest to rule out PE, contrast including ALLERGIC reaction and nephrotoxicity which might cause permanent kidney damage are explained for the patient and she verbalized understanding and acceptance Start normal saline 75 mL/h to protect the kidney Start vitamin C, vitamin D and zinc Infectious disease consult Cardiology consult for chest pain and check echocardiogram Labs and medication were reviewed.. Continue same treatment. Continue with symptomatic treatment. Resume home medication. Monitor labs and vitals. DVT and GI prophylaxis. Further recommendations as per clinical course of the patient DVT prophylaxis: Subcutaneous Lovenox GI Prophylaxis: Pepcid Prognosis is guarded
[2023-09-08] MEDS: ACETAMINOPHEN TAB 325 MG TAB PO PRN (19:10)
[2023-09-08] MEDS: SODIUM CHLORIDE 0.9% 1,000 ML IV SCH (19:11)
[2023-09-08] MEDS ORDERED: ALBUTEROL NEBULIZED 2.5 MG/3 ML INHALATION PRN (20:11)
[2023-09-08] MEDS: hydrALAZINE HCL 25 MG TAB PO SCH (21:16)
--- NOTE | 2023-09-08 23:13 | P.CONS ---
History of Present Illness - Reason for Consult Consult date: 09/08/23 - History of Present Illness Patient is a 78-year-old female past medical his significant for diabetes mellitus hypertension hyperlipidemia and heart failure patient presenting to the ER early this morning for evaluation of generalized weakness and shortness of breath currently patient started having flulike symptoms presentation to the hospital and the patient family was concerned because of her increased work of breathing patient mentioned did have an episode of fever rigors and chills started having some scratchy throat and runny nose but no other URI symptoms noticed to have increasing shortness of breath she also have a cough mild to moderate intensity with clear sputum no hemoptysis did have decreased oral intake no nausea no vomiting no abdominal pain or any diarrhea on presentation to the hospital she has low-grade fever of 99.9 F, patient was not tachycardic hypertensive or hypoxic patient did have white count of 11.6 creatinine is 1.10 liver enzymes are normal tested positive for COVID RSV influenza was negative patient did have a chest x-ray low lung volumes with generalized hazy appearance could represent atelectasis versus pulmonary edema patient was admitted to the hospital infectious disease was consulted for further management Past Medical History Past Medical History: Heart Failure, Diabetes Mellitus, Hyperlipidemia, Hypertension History of Any Multi-Drug Resistant Organisms: None Reported Past Surgical History: Appendectomy, Breast Surgery, Cholecystectomy, Hysterectomy, Orthopedic Surgery Additional Past Surgical History / Comment(s): cardiac stents Past Psychological History: No Psychological Hx Reported Smoking Status: Former smoker Past Alcohol Use History: None Reported Past Drug Use History: None Reported Medications and Allergies Home Medications Medication Instructions Recorded Confirmed Type Clopidogrel [Plavix] 75 mg PO DAILY 11/18/21 09/08/23 History Evolocumab [Repatha Sureclick] 140 mg SQ Q14D 11/18/21 09/08/23 History Isosorbide Mononitrate ER [Imdur] 60 mg PO DAILY 11/18/21 09/08/23 History Losartan [Cozaar] 50 mg PO BID 11/18/21 09/08/23 History Metoprolol Succinate (ER) [Toprol 50 mg PO DAILY 11/18/21 09/08/23 History Xl] Pantoprazole [Protonix] 40 mg PO DAILY 11/18/21 09/08/23 History predniSONE 2.5 mg PO DAILY 11/18/21 09/08/23 History sitaGLIPtin [Januvia] 100 mg PO DAILY 11/18/21 09/08/23 History Albuterol Inhaler [Ventolin Hfa 2 puff INHALATION RT-QID PRN 09/08/23 09/08/23 History Inhaler] Colestipol HCl [Colestid] 1 gm PO DAILY 09/08/23 09/08/23 History Gabapentin [Neurontin] 300 mg PO DAILY 09/08/23 09/08/23 History Sertraline [Zoloft] 25 mg PO DAILY 09/08/23 09/08/23 History Spironolactone [Aldactone] 25 mg PO DAILY 09/08/23 09/08/23 History hydrALAZINE HCL [Apresoline] 25 mg PO TID 09/08/23 09/08/23 History Allergies Allergy/AdvReac Type Severity Reaction Status Date / Time sulfamethoxazole Allergy Unknown Verified 11/18/21 18:17 [From Bactrim] trimethoprim [From Bactrim] Allergy Unknown Verified 11/18/21 18:17 atorvastatin [From Lipitor] AdvReac Rapid Verified 11/18/21 18:10 Heart Rate/Increased BP duloxetine [From Cymbalta] AdvReac Cough Verified 11/18/21 18:17 ondansetron [From Zofran] AdvReac agitation Verified 11/18/21 18:17 pravastatin AdvReac Rapid Verified 11/18/21 18:17 Heart Rate [id number] Reductase AdvReac Rapid Verified 11/18/21 18:17 Inhibitor Heart Rate Physical Exam Vitals: Vital Signs Temp Pulse Pulse Resp BP BP Pulse Ox 09/08/23 08:48 96 09/08/23 07:45 98.7 F 67 17 148/73 96 09/08/23 06:30 62 18 137/83 96 09/08/23 04:00 99.8 F H 74 20 167/80 95 09/08/23 00:35 99.9 F H 82 18 172/75 97 Intake and Output 09/07/23 09/08/23 09/08/23 22:59 06:59 14:59 Intake Total 118 Balance 118 Intake: Oral 118 Other: Weight 99.79 kg Results CBC & Chem 7: 09/08/23 03:44 09/08/23 03:44 Labs: Abnormal Lab Results - Last 24 Hours (Table) 09/08/23 09/08/23 09/08/23 Range/Units 01:41 03:44 03:44 WBC 11.6 H (3.8-10.6) k/uL Neutrophils # 9.3 H (1.3-7.7) k/uL Creatinine 1.10 H (0.52-1.04) mg/dL Glucose 111 H (74-99) mg/dL SARS-CoV-2 (PCR) Detected A (Not Detectd) Assessment and Plan Plan: 1patient presented hospital with rigors and chills URI symptoms along with shortness of breath more likely related to the acute COVID-19 infection patient however is not hypoxic or need for supplemental oxygen treatment will be mostly supportive 2-we will obtain a CRP procalcitonin level 3-continue with the Lovenox zinc ascorbic acid no need for steroids or remdesivir Droplet isolation We will follow on clinical condition and cultures to further adjust medication if needed Thank you for this consultation we will follow the patient along with you Dictation was produced using [employer] dictation software. please excuse any grammatical, word or spelling errors. Time with Patient: Greater than 30
[2023-09-09] MEDS: ACETAMINOPHEN TAB 325 MG TAB PO PRN (05:01)
[2023-09-09] MEDS: SODIUM CHLORIDE 0.9% 1,000 ML IV SCH (05:17)
--- NOTE | 2023-09-09 07:55 | CT ---
EXAMINATION TYPE: CT chest angio for PE CT DLP: 493.8 mGycm, Automated exposure control for dose reduction was used. DATE OF EXAM: 09/08/2023 6:01 PM COMPARISON: 11/18/2021. CLINICAL INDICATION:Female, 78 years old with history of elevated D Dimer; Elevated D-dimer. TECHNIQUE/CONTRAST: CTA scan of the thorax is performed with IV Contrast, patient injected with 80 ml mL of Isovue 370, M IP images are created and reviewed these are created on a separate workstation.. FINDINGS: Pulmonary Artery: There is no evidence for a filling defect within the pulmonary vasculature to sugge st acute pulmonary embolism. The pulmonary artery is of normal size. Lungs/Pleura: Intralobular septal thickening. There are trace bilateral pleural effusions. No focal c onsolidation or pneumothorax. Airway: Large airways are patent. Heart: enlarged for size. There is coronary artery atherosclerosis mild to moderate in severity. Vasculature: No evidence of aortic aneurysm. Mediastinum: No gross evidence of adenopathy. Musculoskeletal: No acute osseous abnormalities Soft Tissues: Unremarkable. Lower neck: No significant findings. Upper Abdomen: No significant findings. IMPRESSION: 1. No evidence of pulmonary embolism. 2. Cardiomegaly with pulmonary vascular congestion and trace bilateral pleural effusions correlate fo r congestive heart failure. Follow up recommendations for incidental pulmonary nodules, if there are any, are per [employer] or [employer].
[2023-09-09] MEDS: CHOLECALCIFEROL 25 MCG (1000 IU) TABLET PO SCH (08:09)
[2023-09-09] MEDS: CLOPIDOGREL 75 MG TAB PO SCH (08:09)
[2023-09-09] MEDS: ENOXAPARIN 40 MG/0.4 ML SYRINGE SQ SCH (08:09)
[2023-09-09] MEDS: ASCORBIC ACID 500 MG TAB PO SCH (08:09)
[2023-09-09] MEDS: PANTOPRAZOLE 40 MG TABLET PO SCH (08:10)
[2023-09-09] MEDS: METOPROLOL SUCCINATE (ER) 50 MG TAB.ER.24H PO SCH (08:10)
[2023-09-09] MEDS: GABAPENTIN 300 MG CAP PO SCH (08:10)
[2023-09-09] MEDS: SERTRALINE 25 MG TAB PO SCH (08:10)
[2023-09-09] MEDS: LINAGLIPTIN 5 MG TABLET PO SCH (08:10)
[2023-09-09] MEDS: hydrALAZINE HCL 25 MG TAB PO SCH ×3 (08:10→21:19)
[2023-09-09] MEDS: ISOSORBIDE MONONITRATE ER 60 MG TAB.ER.24H PO SCH (08:10)
[2023-09-09] MEDS: FAMOTIDINE 20 MG/2 ML VIAL IV SCH (08:10)
[2023-09-09] MEDS: ZINC SULFATE 220 MG CAP PO SCH (08:11)
--- NOTE | 2023-09-09 08:48 | CA ---
Transthoracic Echo Report Name: Ivet Torres Age: 78 Gender: F : 1945 Exam Date: 09/08/2023 17:54 Exam Location: [facility] Ht (in): 62 Wt (lb): 220 Ordering Physician: Chuy Bailey MD Attending/Referring Phys: [id number], Lynn Nightman Procedure CPT: Indications: Rule out heart disease Cardiac Hx: Technical Quality: Technically difficult study Contrast 1: Definity Total Dose (mL): 2 Contrast 2: Total Dose (mL): MEASUREMENTS (Male / Female) Normal Values 2D ECHO LV Diastolic Diameter PLAX 4.9 cm 4.2 - 5.9 / 3.9 - 5.3 cm LV Systolic Diameter PLAX 3.8 cm IVS Diastolic Thickness 1.3 cm 0.6 - 1.0 / 0.6 - 0.9 cm LVPW Diastolic Thickness 1.2 cm 0.6 - 1.0 / 0.6 - 0.9 cm LV Relative Wall Thickness 0.5 DOPPLER AV Peak Velocity 145.9 cm/s AV Peak Gradient 8.5 mmHg AV Mean Velocity 112.7 cm/s AV Mean Gradient 5.4 mmHg AV Velocity Time Integral 30.9 cm MV Area PHT 3.3 cm??? Mitral E Point Velocity 70.8 cm/s Mitral A Point Velocity 121.0 cm/s Mitral E to A Ratio 0.6 MV Deceleration Time 232.7 ms TR Peak Velocity 282.1 cm/s TR Peak Gradient 31.8 mmHg Right Ventricular Systolic Press 36.8 mmHg FINDINGS Left Ventricle Mildly increased left ventricular wall thickness. Left ventricular cavity size normal. Normal left ventricular systolic function with no obvious regional wall motion abnormalities. Left ventricular ejection fraction is estimated at 55-60 %. Right Ventricle Right ventricle not well visualized. Mild pulmonary hypertension. Right Atrium Right atrium not well visualized. Left Atrium Normal left atrial size. Mitral Valve Mitral valve not well visualized. No mitral stenosis. No mitral regurgitation. Aortic Valve Aortic valve not well visualized. No aortic valve stenosis or regurgitation. Tricuspid Valve Mild tricuspid regurgitation. Pulmonic Valve Pulmonic valve not well visualized. Pericardium Minimal pericardial effusion (normal variant). Echo free space anterior to the right ventricle likely represents a fat pad. Aorta Normal size aortic root and proximal ascending aorta. CONCLUSIONS Mildly increased left ventricular wall thickness Left ventricular EF 55-60% RVSP 37 No mitral regurgitation Mild tricuspid regurgitation Previewed by: Dr. Orlando Hernandez DO (Electronically Signed) Final Date: 09 September 2023 08:47
[2023-09-09] MEDS: ALBUTEROL HFA INHALER INHALATION SCH ×4 (08:52→20:14)
[2023-09-09] MEDS ORDERED: COLESTIPOL HCL 1 GM PO SCH (09:00)
[2023-09-09 11:47] LABS: Basophils # (A) 0.02 X 10*3/uL (0.00-0.10); Basophils % (A) 0.2 %; Eosinophils # (A) 0.03 X 10*3/uL (0.04-0.35); Eosinophils % (A) 0.3 %; HCT 33.9 % (37.2-46.3); HGB 11.3 g/dL (12.0-15.0); Lymphocytes # (A) 1.25 X 10*3/uL (0.90-5.00); Lymphocytes % (A) 13.4 %; MCH 30.1 pg (27.0-32.0); MCHC 33.3 g/dL (32.0-37.0); MCV 90.2 FL (80.0-97.0); Mean Platelet Volume 9.6 FL (9.5-12.2); Monocytes # (A) 1.22 X 10*3/uL (0.20-1.00); Monocytes % (A) 13.1 %; NRBC Per 100 WBC 0 X 10*3/uL (0.00-0.01); Neutrophils # (A) 6.78 X 10*3/uL (1.80-7.70); Neutrophils % (A) 72.6 %; Platelet Count 163 X 10*3/uL (140-440); RBC 3.76 X 10*6/uL (4.10-5.20); RDW 13.1 % (11.5-14.5); WBC 9.34 X 10*3/uL (4.50-10.00)
--- NOTE | 2023-09-09 11:50 | P.CRDCN ---
History of Present Illness Consult date: 09/09/23 Consult reason: chest pain Chief complaint: chest pain, sob, aches History of present illness: History of present illness: Patient is a pleasant 78-year-old female with significant past medical history of CAD status post 2 stents approximately 3 years ago, diabetes, hyperlipidemia, hypertension, CKD who presented complaints of chills, body aches, shortness of breath, and chest discomfort. She does follow with a glass tinter from [facility]. She had a recent heart cath over the summer that was reportedly "okay". She reports that on Sunday she developed chills, body aches, shortness of breath, and chest discomfort. She came to the ER and was found to be Covid positive. Troponins were negative 1. BNP 975. CTA of the chest that was negative for PE, shows cardiomegaly with pulmonary vascular congestion and trace bilateral pleural effusions. Echocardiogram 09/08/23 shows EF 5560 percent, RVSP 37. She has not had any issues with swelling. She does report feeling slightly worse today with more phlegm and wheezing and shortness of breath. Denies any chest pain. REVIEW OF SYSTEMS: Reports fever/chills. No diaphoresis. Patient denies headache, dizziness, blurred vision, double vision. Patient denies any stomach discomfort. No nausea, vomiting. No hematochezia. No hematemesis. Denies any black stools or blood in his stools. Denies dysuria or hematuria. No muscle weakness or numbness. No chest pain or pressure. Reports shortness of breath and cough. PHYSICAL EXAMINATION: This is a 78-year-old female in no apparent distress at the time of my examination. HEENT: Head is atraumatic, normocephalic. Pupils are equal, round. Sclerae anicteric. Conjunctivae are clear. Mucous membranes of the mouth are moist. Neck is supple. There is no jugular venous distention. No carotid bruit is heard. CHEST EXAMINATION: Lungs slight wheeze. No chest wall tenderness is noted on palpation or with deep breathing. HEART EXAMINATION: Heart regular rate and rhythm. S1, S2 heard. No murmurs, gallops or rub. ABDOMEN: Soft, nontender. Bowel sounds are heard. EXTREMITIES: 2+ peripheral pulses with no evidence of peripheral edema and no calf tenderness noted. NEUROLOGIC EXAMINATION: Patient is awake, alert and oriented x3. IMPRESSION AND PLAN: 1. CAD status post PCI 3 years ago 2. Diabetes type 2 3. Hypertension 4. Hyperlipidemia 5. CKD 6. COVID-19 infection 7. Trace bilateral pleural effusions PLAN: Reviewed echocardiogram, relatively stable. Abnormal CT chest findings are more likely related to Covid then heart failure. Recommend resuming home diuretics. Symptoms are likely related to her COVID-19 infection. No further cardiac workup indicated at this time. Okay to discharge home from cardiology standpoint. Please call with any questions. Follow up in 1 week. I am dictating on behalf of Dr. Orlando Hernandez's history/physical and assessment/plan. Past Medical History Past Medical History: Heart Failure, Diabetes Mellitus, Hyperlipidemia, Hypertension History of Any Multi-Drug Resistant Organisms: None Reported Past Surgical History: Appendectomy, Breast Surgery, Cholecystectomy, Hysterectomy, Orthopedic Surgery Additional Past Surgical History / Comment(s): cardiac stents Past Psychological History: No Psychological Hx Reported Smoking Status: Former smoker Past Alcohol Use History: None Reported Past Drug Use History: None Reported Medications and Allergies Home Medications Medication Instructions Recorded Confirmed Type Clopidogrel [Plavix] 75 mg PO DAILY 11/18/21 09/08/23 History Evolocumab [Repatha Sureclick] 140 mg SQ Q14D 11/18/21 09/08/23 History Isosorbide Mononitrate ER [Imdur] 60 mg PO DAILY 11/18/21 09/08/23 History Losartan [Cozaar] 50 mg PO BID 11/18/21 09/08/23 History Metoprolol Succinate (ER) [Toprol 50 mg PO DAILY 11/18/21 09/08/23 History Xl] Pantoprazole [Protonix] 40 mg PO DAILY 11/18/21 09/08/23 History predniSONE 2.5 mg PO DAILY 11/18/21 09/08/23 History sitaGLIPtin [Januvia] 100 mg PO DAILY 11/18/21 09/08/23 History Albuterol Inhaler [Ventolin Hfa 2 puff INHALATION RT-QID PRN 09/08/23 09/08/23 History Inhaler] Colestipol HCl [Colestid] 1 gm PO DAILY 09/08/23 09/08/23 History Gabapentin [Neurontin] 300 mg PO DAILY 09/08/23 09/08/23 History Sertraline [Zoloft] 25 mg PO DAILY 09/08/23 09/08/23 History Spironolactone [Aldactone] 25 mg PO DAILY 09/08/23 09/08/23 History hydrALAZINE HCL [Apresoline] 25 mg PO TID 09/08/23 09/08/23 History Allergies Allergy/AdvReac Type Severity Reaction Status Date / Time sulfamethoxazole Allergy Unknown Verified 11/18/21 18:17 [From Bactrim] trimethoprim [From Bactrim] Allergy Unknown Verified 11/18/21 18:17 atorvastatin [From Lipitor] AdvReac Rapid Verified 11/18/21 18:10 Heart Rate/Increased BP duloxetine [From Cymbalta] AdvReac Cough Verified 11/18/21 18:17 ondansetron [From Zofran] AdvReac agitation Verified 11/18/21 18:17 pravastatin AdvReac Rapid Verified 11/18/21 18:17 Heart Rate [id number]-[id number]-[id number] Reductase AdvReac Rapid Verified 11/18/21 18:17 Inhibitor Heart Rate Physical Exam Vitals: Vital Signs Temp Pulse Resp BP Pulse Ox 09/09/23 07:10 98.4 F 77 20 128/66 95 09/09/23 03:47 98.4 F 87 18 178/73 96 09/09/23 02:16 81 18 09/08/23 21:16 81 18 09/08/23 19:37 99.2 F 81 18 179/79 98 09/08/23 14:45 98.6 F 77 18 164/76 95 Intake and Output 09/08/23 09/09/23 09/09/23 22:59 06:59 14:59 Intake Total 236 118 Balance 236 118 Intake: Oral 236 118 Other: Voiding Method Toilet Toilet # Voids 1 2 Results 09/08/23 03:44 09/08/23 03:44 Current Medications Generic Name Dose Route Start Last Admin Trade Name Freq PRN Reason Stop Dose Admin Acetaminophen 650 mg 09/08/23 05:37 09/09/23 05:01 Acetaminophen Tab 325 Mg Tab PO 650 mg Q6HR PRN Administration Mild Pain or Fever > 100.5 Albuterol Sulfate 2 puff 09/08/23 08:00 09/08/23 18:28 Albuterol Hfa Inhaler INHALATION 2 puff RT-QID MILEY Administration Albuterol Sulfate 2.5 mg 09/08/23 20:11 Albuterol Nebulized 2.5 Mg/3 Ml INHALATION RT-QID PRN Shortness Of Breath Ascorbic Acid 1,000 mg 09/08/23 09:00 09/09/23 08:09 Ascorbic Acid 500 Mg Tab PO 1,000 mg DAILY MILEY Administration Cholecalciferol 50 mcg 09/08/23 09:00 09/09/23 08:09 Cholecalciferol 25 Mcg (1000 Iu) Tablet PO 50 mcg DAILY MILEY Administration Clopidogrel Bisulfate 75 mg 09/09/23 09:00 09/09/23 08:09 Clopidogrel 75 Mg Tab PO 75 mg DAILY MILEY Administration Enoxaparin Sodium 40 mg 09/08/23 09:00 09/09/23 08:09 Enoxaparin 40 Mg/0.4 Ml Syringe SQ 40 mg DAILY MILEY Administration Famotidine 20 mg 09/08/23 09:00 09/09/23 08:10 Famotidine 20 Mg/2 Ml Vial IV 20 mg DAILY MILEY Administration Gabapentin 300 mg 09/09/23 09:00 09/09/23 08:10 Gabapentin 300 Mg Cap PO 300 mg DAILY MILEY Administration Hydralazine HCl 25 mg 09/08/23 22:00 09/09/23 08:10 Hydralazine Hcl 25 Mg Tab PO 25 mg TID MILEY Administration Isosorbide Mononitrate 60 mg 09/09/23 09:00 09/09/23 08:10 Isosorbide Mononitrate Er 60 Mg Tab.Er.24h PO 60 mg DAILY MILEY Administration Linagliptin 5 mg 09/09/23 09:00 09/09/23 08:10 Linagliptin 5 Mg Tablet PO 5 mg DAILY MILEY Administration Metoprolol Succinate 50 mg 09/09/23 09:00 09/09/23 08:10 Metoprolol Succinate (Er) 50 Mg Tab.Er.24h PO 50 mg DAILY MILEY Administration Naloxone HCl 0.2 mg 09/08/23 05:37 Naloxone 0.4 Mg/Ml 1 Ml Vial IV Q2M PRN Opioid Reversal Non-Formulary Medication 1 gm 09/09/23 09:00 Colestipol Hcl [Colestid] PO DAILY MILEY Pantoprazole Sodium 40 mg 09/09/23 09:00 09/09/23 08:10 Pantoprazole 40 Mg Tablet PO 40 mg DAILY MILEY Administration Sertraline HCl 25 mg 09/09/23 09:00 09/09/23 08:10 Sertraline 25 Mg Tab PO Not Given DAILY MILEY Zinc Sulfate 220 mg 09/08/23 09:00 09/09/23 08:11 Zinc Sulfate 220 Mg Cap PO 220 mg DAILY MILEY Administration Intake and Output 09/08/23 09/09/23 09/09/23 22:59 06:59 14:59 Intake Total 236 118 Balance 236 118 Intake: Oral 236 118 Other: Voiding Method Toilet Toilet # Voids 1 2 09/08/23 03:44 09/08/23 03:44
--- NOTE | 2023-09-09 12:05 | P.PN ---
Subjective This is a pleasant 78 years old female with past medical history of Heart Failure, Diabetes Mellitus, Hyperlipidemia, Hypertension, chronic kidney disease stage III. She presents because of respiratory symptoms mainly of dyspnea and coughing which feels itself phlegm coming up but that's is dry. Associated with left- sided chest pain that's been happening since yesterday started at 3 PM all her symptoms. Her pain mainly on the left side about 10/10 yesterday which make her worry and so she called EMS, she describes it as dull nonradiating currently better about 5/10 with no associated relieving or precipitating factors She's been feeling little dizzy and total headache although she states her headache is better now. She feels generalized weakness especially in her legs 3 at no asymmetry, no Tingling. She has chronic numbness in her toes and weakness related to her diabetes On admission she had low-grade fever of 99. She is saturating 95% on room air. Labs reviewed showed mild leukocytosis of 11.6, BMP liver enzymes and troponin were negative. Influenza A and type B, RSV, are and detected SARS (coronavirus) is positive Chest x-ray showing atelectasis with no acute process ProBNP is 975 EKG showed normal sinus rhythm at [address]-T changes 09/09/2023 And does not feel well today, she vomited this morning after she ate her breakfast. No more vomiting no abdominal pain. No diarrhea. She is also coughing a lot and she has some wheezing most likely due to fluid overload seen on CAT scan of the chest. CT was negative for acute pulmonary embolism. She is also has coughing and she's been treated with Robitussin when necessary. No abdominal pain, no change in urine or bowel habits. No fever. Her vitals are stable She's mildly hypoxic WBC Shields frustrating to 9.3 Ejection fraction is 55-60% This was discussed with cardiology team recommended to discontinue IV fluids and resume her oral Lasix His continued and vitamin C, vitamin D and zinc. She says at home she takes prednisone 2.5 g 4 months and years for chronic fibromyalgia rheumatica. Review of systems CONSTITUTIONAL: No fever, no malaise, no fatigue. HEENT: No recent visual problems or hearing problems. Denied any sore throat. CARDIOVASCULAR: No orthopnea, PND, no palpitations, no syncope. PULMONARY: No shortness of breath, no cough, no hemoptysis. GASTROINTESTINAL: No diarrhea, no nausea, no vomiting, no abdominal pain. Normoactive bowel sounds. Active Medications Generic Name Dose Route Start Last Admin Trade Name Freq PRN Reason Stop Dose Admin Acetaminophen 650 mg 09/08/23 05:37 09/09/23 05:01 Acetaminophen Tab 325 Mg Tab PO 650 mg Q6HR PRN Administration Mild Pain or Fever > 100.5 Albuterol Sulfate 2 puff 09/08/23 08:00 09/08/23 18:28 Albuterol Hfa Inhaler INHALATION 2 puff RT-QID MILEY Administration Albuterol Sulfate 2.5 mg 09/08/23 20:11 Albuterol Nebulized 2.5 Mg/3 Ml INHALATION RT-QID PRN Shortness Of Breath Ascorbic Acid 1,000 mg 09/08/23 09:00 09/09/23 08:09 Ascorbic Acid 500 Mg Tab PO 1,000 mg DAILY MILEY Administration Cholecalciferol 50 mcg 09/08/23 09:00 09/09/23 08:09 Cholecalciferol 25 Mcg (1000 Iu) Tablet PO 50 mcg DAILY MILEY Administration Clopidogrel Bisulfate 75 mg 09/09/23 09:00 09/09/23 08:09 Clopidogrel 75 Mg Tab PO 75 mg DAILY MILEY Administration Enoxaparin Sodium 40 mg 09/08/23 09:00 09/09/23 08:09 Enoxaparin 40 Mg/0.4 Ml Syringe SQ 40 mg DAILY MILEY Administration Famotidine 20 mg 09/08/23 09:00 09/09/23 08:10 Famotidine 20 Mg/2 Ml Vial IV 20 mg DAILY MILEY Administration Furosemide 40 mg 09/09/23 12:00 Furosemide 40 Mg Tab PO DAILY MILEY Gabapentin 300 mg 09/09/23 09:00 09/09/23 08:10 Gabapentin 300 Mg Cap PO 300 mg DAILY MILEY Administration Hydralazine HCl 25 mg 09/08/23 22:00 09/09/23 08:10 Hydralazine Hcl 25 Mg Tab PO 25 mg TID MILEY Administration Isosorbide Mononitrate 60 mg 09/09/23 09:00 09/09/23 08:10 Isosorbide Mononitrate Er 60 Mg Tab.Er.24h PO 60 mg DAILY MILEY Administration Linagliptin 5 mg 09/09/23 09:00 09/09/23 08:10 Linagliptin 5 Mg Tablet PO 5 mg DAILY MILEY Administration Metoprolol Succinate 50 mg 09/09/23 09:00 09/09/23 08:10 Metoprolol Succinate (Er) 50 Mg Tab.Er.24h PO 50 mg DAILY MILEY Administration Naloxone HCl 0.2 mg 09/08/23 05:37 Naloxone 0.4 Mg/Ml 1 Ml Vial IV Q2M PRN Opioid Reversal Non-Formulary Medication 1 gm 09/09/23 09:00 Colestipol Hcl [Colestid] PO DAILY MILEY Pantoprazole Sodium 40 mg 09/09/23 09:00 09/09/23 08:10 Pantoprazole 40 Mg Tablet PO 40 mg DAILY MILEY Administration Sertraline HCl 25 mg 09/09/23 09:00 09/09/23 08:10 Sertraline 25 Mg Tab PO Not Given DAILY MILEY Zinc Sulfate 220 mg 09/08/23 09:00 09/09/23 08:11 Zinc Sulfate 220 Mg Cap PO 220 mg DAILY MILEY Administration Objective - Vital Signs Vital signs: Vital Signs Temp 98.4 F 09/09/23 07:10 Pulse 77 09/09/23 07:10 Resp 20 09/09/23 07:10 BP 128/66 09/09/23 07:10 Pulse Ox 95 09/09/23 07:10 FiO2 Intake & Output 09/08/23 09/09/23 09/09/23 18:59 06:59 18:59 Intake Total 354 118 Balance 354 118 Intake: Oral 354 118 Other: Voiding Method Toilet Toilet # Voids 2 - Exam -GENERAL: The patient is alert and oriented x3, not in any acute distress. Obese. HEENT: Pupils are round and equally reacting to light. EOMI. No scleral icterus. No conjunctival pallor. Normocephalic, atraumatic. No pharyngeal erythema. No thyromegaly. CARDIOVASCULAR: S1 and S2 present. No murmurs, rubs, or gallops. -PULMONARY: Chest is clear to auscultation, mild bilateral expiratory wheezing , no crackles. ABDOMEN: Soft, nontender, nondistended, normoactive bowel sounds. No palpable organomegaly. MUSCULOSKELETAL: No joint swelling or deformity. EXTREMITIES: No cyanosis, clubbing, or pedal edema. NEUROLOGICAL: Gross neurological examination did not reveal any focal deficits. SKIN: No rashes. no petechiae. - Labs CBC & Chem 7: 09/09/23 06:26 09/08/23 03:44 Labs: Abnormal Lab Results - Last 24 Hours (Table) 09/08/23 09/09/23 Range/Units 14:34 06:26 RBC 3.76 L (4.10-5.20) X 10*6/uL Hgb 11.3 L (12.0-15.0) g/dL Hct 33.9 L (37.2-46.3) % Monocytes # 1.22 H (0.20-1.00) X 10*3/uL Eosinophils # 0.03 L (0.04-0.35) X 10*3/uL D-Dimer 0.95 H (<0.60) mg/L FEU Assessment and Plan Assessment: Chest pain, most likely musculoskeletal and related to her viral infection Covid infection with fever with no evidence of pneumonia or hypoxia Mild acute diastolic CHF on chronic disease with ejection fraction 55-60% Obesity Chronic kidney disease stage III Chronic diarrhea twice per day for years Hypertension Hyperlipidemia Chronic heart failure with no acute exacerbation Diabetic neuropathy Plan: Continue with home dose of prednisone 2.5 mg A breathing treatment Discontinue IV fluid Resume her oral Lasix 40 mg daily Start vitamin C, vitamin D and zinc Infectious disease consult Cardiology consult Labs and medication were reviewed.. Continue same treatment. Continue with symptomatic treatment. Resume home medication. Monitor labs and vitals. DVT and GI prophylaxis. Further recommendations as per clinical course of the patie nt DVT prophylaxis: Subcutaneous Lovenox GI Prophylaxis: Pepcid Prognosis is guarded
[2023-09-09 12:33] LABS: Glucose,Whole Blood 174 mg/dL (70-110)
[2023-09-09 13:18] LABS: BUN/Creat Ratio 14.58 Ratio (12.00-20.00); Blood Urea Nitrogen 17.5 mg/dL (9.0-27.0); Calcium 8.2 mg/dL (8.7-10.3); Carbon Dioxide 24.1 mmol/L (21.6-31.8); Chloride 106 mmol/L (96-109); Glucose 167 mg/dL (70-110); Potassium 3.7 mmol/L (3.5-5.5); Sodium 141 mmol/L (135-145)
[2023-09-09] MEDS: Colestipol Hcl [Colestid] 1 GM Tablet PO SCH (16:30)
[2023-09-09] MEDS: predniSONE 2.5 MG TAB PO SCH (16:30)
[2023-09-09] MEDS: FUROSEMIDE 40 MG TAB PO SCH (16:31)
[2023-09-09 17:35] LABS: Glucose,Whole Blood 158 mg/dL (70-110)
[2023-09-09 21:10] LABS: Glucose,Whole Blood 174 mg/dL (70-110)
[2023-09-09] MEDS: FLUTICASONE 50MCG/SPRAY NASAL 16GM EA NOSTRIL SCH (21:49)
[2023-09-09] MEDS: TEMAZEPAM 7.5 MG CAP PO PRN (21:49)
[2023-09-10 06:13] LABS: Glucose,Whole Blood 110 mg/dL (70-110)
[2023-09-10] MEDS: ALBUTEROL HFA INHALER INHALATION SCH ×4 (09:27→20:50)
[2023-09-10] MEDS: ENOXAPARIN 40 MG/0.4 ML SYRINGE SQ SCH (10:27)
[2023-09-10] MEDS: FAMOTIDINE 20 MG/2 ML VIAL IV SCH (10:27)
[2023-09-10] MEDS: hydrALAZINE HCL 25 MG TAB PO SCH ×3 (10:28→23:45)
[2023-09-10] MEDS: ZINC SULFATE 220 MG CAP PO SCH (10:28)
[2023-09-10] MEDS: ASCORBIC ACID 500 MG TAB PO SCH (10:28)
[2023-09-10] MEDS: PANTOPRAZOLE 40 MG TABLET PO SCH (10:28)
[2023-09-10] MEDS: LINAGLIPTIN 5 MG TABLET PO SCH (10:28)
[2023-09-10] MEDS: predniSONE 2.5 MG TAB PO SCH (10:28)
[2023-09-10] MEDS: CHOLECALCIFEROL 25 MCG (1000 IU) TABLET PO SCH (10:28)
[2023-09-10] MEDS: ISOSORBIDE MONONITRATE ER 60 MG TAB.ER.24H PO SCH (10:28)
[2023-09-10] MEDS: GABAPENTIN 300 MG CAP PO SCH (10:28)
[2023-09-10] MEDS: Colestipol Hcl [Colestid] 1 GM Tablet PO SCH (10:29)
[2023-09-10] MEDS: CLOPIDOGREL 75 MG TAB PO SCH (10:29)
[2023-09-10] MEDS: METOPROLOL SUCCINATE (ER) 50 MG TAB.ER.24H PO SCH (10:29)
[2023-09-10] MEDS: SERTRALINE 25 MG TAB PO SCH (10:29)
[2023-09-10] MEDS: FLUTICASONE 50MCG/SPRAY NASAL 16GM EA NOSTRIL SCH ×2 (10:30→20:13)
[2023-09-10] MEDS: FUROSEMIDE 40 MG TAB PO SCH (11:18)
[2023-09-10 12:06] LABS: Glucose,Whole Blood 141 mg/dL (70-110)
[2023-09-10 15:00] LABS: African American GFR (CKD) 54 (>60 ml/min/1.73 sqM); Anion Gap 10 mmol/L; Blood Urea Nitrogen 18 mg/dL (7-17); Calcium 8.1 mg/dL (8.4-10.2); Carbon Dioxide 28 mmol/L (22-30); Chloride 101 mmol/L (98-107); Glucose 148 mg/dL (74-99); Non-African American GFR(CKD) 47 (>60 ml/min/1.73 sqM); Potassium 3.5 mmol/L (3.5-5.1); Sodium 139 mmol/L (137-145)
[2023-09-10 17:06] LABS: Glucose,Whole Blood 178 mg/dL (70-110)
[2023-09-10] MEDS: ACETAMINOPHEN TAB 325 MG TAB PO PRN ×2 (17:40→23:42)
[2023-09-10 20:23] LABS: Glucose,Whole Blood 122 mg/dL (70-110)
--- NOTE | 2023-09-10 23:31 | P.PN ---
Subjective Progress Note Date: 09/09/23 Principal diagnosis: Reason for follow-up visit COVID-19 infection Patient is a 78-year-old female past medical his significant for diabetes mellitus hypertension hyperlipidemia and heart failure patient presenting to the ER for evaluation of generalized weakness and shortness of breath patient has been diagnosed with COVID-19 infection On today's evaluation that is 09/09/2023 the patient did have resolution of her fever and the patient is afebrile this morning patient is feeling slightly better she is breathing comfortably denies any chest pain cough is decreased intensity no nausea no vomiting no abdominal pain or diarrhea. Patient did have a white count of 9.34 creatinine is 1.2 CRP 6.80 Pro-Kang 0.[address] did have a [address] angiogram of the chest that was negative for PE cardiomegaly with pulmonary vascular congestion Objective - Vital Signs Vital signs: Vital Signs Temp 98.4 F 09/09/23 07:10 Pulse 77 09/09/23 07:10 Resp 20 09/09/23 07:10 BP 128/66 09/09/23 07:10 Pulse Ox 95 09/09/23 07:10 FiO2 Intake & Output 09/08/23 09/09/23 09/09/23 18:59 06:59 18:59 Intake Total 354 118 Balance 354 118 Intake: Oral 354 118 Other: Voiding Method Toilet Toilet # Voids 2 - Exam GENERAL DESCRIPTION: Elderly female lying in bed in no distress RESPIRATORY SYSTEM: Unlabored breathing , decreased breath sounds at bases HEART: S1 S2 regular rate and rhythm ,no loud murmurs ABDOMEN: Soft , no tenderness EXTREMITIES: No edema feet - Labs CBC & Chem 7: 09/09/23 06:26 09/10/23 14:17 Labs: Abnormal Lab Results - Last 24 Hours (Table) 09/08/23 09/09/23 09/09/23 Range/Units 14:34 06:26 06:26 RBC 3.76 L (4.10-5.20) X 10*6/uL Hgb 11.3 L (12.0-15.0) g/dL Hct 33.9 L (37.2-46.3) % Monocytes # 1.22 H (0.20-1.00) X 10*3/uL Eosinophils # 0.03 L (0.04-0.35) X 10*3/uL D-Dimer 0.95 H (<0.60) mg/L FEU Est GFR (CKD-EPI) 46 L (>=60) Glucose 167 H (70-110) mg/dL POC Glucose (mg/dL) (70-110) mg/dL Calcium 8.2 L (8.7-10.3) mg/dL C-Reactive Protein 6.80 H (0.00-0.80) mg/dL 09/09/23 Range/Units 12:31 RBC (4.10-5.20) X 10*6/uL Hgb (12.0-15.0) g/dL Hct (37.2-46.3) % Monocytes # (0.20-1.00) X 10*3/uL Eosinophils # (0.04-0.35) X 10*3/uL D-Dimer (<0.60) mg/L FEU Est GFR (CKD-EPI) (>=60) Glucose (70-110) mg/dL POC Glucose (mg/dL) 174 H (70-110) mg/dL Calcium (8.7-10.3) mg/dL C-Reactive Protein (0.00-0.80) mg/dL Assessment and Plan (1) COVID-19 Current Visit: Yes Status: Acute Code(s): U07.1 - COVID-19 SNOMED Code(s): 895885400 (2) Pyrexia Current Visit: Yes Status: Acute Code(s): R50.9 - FEVER, UNSPECIFIED SNOMED Code(s): 185543142 (3) Weakness Current Visit: Yes Status: Acute Code(s): R53.1 - WEAKNESS SNOMED Code(s): 72199642 Plan: 1patient presented hospital with rigors and chills URI symptoms along with shortness of breath more likely related to the acute COVID-19 infection patient however is not hypoxic or need for supplemental oxygen treatment will be mostly supportive 2patient did have a mildly elevated CRP and procalcitonin only 0.11, the patient did have a CT angiogram of the chest that was negative for PE and did not show any evidence of groundglass appearance or consolidation. 3patient to continue with the current supportive treatment of zinc ascorbic acid Lovenox no need for steroids or remdesivir Dictation was produced using [employer] dictation software. please excuse any grammatical, word or spelling errors.
--- NOTE | 2023-09-10 23:34 | P.PN ---
Subjective Progress Note Date: 09/10/23 Principal diagnosis: Reason for follow-up visit COVID-19 infection Patient is a 78-year-old female past medical his significant for diabetes mellitus hypertension hyperlipidemia and heart failure patient presenting to the ER for evaluation of generalized weakness and shortness of breath patient has been diagnosed with COVID-19 infection On today's evaluation that is 09/10/2023 the patient did have did have a low- grade fever of 100.5 F last night however the patient is afebrile this morning patient mention not feeling that good today patient denies any worsening cough or sputum production has been complaining of some pleuritic chest pain nausea with no vomiting no abdominal pain no diarrhea Patient white count 9.34 as of yesterday creatinine is 1.12 today Objective - Vital Signs Vital signs: Vital Signs Temp 99.4 F 09/10/23 07:50 Pulse 80 09/10/23 07:50 Resp 18 09/10/23 07:50 BP 165/75 09/10/23 07:50 Pulse Ox 93 L 09/10/23 07:50 FiO2 Intake & Output 09/09/23 09/10/23 09/10/23 18:59 06:59 18:59 Intake Total 354 236 Output Total 4 Balance 350 236 Intake: Oral 354 236 Output: Urine 4 Other: Voiding Method Toilet Toilet # Voids 2 - Exam GENERAL DESCRIPTION: Elderly female lying in bed in no distress RESPIRATORY SYSTEM: Unlabored breathing , decreased breath sounds at bases HEART: S1 S2 regular rate and rhythm ,no loud murmurs ABDOMEN: Soft , no tenderness EXTREMITIES: No edema feet - Labs CBC & Chem 7: 09/09/23 06:26 09/10/23 14:17 Labs: Abnormal Lab Results - Last 24 Hours (Table) 09/09/23 09/09/23 09/09/23 Range/Units 06:26 06:26 17:30 Est GFR (CKD-EPI) 46 L (>=60) Glucose 167 H (70-110) mg/dL POC Glucose (mg/dL) 158 H (70-110) mg/dL Calcium 8.2 L (8.7-10.3) mg/dL C-Reactive Protein 6.80 H (0.00-0.80) mg/dL Procalcitonin 0.11 H (0.02-0.09) ng/mL 09/09/23 09/10/23 Range/Units 21:09 12:05 Est GFR (CKD-EPI) (>=60) Glucose (70-110) mg/dL POC Glucose (mg/dL) 174 H 141 H (70-110) mg/dL Calcium (8.7-10.3) mg/dL C-Reactive Protein (0.00-0.80) mg/dL Procalcitonin (0.02-0.09) ng/mL Assessment and Plan (1) COVID-19 Current Visit: Yes Status: Acute Code(s): U07.1 - COVID-19 SNOMED Code(s): 474125009 (2) Pyrexia Current Visit: Yes Status: Acute Code(s): R50.9 - FEVER, UNSPECIFIED SNOMED Code(s): 533144604 (3) Weakness Current Visit: Yes Status: Acute Code(s): R53.1 - WEAKNESS SNOMED Code(s): 58218804 Plan: 1patient presented hospital with rigors and chills URI symptoms along with shortness of breath more likely related to the acute COVID-19 infection patient however is not hypoxic or need for supplemental oxygen treatment will be mostly supportive 2patient did have a mildly elevated CRP and procalcitonin only 0.11, the patient did have a CT angiogram of the chest that was negative for PE and did not show any evidence of groundglass appearance or consolidation. 3patient did have low-grade fever last night however did have resolution of the fever patient mention not feeling very good today we will hold her discharge and continue with the current treatment of zinc, ascorbic acid Lovenox no need for steroids or remdesivir Discussed with the CLEAN ROOM OPERATOR for admitting team Dictation was produced using [employer] dictation software. please excuse any grammatical, word or spelling errors. Time with Patient: Less than 30
[2023-09-10] MEDS: TEMAZEPAM 7.5 MG CAP PO PRN (23:42)
--- NOTE | 2023-09-11 04:32 | P.PN ---
Subjective Progress Note Date: 09/10/23 This is a pleasant 78 years old female with past medical history of Heart Failure, Diabetes Mellitus, Hyperlipidemia, Hypertension, chronic kidney disease stage III. She presents because of respiratory symptoms mainly of dyspnea and coughing which feels itself phlegm coming up but that's is dry. Associated with left- sided chest pain that's been happening since yesterday started at 3 PM all her symptoms. Her pain mainly on the left side about 10/10 yesterday which make her worry and so she called EMS, she describes it as dull nonradiating currently better about 5/10 with no associated relieving or precipitating factors She's been feeling little dizzy and total headache although she states her hea dache is better now. She feels generalized weakness especially in her legs 3 at no asymmetry, no Tingling. She has chronic numbness in her toes and weakness related to her diabetes On admission she had low-grade fever of 99. She is saturating 95% on room air. Labs reviewed showed mild leukocytosis of 11.6, BMP liver enzymes and troponin were negative. Influenza A and type B, RSV, are and detected SARS (coronavirus) is positive Chest x-ray showing atelectasis with no acute process ProBNP is 975 EKG showed normal sinus rhythm at [address]-T changes 09/09/2023 And does not feel well today, she vomited this morning after she ate her breakfast. No more vomiting no abdominal pain. No diarrhea. She is also coughing a lot and she has some wheezing most likely due to fluid o verload seen on CAT scan of the chest. CT was negative for acute pulmonary embolism. She is also has coughing and she's been treated with Robitussin when necessary. No abdominal pain, no change in urine or bowel habits. No fever. Her vitals are stable She's mildly hypoxic WBC Shields frustrating to 9.3 Ejection fraction is 55-60% This was discussed with cardiology team recommended to discontinue IV fluids and resume her oral Lasix His continued and vitamin C, vitamin D and zinc. She says at home she takes prednisone 2.5 g 4 months and years for chronic fibromyalgia rheumatica. 09/10/2023 Patient is seen in follow-up this morning reports to not feeling well and continues to have cough with congestion and was noted to have low-grade temps. Infectious disease following patient is maintained on vitamin and zinc supplements chronically takes prednisone daily. Cardiology has evaluated the patient and has cleared the patient. Patient reports to feeling fatigued and overall unwell. Encourage the patient increase activity as tolerated sitting up more often out of the bed and encourage small frequent meals. No reported chest pain or palpitations although reports chest wall discomfort from coughing. Will monitor overnight with possible discharge planning in the next 24 hours. Review of systems CONSTITUTIONAL: Reports fever, reports malaise, no fatigue. HEENT: No recent visual problems or hearing problems. Denied any sore throat. CARDIOVASCULAR: No orthopnea, PND, no palpitations, no syncope. PULMONARY: No shortness of breath, reports cough and congestion, no hemoptysis. GASTROINTESTINAL: No diarrhea, no nausea, no vomiting, reports mild abdominal pain. Normoactive bowel sounds. Physical exam: GENERAL: The patient is alert and oriented x3, not in any acute distress. Morbidly Obese. Ill-appearing HEENT: Pupils are round and equally reacting to light. EOMI. No scleral icterus. No conjunctival pallor. Normocephalic, atraumatic. No pharyngeal erythema. No thyromegaly. CARDIOVASCULAR: S1 and S2 present. No murmurs, rubs, or gallops. -PULMONARY: Chest is clear to auscultation, mild bilateral expiratory wheezing , no crackles. Upper respiratory Congestion with cough noted on exam ABDOMEN: Soft, obese, nontender, nondistended, normoactive bowel sounds. No palpable organomegaly. MUSCULOSKELETAL: No joint swelling or deformity. EXTREMITIES: No cyanosis, clubbing, or pedal edema. NEUROLOGICAL: Gross neurological examination did not reveal any focal deficits. Diffusely weak SKIN: No rashes. no petechiae. Assessment: Chest pain, most likely musculoskeletal and related to her viral infection Covid infection with fever with no evidence of pneumonia or hypoxia Mild acute diastolic CHF on chronic disease with ejection fraction 55-60% Morbid Obesity with a BMI of 40.2 Chronic kidney disease stage III Chronic diarrhea twice per day for years Hypertension Hyperlipidemia Diabetic neuropathy GI prophylaxis DVT prophylaxis Full code Plan: Continue with home dose of prednisone 2.5 mg Continue inhaler along with vitamin C, D, zinc and Lovenox per infectious disease Patient was continued on gentle hydration and will resume oral Lasix and discont inue fluids Cardiology has evaluated the patient in need medication recommendations and has cleared the patient for discharge Patient reports to feeling fatigued and continues with chest congestion did have low-grade temps. Discussed with infectious disease on discharge planning and will monitor overnight and continue supportive care for ongoing symptoms Monitor for any further fevers Encourage the patient increase activity as tolerated and continue small frequent meals Prognosis is guarded Possible discharge planning in the next 24 hours The impression and plan of care has been dictated by Niecy Rm, Nurse Practitioner as directed. Dr. Shruthi MD I have performed a history and examination and MDM of this patient, discussed the same with the dictator, and agree with the dictator's assessment and plan as written ,documented as a scribe. Based on total visit time, I have performed more than 50% of the visit. Objective - Vital Signs Vital signs: Vital Signs Temp 99.4 F 09/10/23 07:50 Pulse 80 09/10/23 07:50 Resp 18 09/10/23 07:50 BP 165/75 09/10/23 07:50 Pulse Ox 93 L 09/10/23 07:50 FiO2 Intake & Output 09/09/23 09/10/23 09/10/23 18:59 06:59 18:59 Intake Total 354 236 Output Total 4 Balance 350 236 Intake: Oral 354 236 Output: Urine 4 Other: Voiding Method Toilet # Voids 2 - Labs CBC & Chem 7: 09/09/23 06:26 09/10/23 14:17 Labs: Abnormal Lab Results - Last 24 Hours (Table) 09/09/23 09/09/23 09/09/23 Range/Units 06:26 06:26 06:26 RBC 3.76 L (4.10-5.20) X 10*6/uL Hgb 11.3 L (12.0-15.0) g/dL Hct 33.9 L (37.2-46.3) % Monocytes # 1.22 H (0.20-1.00) X 10*3/uL Eosinophils # 0.03 L (0.04-0.35) X 10*3/uL Est GFR (CKD-EPI) 46 L (>=60) Glucose 167 H (70-110) mg/dL POC Glucose (mg/dL) (70-110) mg/dL Calcium 8.2 L (8.7-10.3) mg/dL C-Reactive Protein 6.80 H (0.00-0.80) mg/dL Procalcitonin 0.11 H (0.02-0.09) ng/mL 09/09/23 09/09/23 09/09/23 Range/Units 12:31 17:30 21:09 RBC (4.10-5.20) X 10*6/uL Hgb (12.0-15.0) g/dL Hct (37.2-46.3) % Monocytes # (0.20-1.00) X 10*3/uL Eosinophils # (0.04-0.35) X 10*3/uL Est GFR (CKD-EPI) (>=60) Glucose (70-110) mg/dL POC Glucose (mg/dL) 174 H 158 H 174 H (70-110) mg/dL Calcium (8.7-10.3) mg/dL C-Reactive Protein (0.00-0.80) mg/dL Procalcitonin (0.02-0.09) ng/mL
[2023-09-11] MEDS: PANTOPRAZOLE 40 MG TABLET PO SCH (09:25)
[2023-09-11] MEDS: ASCORBIC ACID 500 MG TAB PO SCH (09:25)
[2023-09-11] MEDS: ZINC SULFATE 220 MG CAP PO SCH (09:25)
[2023-09-11] MEDS: METOPROLOL SUCCINATE (ER) 50 MG TAB.ER.24H PO SCH (09:25)
[2023-09-11] MEDS: POTASSIUM CHLORIDE ER 20 MEQ TAB.ER PO SCH (09:25)
[2023-09-11] MEDS: FAMOTIDINE 20 MG/2 ML VIAL IV SCH (09:25)
[2023-09-11] MEDS: GABAPENTIN 300 MG CAP PO SCH (09:25)
[2023-09-11] MEDS: predniSONE 2.5 MG TAB PO SCH (09:26)
[2023-09-11] MEDS: CLOPIDOGREL 75 MG TAB PO SCH (09:26)
[2023-09-11] MEDS: hydrALAZINE HCL 25 MG TAB PO SCH ×3 (09:26→20:15)
[2023-09-11] MEDS: LINAGLIPTIN 5 MG TABLET PO SCH (09:26)
[2023-09-11] MEDS: ENOXAPARIN 40 MG/0.4 ML SYRINGE SQ SCH (09:26)
[2023-09-11] MEDS: CHOLECALCIFEROL 25 MCG (1000 IU) TABLET PO SCH (09:26)
[2023-09-11] MEDS: ISOSORBIDE MONONITRATE ER 60 MG TAB.ER.24H PO SCH (09:26)
[2023-09-11] MEDS: FLUTICASONE 50MCG/SPRAY NASAL 16GM EA NOSTRIL SCH ×2 (09:27→23:14)
[2023-09-11] MEDS: ALBUTEROL HFA INHALER INHALATION SCH ×4 (09:28→20:38)
[2023-09-11] MEDS: SERTRALINE 25 MG TAB PO SCH (09:30)
[2023-09-11] MEDS: FUROSEMIDE 40 MG TAB PO SCH (09:30)
[2023-09-11 12:38] LABS: Glucose,Whole Blood 146 mg/dL (70-110)
[2023-09-11] MEDS: Colestipol Hcl [Colestid] 1 GM Tablet PO SCH (12:58)
[2023-09-11] MEDS: guaiFENesin 600 MG TABLET.ER PO SCH ×2 (12:58→20:15)
--- NOTE | 2023-09-11 15:20 | P.PN ---
Subjective Progress Note Date: 09/11/23 Principal diagnosis: Reason for follow-up visit COVID-19 infection Patient is a 78-year-old female past medical his significant for diabetes mellitus hypertension hyperlipidemia and heart failure patient presenting to the ER for evaluation of generalized weakness and shortness of breath patient has been diagnosed with COVID-19 infection On today's evaluation that is 09/11/2023 the patient is afebrile for more than 24 hours now the patient is breathing comfortably on room air, the patient denies having any chest pain she did have some dry hacking cough no nausea no vomiting no abdominal pain or any diarrhea. The patient did have a creatinine 1.12 as of yesterday no CBC was done today Objective - Vital Signs Vital signs: Vital Signs Temp 98.4 F 09/11/23 08:00 Pulse 69 09/11/23 08:00 Resp 20 09/11/23 08:00 BP 162/78 09/11/23 08:00 Pulse Ox 96 09/11/23 08:00 FiO2 Intake & Output 09/10/23 09/11/23 09/11/23 18:59 06:59 18:59 Intake Total 236 Balance 236 Intake: Oral 236 Other: Voiding Method Toilet Toilet # Voids 2 2 - Exam GENERAL DESCRIPTION: Elderly female lying in bed in no distress RESPIRATORY SYSTEM: Unlabored breathing , decreased breath sounds at bases HEART: S1 S2 regular rate and rhythm ,no loud murmurs ABDOMEN: Soft , no tenderness EXTREMITIES: No edema feet - Labs CBC & Chem 7: 09/09/23 06:26 09/10/23 14:17 Labs: Abnormal Lab Results - Last 24 Hours (Table) 09/10/23 09/10/23 09/10/23 Range/Units 12:05 14:17 17:05 BUN 18 H (7-17) mg/dL Creatinine 1.12 H (0.52-1.04) mg/dL Glucose 148 H (74-99) mg/dL POC Glucose (mg/dL) 141 H 178 H (70-110) mg/dL Calcium 8.1 L (8.4-10.2) mg/dL 09/10/23 Range/Units 20:21 BUN (7-17) mg/dL Creatinine (0.52-1.04) mg/dL Glucose (74-99) mg/dL POC Glucose (mg/dL) 122 H (70-110) mg/dL Calcium (8.4-10.2) mg/dL Assessment and Plan (1) COVID-19 Current Visit: Yes Status: Acute Code(s): U07.1 - COVID-19 SNOMED Code(s): 689299071 (2) Pyrexia Current Visit: Yes Status: Acute Code(s): R50.9 - FEVER, UNSPECIFIED SNOMED Code(s): 437504085 (3) Weakness Current Visit: Yes Status: Acute Code(s): R53.1 - WEAKNESS SNOMED Code(s): 19142170 Plan: 1patient presented hospital with rigors and chills URI symptoms along with shortness of breath more likely related to the acute COVID-19 infection patient however is not hypoxic or need for supplemental oxygen treatment will be mostly supportive 2patient did have a mildly elevated CRP and procalcitonin only 0.11, the patien t did have a CT angiogram of the chest that was negative for PE and did not show any evidence of groundglass appearance or consolidation. 3the patient have resolution of her fever she is breathing comfortably on room air patient did have mild wheezing may benefit from Medrol Dosepak on discharge continue with zinc and ascorbic acid there is no need for antiviral or antibiotics on discharge Dictation was produced using [employer] dictation software. please excuse any grammatical, word or spelling errors. Time with Patient: Less than 30
[2023-09-11 17:40] LABS: Glucose,Whole Blood 212 mg/dL (70-110)
[2023-09-11 20:23] LABS: Glucose,Whole Blood 182 mg/dL (70-110)
[2023-09-11 20:23] LABS: Glucose,Whole Blood 121 mg/dL (70-110)
[2023-09-11] MEDS: TEMAZEPAM 7.5 MG CAP PO PRN (23:12)
[2023-09-12 06:10] LABS: Glucose,Whole Blood 129 mg/dL (70-110)
--- NOTE | 2023-09-12 06:35 | P.PN ---
Subjective Progress Note Date: 09/11/23 This is a pleasant 78 years old female with past medical history of Heart Failure, Diabetes Mellitus, Hyperlipidemia, Hypertension, chronic kidney disease stage III. She presents because of respiratory symptoms mainly of dyspnea and coughing which feels itself phlegm coming up but that's is dry. Associated with left- sided chest pain that's been happening since yesterday started at 3 PM all her symptoms. Her pain mainly on the left side about 10/10 yesterday which make her worry and so she called EMS, she describes it as dull nonradiating currently better about 5/10 with no associated relieving or precipitating factors She's been feeling little dizzy and total headache although she states her hea dache is better now. She feels generalized weakness especially in her legs 3 at no asymmetry, no Tingling. She has chronic numbness in her toes and weakness related to her diabetes On admission she had low-grade fever of 99. She is saturating 95% on room air. Labs reviewed showed mild leukocytosis of 11.6, BMP liver enzymes and troponin were negative. Influenza A and type B, RSV, are and detected SARS (coronavirus) is positive Chest x-ray showing atelectasis with no acute process ProBNP is 975 EKG showed normal sinus rhythm at [address]-T changes 09/09/2023 And does not feel well today, she vomited this morning after she ate her breakfast. No more vomiting no abdominal pain. No diarrhea. She is also coughing a lot and she has some wheezing most likely due to fluid o verload seen on CAT scan of the chest. CT was negative for acute pulmonary embolism. She is also has coughing and she's been treated with Robitussin when necessary. No abdominal pain, no change in urine or bowel habits. No fever. Her vitals are stable She's mildly hypoxic WBC Shields frustrating to 9.3 Ejection fraction is 55-60% This was discussed with cardiology team recommended to discontinue IV fluids and resume her oral Lasix His continued and vitamin C, vitamin D and zinc. She says at home she takes prednisone 2.5 g 4 months and years for chronic fibromyalgia rheumatica. 09/10/2023 Patient is seen in follow-up this morning reports to not feeling well and continues to have cough with congestion and was noted to have low-grade temps. Infectious disease following patient is maintained on vitamin and zinc supplements chronically takes prednisone daily. Cardiology has evaluated the patient and has cleared the patient. Patient reports to feeling fatigued and overall unwell. Encourage the patient increase activity as tolerated sitting up more often out of the bed and encourage small frequent meals. No reported chest pain or palpitations although reports chest wall discomfort from coughing. Will monitor overnight with possible discharge planning in the next 24 hours. 09/11/2023 Patient is seen and evaluated follow-up this morning and continues to feel congested and having cough. Will add mucinex and encouraged getting up out of the bed. Patient is afebrile and will continue on vitamin and zinc supplements. Will continue medrol dose pack on discharge per ID recommendations. Encouraged increased activity and oral intake. Monitor overnight with discharge in 24 hour. Review of systems CONSTITUTIONAL: Reports fever, reports malaise, no fatigue. HEENT: No recent visual problems or hearing problems. Denied any sore throat. CARDIOVASCULAR: No orthopnea, PND, no palpitations, no syncope. PULMONARY: No shortness of breath, reports cough and congestion, no hemoptysis. GASTROINTESTINAL: No diarrhea, no nausea, no vomiting, reports mild abdominal pain. Normoactive bowel sounds. Physical exam: GENERAL: The patient is alert and oriented x3, not in any acute distress. Morbidly Obese. Ill-appearing HEENT: Pupils are round and equally reacting to light. EOMI. No scleral icterus. No conjunctival pallor. Normocephalic, atraumatic. No pharyngeal erythema. No thyromegaly. CARDIOVASCULAR: S1 and S2 present. No murmurs, rubs, or gallops. -PULMONARY: Chest is clear to auscultation, mild bilateral expiratory wheezing , no crackles. Upper respiratory Congestion with cough noted on exam ABDOMEN: Soft, obese, nontender, nondistended, normoactive bowel sounds. No palpable organomegaly. MUSCULOSKELETAL: No joint swelling or deformity. EXTREMITIES: No cyanosis, clubbing, or pedal edema. NEUROLOGICAL: Gross neurological examination did not reveal any focal deficits. Diffusely weak SKIN: No rashes. no petechiae. Assessment: Chest pain, most likely musculoskeletal and related to her viral infection Covid infection with fever with no evidence of pneumonia or hypoxia Mild acute diastolic CHF on chronic disease with ejection fraction 55-60% Morbid Obesity with a BMI of 40.2 Chronic kidney disease stage III Chronic diarrhea twice per day for years Hypertension Hyperlipidemia Diabetic neuropathy GI prophylaxis DVT prophylaxis Full code Plan: Continue with home dose of prednisone 2.5 mg, will dc on a medrol dose pack Continue inhaler along with vitamin C, D, zinc and Lovenox per infectious disease Cardiology has evaluated the patient in need medication recommendations and has cleared the patient for discharge Patient reports to feeling fatigued and continues with chest congestion did have low-grade temps. Discussed with infectious disease on discharge planning and will monitor overnight and have added mucinex as patient reports she is having cough and congestion and unable to expectorate. Continue supportive care for ongoing symptoms Monitor for any further fevers. Patient has been afebrile overnight Encourage the patient increase activity as tolerated and continue small frequent meals Prognosis is guarded Probable discharge planning in the next 24 hours The impression and plan of care has been dictated by Niecy Rm, Nurse Practitioner as directed. Dr. Shruthi MD I have performed a history and examination and MDM of this patient, discussed the same with the dictator, and agree with the dictator's assessment and plan as written ,documented as a scribe. Based on total visit time, I have performed more than 50% of the visit. Objective - Vital Signs Vital signs: Vital Signs Temp 98.2 F 09/12/23 02:00 Pulse 72 09/12/23 02:00 Resp 18 09/12/23 02:00 BP 157/65 09/12/23 02:00 Pulse Ox 95 09/12/23 02:00 FiO2 Intake & Output 09/11/23 09/11/23 09/12/23 06:59 18:59 06:59 Intake Total 236 Balance 236 Intake: Oral 236 Other: Voiding Method Toilet Toilet Toilet # Voids 2 2 - Labs CBC & Chem 7: 09/09/23 06:26 09/10/23 14:17 Labs: Abnormal Lab Results - Last 24 Hours (Table) 09/11/23 09/11/23 09/11/23 Range/Units 06:27 12:26 17:33 POC Glucose (mg/dL) 121 H 146 H 212 H (70-110) mg/dL 09/11/23 09/12/23 Range/Units 20:22 06:09 POC Glucose (mg/dL) 182 H 129 H (70-110) mg/dL
[2023-09-12] MEDS: ALBUTEROL HFA INHALER INHALATION SCH ×4 (09:15→22:13)
[2023-09-12] MEDS: ENOXAPARIN 40 MG/0.4 ML SYRINGE SQ SCH (10:12)
[2023-09-12] MEDS: CLOPIDOGREL 75 MG TAB PO SCH (10:13)
[2023-09-12] MEDS: predniSONE 2.5 MG TAB PO SCH (10:13)
[2023-09-12] MEDS: CHOLECALCIFEROL 25 MCG (1000 IU) TABLET PO SCH (10:13)
[2023-09-12] MEDS: POTASSIUM CHLORIDE ER 20 MEQ TAB.ER PO SCH (10:13)
[2023-09-12] MEDS: FUROSEMIDE 40 MG TAB PO SCH (10:13)
[2023-09-12] MEDS: PANTOPRAZOLE 40 MG TABLET PO SCH (10:14)
[2023-09-12] MEDS: ZINC SULFATE 220 MG CAP PO SCH (10:14)
[2023-09-12] MEDS: FAMOTIDINE 20 MG/2 ML VIAL IV SCH (10:14)
[2023-09-12] MEDS: FLUTICASONE 50MCG/SPRAY NASAL 16GM EA NOSTRIL SCH ×2 (10:14→22:31)
[2023-09-12] MEDS: LINAGLIPTIN 5 MG TABLET PO SCH (10:14)
[2023-09-12] MEDS: ISOSORBIDE MONONITRATE ER 60 MG TAB.ER.24H PO SCH (10:14)
[2023-09-12] MEDS: ASCORBIC ACID 500 MG TAB PO SCH (10:14)
[2023-09-12] MEDS: METOPROLOL SUCCINATE (ER) 50 MG TAB.ER.24H PO SCH (10:15)
[2023-09-12] MEDS: SERTRALINE 25 MG TAB PO SCH (10:15)
[2023-09-12] MEDS: guaiFENesin 600 MG TABLET.ER PO SCH (10:15)
[2023-09-12] MEDS: GABAPENTIN 300 MG CAP PO SCH (10:15)
[2023-09-12] MEDS: hydrALAZINE HCL 25 MG TAB PO SCH ×3 (10:15→22:30)
[2023-09-12] MEDS: Colestipol Hcl [Colestid] 1 GM Tablet PO SCH (10:16)
[2023-09-12] MEDS: ACETAMINOPHEN TAB 325 MG TAB PO PRN (10:20)
[2023-09-12 12:08] LABS: Glucose,Whole Blood 149 mg/dL (70-110)
[2023-09-12] MEDS ORDERED: METOCLOPRAMIDE 5 MG/ML 2 ML VIAL IVP PRN (12:26)
--- NOTE | 2023-09-12 13:51 | XR ---
EXAMINATION TYPE: XR abdomen acute w cxr DATE OF EXAM: 09/12/2023 COMPARISON: NONE HISTORY: Pain TECHNIQUE: Single view of the chest and 2 views of the abdomen are submitted. FINDINGS: Single view of the chest fails demonstrate evidence for acute pulmonary disease. There is no evidence for pneumoperitoneum. The bowel gas pattern is unremarkable as there is air throughout nondilated small and large bowel. No sizeable air fluid levels.No mass effects are seen. No unusual calcifications. IMPRESSION: 1. Unremarkable study.
--- NOTE | 2023-09-12 14:27 | P.PN ---
Subjective Progress Note Date: 09/12/23 This is a pleasant 78 years old female with past medical history of Heart Failure, Diabetes Mellitus, Hyperlipidemia, Hypertension, chronic kidney disease stage III. She presents because of respiratory symptoms mainly of dyspnea and coughing which feels itself phlegm coming up but that's is dry. Associated with left- sided chest pain that's been happening since yesterday started at 3 PM all her symptoms. Her pain mainly on the left side about 10/10 yesterday which make her worry and so she called EMS, she describes it as dull nonradiating currently better about 5/10 with no associated relieving or precipitating factors She's been feeling little dizzy and total headache although she states her hea dache is better now. She feels generalized weakness especially in her legs 3 at no asymmetry, no Tingling. She has chronic numbness in her toes and weakness related to her diabetes On admission she had low-grade fever of 99. She is saturating 95% on room air. Labs reviewed showed mild leukocytosis of 11.6, BMP liver enzymes and troponin were negative. Influenza A and type B, RSV, are and detected SARS (coronavirus) is positive Chest x-ray showing atelectasis with no acute process ProBNP is 975 EKG showed normal sinus rhythm at [address]-T changes 09/09/2023 And does not feel well today, she vomited this morning after she ate her breakfast. No more vomiting no abdominal pain. No diarrhea. She is also coughing a lot and she has some wheezing most likely due to fluid o verload seen on CAT scan of the chest. CT was negative for acute pulmonary embolism. She is also has coughing and she's been treated with Robitussin when necessary. No abdominal pain, no change in urine or bowel habits. No fever. Her vitals are stable She's mildly hypoxic WBC Shields frustrating to 9.3 Ejection fraction is 55-60% This was discussed with cardiology team recommended to discontinue IV fluids and resume her oral Lasix His continued and vitamin C, vitamin D and zinc. She says at home she takes prednisone 2.5 g 4 months and years for chronic fibromyalgia rheumatica. 09/10/2023 Patient is seen in follow-up this morning reports to not feeling well and continues to have cough with congestion and was noted to have low-grade temps. Infectious disease following patient is maintained on vitamin and zinc supplements chronically takes prednisone daily. Cardiology has evaluated the patient and has cleared the patient. Patient reports to feeling fatigued and overall unwell. Encourage the patient increase activity as tolerated sitting up more often out of the bed and encourage small frequent meals. No reported chest pain or palpitations although reports chest wall discomfort from coughing. Will monitor overnight with possible discharge planning in the next 24 hours. 09/11/2023 Patient is seen and evaluated follow-up this morning and continues to feel congested and having cough. Will add mucinex and encouraged getting up out of the bed. Patient is afebrile and will continue on vitamin and zinc supplements. Will continue medrol dose pack on discharge per ID recommendations. Encouraged increased activity and oral intake. Monitor overnight with discharge in 24 hour. 09/12/2023 Patient is seen in follow-up this morning again in the bed and reports she has been getting up out of the bed although each time patient is examined she is sleeping and in the bed. Encouraged increased activity is tolerating and getting up out of the bed more often. Patient reports she feels unsafe going home as her daughter is now ill and having vomiting and she reports she has had a couple episodes of vomiting which has now resolved and refused Reglan she has chronic diarrhea and cannot take Zofran due to ALLERGY. Will obtain an abdominal x-ray for evaluation. Patient is afebrile continues to report cough with chest congestion and was started on Mucinex although not sure if this was causing her stomach upset will hold Mucinex for now. Attempted to have PT/OT therapy reevaluate as patient reports a generalized weakness and reports she is able to get up and has a walker and does not need to be seen and evaluated by physical therapy. Will consult social work as patient is agreeable for Homecare. Review of systems CONSTITUTIONAL: Reports fever, reports malaise, no fatigue. HEENT: No recent visual problems or hearing problems. Denied any sore throat. CARDIOVASCULAR: No orthopnea, PND, no palpitations, no syncope. PULMONARY: No shortness of breath, reports cough and congestion, no hemoptysis. GASTROINTESTINAL: No diarrhea, reports of nausea, reports 2 episodes of vomiting now resolved, reports mild abdominal pain. Normoactive bowel sounds. Physical exam: GENERAL: The patient is alert and oriented x3, not in any acute distress. Morbidly Obese. Ill-appearing HEENT: Pupils are round and equally reacting to light. EOMI. No scleral icterus. No conjunctival pallor. Normocephalic, atraumatic. No pharyngeal erythema. No thyromegaly. CARDIOVASCULAR: S1 and S2 present. No murmurs, rubs, or gallops. PULMONARY: Chest is clear to auscultation, mild bilateral expiratory wheezing , no crackles. Upper respiratory Congestion with cough noted on exam ABDOMEN: Soft, obese, nontender, nondistended, normoactive bowel sounds. No palpable organomegaly. MUSCULOSKELETAL: No joint swelling or deformity. EXTREMITIES: No cyanosis, clubbing, or pedal edema. NEUROLOGICAL: Gross neurological examination did not reveal any focal deficits. Diffusely weak SKIN: No rashes. no petechiae. Assessment: Chest pain, most likely musculoskeletal and related to her viral infection Covid infection with fever with no evidence of pneumonia or hypoxia Mild acute diastolic CHF on chronic disease with ejection fraction 55-60% Morbid Obesity with a BMI of 40.2 Chronic kidney disease stage III Chronic diarrhea twice per day for years Hypertension Hyperlipidemia Diabetic neuropathy GI prophylaxis DVT prophylaxis Full code Plan: Continue with home dose of prednisone 2.5 mg, will dc on a medrol dose pack per ID recommendations Continue inhaler along with vitamin C, D, zinc and Lovenox per infectious disease Cardiology has evaluated the patient in need medication recommendations and has cleared the patient for discharge Patient reports to feeling fatigued and continues with chest congestion did have low-grade temps. Discussed with infectious disease on discharge planning and will monitor overnight and have added mucinex as patient reports she is having c ough and congestion and unable to expectorate. Continue supportive care for ongoing symptoms . Patient reports an episode of vomiting this morning and unsure if it was the Mucinex so will discontinue and monitor and attempted to give Reglan although patient reports she has chronic diarrhea and will not take the Reglan and also has an ALLERGY to Zofran. Patient reports her nausea with vomiting has improved. We'll monitor overnight with discharge planning in 24 hours. Social work consulted to possibly arrange for home care as patient reports her daughter was going to stay with her to help take care of her although she is now vomiting and sick so cannot come stay with her and patient does not feel comfortable going home alone. Asked physical therapy to reevaluate the patient and patient refused stating she can walk and has a walker and cane at home. Chest x-ray/Abdominal x-ray obtained which showed no acute process. Monitor for any further fevers. Patient has been afebrile overnight Encourage the patient increase activity as tolerated and continue small frequent meals Prognosis is guarded Probable discharge planning in the next 24 hours The impression and plan of care has been dictated by Niecy Rm, Nurse Practitioner as directed. Dr. Shruthi MD I have performed a history and examination and MDM of this patient, discussed the same with the dictator, and agree with the dictator's assessment and plan as written ,documented as a scribe. Based on total visit time, I have performed more than 50% of the visit. Objective - Vital Signs Vital signs: Vital Signs Temp 98.4 F 09/12/23 14:00 Pulse 72 09/12/23 14:00 Resp 16 09/12/23 14:00 BP 158/76 09/12/23 14:00 Pulse Ox 96 09/12/23 14:00 FiO2 Intake & Output 09/11/23 09/12/23 09/12/23 18:59 06:59 18:59 Intake Total 236 Balance 236 Intake: Oral 236 Other: Voiding Method Toilet Toilet # Voids 2 - Labs CBC & Chem 7: 09/09/23 06:26 09/10/23 14:17 Labs: Abnormal Lab Results - Last 24 Hours (Table) 09/11/23 09/11/23 09/11/23 Range/Units 06:27 17:33 20:22 POC Glucose (mg/dL) 121 H 212 H 182 H (70-110) mg/dL 09/12/23 09/12/23 Range/Units 06:09 12:06 POC Glucose (mg/dL) 129 H 149 H (70-110) mg/dL
[2023-09-12 17:06] LABS: Glucose,Whole Blood 201 mg/dL (70-110)
[2023-09-12 21:05] LABS: Glucose,Whole Blood 168 mg/dL (70-110)
[2023-09-12] MEDS: TEMAZEPAM 7.5 MG CAP PO PRN (22:30)
[2023-09-13 06:42] LABS: Glucose,Whole Blood 126 mg/dL (70-110)
[2023-09-13] MEDS: guaiFENesin-DM 100-10MG/5ML 10 ML CUP PO SCH ×2 (06:43→13:23)
[2023-09-13] MEDS: hydrALAZINE HCL 25 MG TAB PO SCH ×2 (09:06→15:58)
[2023-09-13] MEDS: predniSONE 2.5 MG TAB PO SCH (09:06)
[2023-09-13] MEDS: FUROSEMIDE 40 MG TAB PO SCH (09:06)
[2023-09-13] MEDS: LINAGLIPTIN 5 MG TABLET PO SCH (09:06)
[2023-09-13] MEDS: CHOLECALCIFEROL 25 MCG (1000 IU) TABLET PO SCH (09:06)
[2023-09-13] MEDS: GABAPENTIN 300 MG CAP PO SCH (09:06)
[2023-09-13] MEDS: POTASSIUM CHLORIDE ER 20 MEQ TAB.ER PO SCH (09:06)
[2023-09-13] MEDS: ENOXAPARIN 40 MG/0.4 ML SYRINGE SQ SCH (09:06)
[2023-09-13] MEDS: ISOSORBIDE MONONITRATE ER 60 MG TAB.ER.24H PO SCH (09:06)
[2023-09-13] MEDS: CLOPIDOGREL 75 MG TAB PO SCH (09:06)
[2023-09-13] MEDS: METOPROLOL SUCCINATE (ER) 50 MG TAB.ER.24H PO SCH (09:06)
[2023-09-13] MEDS: ZINC SULFATE 220 MG CAP PO SCH (09:06)
[2023-09-13] MEDS: ASCORBIC ACID 500 MG TAB PO SCH (09:06)
[2023-09-13] MEDS: FLUTICASONE 50MCG/SPRAY NASAL 16GM EA NOSTRIL SCH ×2 (09:07)
[2023-09-13] MEDS: FAMOTIDINE 20 MG/2 ML VIAL IV SCH (09:07)
[2023-09-13] MEDS: Colestipol Hcl [Colestid] 1 GM Tablet PO SCH (09:08)
[2023-09-13] MEDS: PANTOPRAZOLE 40 MG TABLET PO SCH (09:15)
[2023-09-13] MEDS: SERTRALINE 25 MG TAB PO SCH (09:15)
[2023-09-13] MEDS: ALBUTEROL HFA INHALER INHALATION SCH ×3 (09:22→16:22)
[2023-09-13 11:44] LABS: Glucose,Whole Blood 180 mg/dL (70-110)
[2023-09-13 14:18] VITALS: BP 148/72; PULSE 83; RESP 14; TEMP 98.4
== END 2023-09-13 16:48 | disposition home health service (06) | DRG 177 ==
LOC: EC 00:33 → 6NMEDSUR 05:37 → OBSVTOIN 09-09 12:05
PROVIDERS: ADMIT Hospitalist; ATTEND Hospitalist
DX: U07.1 COVID-19 (principal); I50.33 Acute on chronic diastolic (congestive) heart failure; I13.0 Hypertensive heart and chronic kidney disease with heart failure and stage 1 through stage 4 chronic kidney disease, or unspecified chronic kidney disease; Z68.41 Body mass index [BMI] 40.0-44.9, adult; N18.30 Chronic kidney disease, stage 3 unspecified; K52.9 Noninfective gastroenteritis and colitis, unspecified; E78.5 Hyperlipidemia, unspecified; I1A.0 Resistant hypertension; Z20.822 Contact with and (suspected) exposure to COVID-19; E66.01 Morbid (severe) obesity due to excess calories; E11.42 Type 2 diabetes mellitus with diabetic polyneuropathy; E11.22 Type 2 diabetes mellitus with diabetic chronic kidney disease; E11.649 Type 2 diabetes mellitus with hypoglycemia without coma; Z90.49 Acquired absence of other specified parts of digestive tract; Z90.710 Acquired absence of both cervix and uterus; Z87.891 Personal history of nicotine dependence; Z88.2 Allergy status to sulfonamides; Z88.8 Allergy status to other drugs, medicaments and biological substances
CPT/HCPCS: 36415; 71046; 71275; 74022; 80048; 80053; 83605; 83880; 84145; 84484; 85025; 85379; 85610; 85730; 86140; 87636; 93005; 93306; 94640; 94760; 96361; 96374; 99285

== ENCOUNTER 2023-10-21 09:38 | Observation (INO) | payer MEDICARE, BC ==
[2023-10-21] MEDS ORDERED: IPRATROPIUM-ALBUTEROL 3 ML NEB INHALATION STA (09:51)
[2023-10-21] MEDS ORDERED: methylPREDNISolone SOD SUCCI 125 MG/2 ML VIAL IV STA (09:51)
[2023-10-21] MEDS ORDERED: SODIUM CHLORIDE 0.9% 1,000 ML IV STA (09:51)
[2023-10-21] MEDS ORDERED: ACETAMINOPHEN TAB 500 MG TAB PO STA (09:52)
--- NOTE | 2023-10-21 09:53 | ED ---
General Adult HPI - General Chief complaint: Shortness of Breath Stated complaint: SOB Time Seen by Provider: 10/21/23 09:45 Source: patient, RN notes reviewed Mode of arrival: ambulatory Limitations: no limitations - History of Present Illness Initial comments: Patient is a pleasant 78-year-old female present to the emergency department with cough and dyspnea. Symptoms have been present for over a month. Patient was diagnosed with COVID-19 infection at that time. No history of diagnosed COPD however patient is a former smoker with 20-year history. Patient does have cough and now sputum is turning green. Patient is unclear if she has had fevers at home. Patient does feel somewhat achy at times. - Related Data Home Medications Medication Instructions Recorded Confirmed Clopidogrel [Plavix] 75 mg PO DAILY 11/18/21 09/08/23 Evolocumab [Repatha Sureclick] 140 mg SQ Q14D 11/18/21 09/08/23 Isosorbide Mononitrate ER [Imdur] 60 mg PO DAILY 11/18/21 09/08/23 Metoprolol Succinate (ER) [Toprol 50 mg PO DAILY 11/18/21 09/08/23 XL] Pantoprazole [Protonix] 40 mg PO DAILY 11/18/21 09/08/23 predniSONE 2.5 mg PO DAILY 11/18/21 09/08/23 sitaGLIPtin [Januvia] 100 mg PO DAILY 11/18/21 09/08/23 Albuterol Inhaler [Ventolin Hfa 2 puff INHALATION RT-QID PRN 09/08/23 09/08/23 Inhaler] Colestipol HCl [Colestid] 1 gm PO DAILY 09/08/23 09/08/23 Gabapentin [Neurontin] 300 mg PO DAILY 09/08/23 09/08/23 Sertraline [Zoloft] 25 mg PO DAILY 09/08/23 09/08/23 hydrALAZINE HCL [Apresoline] 25 mg PO TID 09/08/23 09/08/23 Previous Rx's Medication Instructions Recorded Acetaminophen Tab [Tylenol] 650 mg PO Q6HR PRN tab 09/13/23 Ascorbic Acid [Vitamin C] 1,000 mg PO DAILY #30 tab 09/13/23 Cholecalciferol [Vitamin D3 (25 50 mcg PO DAILY #30 tab 12/21/23 Mcg = 1000 Iu)] Furosemide [Lasix] 40 mg PO DAILY #30 tab 09/13/23 Potassium Chloride ER [K-Dur 20] 20 meq PO DAILY #30 tab 09/13/23 Zinc Sulfate [Orazinc] 220 mg PO DAILY 15 Days #15 cap 09/13/23 guaiFENesin-DM 100-10MG/5ML 10 ml PO Q6HR PRN #240 ml 09/13/23 [Robitussin DM] Allergies Allergy/AdvReac Type Severity Reaction Status Date / Time sulfamethoxazole Allergy Unknown Verified 11/18/21 18:17 [From Bactrim] trimethoprim [From Bactrim] Allergy Unknown Verified 11/18/21 18:17 atorvastatin [From Lipitor] AdvReac Rapid Verified 11/18/21 18:10 Heart Rate/Increased BP duloxetine [From Cymbalta] AdvReac Cough Verified 11/18/21 18:17 ondansetron [From Zofran] AdvReac agitation Verified 11/18/21 18:17 pravastatin AdvReac Rapid Verified 11/18/21 18:17 Heart Rate [id number]-[id number] Reductase AdvReac Rapid Verified 11/18/21 18:17 Inhibitor Heart Rate Review of Systems ROS Statement: Those systems with pertinent positive or pertinent negative responses have been documented in the HPI. ROS Other: All systems not noted in ROS Statement are negative. Constitutional: Reports: as per HPI Eyes: Denies: eye pain Respiratory: Reports: as per HPI, cough, dyspnea Cardiovascular: Denies: chest pain Endocrine: Reports: fatigue Gastrointestinal: Denies: abdominal pain Musculoskeletal: Denies: back pain Past Medical History Past Medical History: Heart Failure, Diabetes Mellitus, Hyperlipidemia, Hypertension History of Any Multi-Drug Resistant Organisms: None Reported Past Surgical History: Appendectomy, Breast Surgery, Cholecystectomy, Hysterectomy, Orthopedic Surgery Additional Past Surgical History / Comment(s): cardiac stents Past Psychological History: No Psychological Hx Reported Smoking Status: Former smoker Past Alcohol Use History: None Reported Past Drug Use History: None Reported General Exam Limitations: no limitations General appearance: alert, in no apparent distress Head exam: Present: normocephalic Eye exam: Present: normal appearance Neck exam: Present: normal inspection Respiratory exam: Present: wheezes (Forced expiratory wheeze). Absent: resp iratory distress Cardiovascular Exam: Present: regular rate, normal rhythm GI/Abdominal exam: Present: soft. Absent: tenderness Extremities exam: Present: normal inspection. Absent: pedal edema, calf tenderness Neurological exam: Present: alert Psychiatric exam: Present: normal affect, normal mood Skin exam: Present: normal color Course Vital Signs 10/21/23 10/21/23 10/21/23 09:40 09:46 10:06 Temperature 99.0 F Pulse Rate 79 74 Respiratory 19 24 Rate Blood Pressure 144/60 O2 Sat by Pulse 94 L Oximetry 10/21/23 10:16 Temperature Pulse Rate 68 Respiratory Rate Blood Pressure O2 Sat by Pulse Oximetry EKG Findings - EKG Results: EKG: interpreted by ERMD, sinus rhythm, normal axis, normal QRS, normal ST/T Medical Decision Making - Medical Decision Making Was pt. sent in by a medical professional or institution (Dr. PA, SENIOR ERP CONSULTANT, urgent care, hospital, or [facility]...) When possible be specific @ -No Did you speak to anyone other than the patient for history (EMS, parent, family, police, friend...)? What history was obtained from this source @ -Family is present and helps provide additional history as far as prolonged symptoms Did you review nursing and triage notes (agree or disagree)? Why? @ -I reviewed and agree with nursing and triage notes Were old charts reviewed (outside hosp., previous admission, EMS record, old EKG, old radiological studies, urgent care reports/EKG's, [facility] records)? Report findings @ -No old charts were reviewed Differential Diagnosis (chest pain, altered mental status, abdominal pain women, abdominal pain men, vaginal bleeding, weakness, fever, dyspnea, syncope, headache, dizziness, GI bleed, back pain, seizure, CVA, palpatations, mental health, musculoskeletal)? @ -Differential Dyspnea: Coronary syndrome, arrhythmia, tamponade, asthma, COPD, pulmonary embolism, pneumonia, pneumothorax, pulmonary effusion, anaphylaxis, diabetic ketoacidosis, flailed chest, pulmonary contusion, diaphragmatic rupture, anemia, neuromuscular, this is not meant to be an all-inclusive list. EKG interpreted by me (3pts min.). @ -As above X-rays interpreted by me (1pt min.). @ -N chest x-ray shows no acute process ne CT interpreted by me (1pt min.). @ -None done U/S interpreted by me (1pt. min.). @ -None done What testing was considered but not performed or refused? (CT, X-rays, U/S, labs)? Why? @ -None What meds were considered but not given or refused? Why? @ -None Did you discuss the management of the patient with other professionals (professionals i.e. , PA, SENIOR ERP CONSULTANT, lab, RT, psych nurse, public health social worker, greens planter, teacher, chief sales officer, shoe parts caser)? Give summary @ -Case was discussed with Dr. Bob, who will admit covering hospital call Was smoking cessation discussed for >3mins.? @ -No Was critical care preformed (if so, how long)? @ -No Were there social determinants of health that impacted care today? How? (Homelessness, low income, unemployed, alcoholism, drug addiction, transportation, low edu. Level, literacy, decrease access to med. care, prison, rehab)? @ -No Was there de-escalation of care discussed even if they declined (Discuss DNR or withdrawal of care, Hospice)? DNR status @ -No What co-morbidities impacted this encounter? (DM, HTN, Smoking, COPD, CAD, Cancer, CVA, ARF, Chemo, Hep., AIDS, mental health diagnosis, sleep apnea, morbid obesity)? @ -None Was patient admitted / discharged? Hospital course, mention meds given and route, prescriptions, significant lab abnormalities, going to OR and other pertinent info. @ -Patient reevaluated and does feel somewhat better. Family is not comfortable with discharge of patient. Patient is agreeable to stay. Patient has RSV and probable COPD. Patient has not formally been diagnosed with COPD previously. Case was discussed with admitting physician who will admit for obs ervation and further treatment. Undiagnosed new problem with uncertain prognosis? @ -No Drug Therapy requiring intensive monitoring for toxicity (Heparin, Nitro, Insulin, Cardizem)? @ -No Were any procedures done? @ -No Diagnosis/symptom? @ -RSV infection, COPD Acute, or Chronic, or Acute on Chronic? @ -Acute, acute Uncomplicated (without systemic symptoms) or Complicated (systemic symptoms)? @ -Default Side effects of treatment? @ -No Exacerbation, Progression, or Severe Exacerbation? @ -No Poses a threat to life or bodily function? How? (Chest pain, USA, DC, pneumonia, PE, COPD, DKA, ARF, appy, cholecystitis, CVA, Diverticulitis, Homicidal, Suicidal, threat to staff... and all critical care pts) @ -No - Lab Data Result diagrams: 10/21/23 10:23 10/21/23 11:28 Lab Results 10/21/23 10/21/23 10/21/23 Range/Units 10:23 10:23 10:23 WBC 9.1 (3.8-10.6) k/uL RBC 3.85 (3.80-5.40) m/uL Hgb 12.1 (11.4-16.0) gm/dL Hct 34.7 (34.0-46.0) % MCV 90.2 (80.0-100.0) fL MCH 31.5 (25.0-35.0) pg MCHC 34.9 (31.0-37.0) g/dL RDW 13.9 (11.5-15.5) % Plt Count 167 (150-450) k/uL MPV 7.6 Neutrophils % 66 % Lymphocytes % 20 % Monocytes % 7 % Eosinophils % 3 % Basophils % 1 % Neutrophils # 6.0 (1.3-7.7) k/uL Lymphocytes # 1.8 (1.0-4.8) k/uL Monocytes # 0.7 (0-1.0) k/uL Eosinophils # 0.3 (0-0.7) k/uL Basophils # 0.1 (0-0.2) k/uL PT 10.7 (10.0-12.5) sec INR 1.0 (<1.2) APTT 22.1 (22.0-30.0) sec Sodium (137-145) mmol/L Potassium (3.5-5.1) mmol/L Chloride (98-107) mmol/L Carbon Dioxide (22-30) mmol/L Anion Gap mmol/L BUN (7-17) mg/dL Creatinine (0.52-1.04) mg/dL Est GFR (CKD-EPI)AfAm (>60 ml/min/1.73 sqM) Est GFR (CKD-EPI)NonAf (>60 ml/min/1.73 sqM) Glucose (74-99) mg/dL Plasma Lactic Acid Abhijeet 0.9 (0.7-2.0) mmol/L Calcium (8.4-10.2) mg/dL Magnesium (1.6-2.3) mg/dL Total Bilirubin (0.2-1.3) mg/dL AST (14-36) U/L ALT (4-34) U/L Alkaline Phosphatase (38-126) U/L Total Protein (6.3-8.2) g/dL Albumin (3.5-5.0) g/dL Influenza Type A (PCR) (Not Detectd) Influenza Type B (PCR) (Not Detectd) RSV (PCR) (Not Detectd) SARS-CoV-2 (PCR) (Not Detectd) 10/21/23 10/21/23 Range/Units 10:23 11:28 WBC (3.8-10.6) k/uL RBC (3.80-5.40) m/uL Hgb (11.4-16.0) gm/dL Hct (34.0-46.0) % MCV (80.0-100.0) fL MCH (25.0-35.0) pg MCHC (31.0-37.0) g/dL RDW (11.5-15.5) % Plt Count (150-450) k/uL MPV Neutrophils % % Lymphocytes % % Monocytes % % Eosinophils % % Basophils % % Neutrophils # (1.3-7.7) k/uL Lymphocytes # (1.0-4.8) k/uL Monocytes # (0-1.0) k/uL Eosinophils # (0-0.7) k/uL Basophils # (0-0.2) k/uL PT (10.0-12.5) sec INR (<1.2) APTT (22.0-30.0) sec Sodium 139 (137-145) mmol/L Potassium 3.6 (3.5-5.1) mmol/L Chloride 108 H (98-107) mmol/L Carbon Dioxide 23 (22-30) mmol/L Anion Gap 8 mmol/L BUN 18 H (7-17) mg/dL Creatinine 1.13 H (0.52-1.04) mg/dL Est GFR (CKD-EPI)AfAm 54 (>60 ml/min/1.73 sqM) Est GFR (CKD-EPI)NonAf 46 (>60 ml/min/1.73 sqM) Glucose 172 H (74-99) mg/dL Plasma Lactic Acid Abhijeet (0.7-2.0) mmol/L Calcium 8.4 (8.4-10.2) mg/dL Magnesium 1.4 L (1.6-2.3) mg/dL Total Bilirubin 0.7 (0.2-1.3) mg/dL AST 29 (14-36) U/L ALT 23 (4-34) U/L Alkaline Phosphatase 72 (38-126) U/L Total Protein 6.6 (6.3-8.2) g/dL Albumin 3.6 (3.5-5.0) g/dL Influenza Type A (PCR) Not Detected (Not Detectd) Influenza Type B (PCR) Not Detected (Not Detectd) RSV (PCR) Detected A (Not Detectd) SARS-CoV-2 (PCR) Not Detected (Not Detectd) Disposition Clinical Impression: Acute exacerbation of chronic obstructive pulmonary disease, RSV infection Disposition: ADMITTED IP TO THIS HOSP Is patient prescribed a controlled substance at d/c from ED?: No Referrals: None,Stated [Primary Care Provider] - 1-2 days Time of Disposition: 13:08
[2023-10-21 10:51] LABS: Basophils # (A) 0.1 k/uL (0-0.2); Basophils % (A) 1 %; Eosinophils # (A) 0.3 k/uL (0-0.7); Eosinophils % (A) 3 %; HCT 34.7 % (34.0-46.0); HGB 12.1 gm/dL (11.4-16.0); Lymphocytes # (A) 1.8 k/uL (1.0-4.8); Lymphocytes % (A) 20 %; MCH 31.5 pg (25.0-35.0); MCHC 34.9 g/dL (31.0-37.0); MCV 90.2 fL (80.0-100.0); Mean Platelet Volume 7.6; Monocytes # (A) 0.7 k/uL (0-1.0); Monocytes % (A) 7 %; Neutrophils % (A) 66 %; Platelet Count 167 k/uL (150-450); RBC 3.85 m/uL (3.80-5.40); RDW 13.9 % (11.5-15.5); WBC 9.1 k/uL (3.8-10.6)
--- NOTE | 2023-10-21 11:12 | XR ---
EXAMINATION TYPE: XR chest 2V DATE OF EXAM: 10/21/2023 COMPARISON: 09/08/2023 INDICATION: Difficulty breathing TECHNIQUE: Frontal and lateral views of the chest are obtained. FINDINGS: The heart size is normal. The pulmonary vasculature is normal. The lungs are clear. IMPRESSION: 1. No acute pulmonary process.
[2023-10-21 11:14] LABS: Partial Thromboplastin Time 22.1 sec (22.0-30.0); Prothrombin Time 10.7 sec (10.0-12.5)
[2023-10-21 12:12] LABS: ALT 23 U/L (4-34); AST 29 U/L (14-36); African American GFR (CKD) 54 (>60 ml/min/1.73 sqM); Albumin 3.6 g/dL (3.5-5.0); Alkaline Phosphatase 72 U/L (38-126); Anion Gap 8 mmol/L; Blood Urea Nitrogen 18 mg/dL (7-17); Calcium 8.4 mg/dL (8.4-10.2); Carbon Dioxide 23 mmol/L (22-30); Chloride 108 mmol/L (98-107); Glucose 172 mg/dL (74-99); Magnesium 1.4 mg/dL (1.6-2.3); Non-African American GFR(CKD) 46 (>60 ml/min/1.73 sqM); Potassium 3.6 mmol/L (3.5-5.1); Sodium 139 mmol/L (137-145); Total Bilirubin 0.7 mg/dL (0.2-1.3); Total Protein 6.6 g/dL (6.3-8.2)
[2023-10-21] MEDS ORDERED: NALOXONE 0.4 MG/ML 1 ML VIAL IVP PRN (13:09)
[2023-10-21] MEDS ORDERED: IPRATROPIUM-ALBUTEROL 3 ML NEB INHALATION PRN (13:09)
[2023-10-21] MEDS ORDERED: MAGNESIUM SULFATE-D5W PMX 1 GM in DEXTROSE/WATER 1 100ML.BAG IVPB ONE (13:20)
[2023-10-21] MEDS: IPRATROPIUM-ALBUTEROL 3 ML NEB INHALATION SCH ×2 (14:43→20:11)
[2023-10-21] MEDS ORDERED: ACETAMINOPHEN TAB 325 MG TAB PO PRN (16:24)
[2023-10-21] MEDS ORDERED: ALBUTEROL NEBULIZED 2.5 MG/3 ML INHALATION PRN (16:24)
[2023-10-21] MEDS ORDERED: LORazepam 0.5 MG TAB PO PRN (16:24)
[2023-10-21] MEDS ORDERED: DEXTROSE 50% SYRINGE 50 ML IVP PRN ×2 (16:50)
--- NOTE | 2023-10-21 16:51 | P.HPIM ---
History of Present Illness H&P Date: 10/21/23 Patient is a 78-year-old female with history of hypertension, dyslipidemia, diabetes, heart failure presenting with shortness of breath. Patient has never been diagnosed with asthma or COPD. However she is a former smoker, smoked for 20 years a pack and a half. She quit smoking 38 years ago. She claims that she recently got over COVID pneumonia and was recently admitted in the hospital, soon after she had persistent cough. She presented to her PCP office and continue to receive antibiotics and steroids. However over the last couple of days she has been feeling more dyspneic and with increased cough. She desired to come to the hospital. She denies any alcohol use or illicit drug use. In the ED, temperature was 99, pulse 79, respiratory rate 19, blood pressure 144/60, saturating at 94% on room air. WBC 9.1, hemoglobin 12.1, potassium 3.6, creatinine 1.13, magnesium 1.4, lactate 0.9, RSV positive. Chest x-ray independently interpreted, shows no significant opacities. EKG independently interpreted, shows normal sinus rhythm. Patient admitted for Pertinent positives and negatives as discussed in HPI, a complete review of systems was performed and all other systems are negative. Patient seen and examined at bedside. Vital signs reviewed General: nontoxic, no distress, appears at stated age, morbid obesity Derm: warm, dry Head: atraumatic, normocephalic, symmetric Eyes: EOMI, no lid lag, anicteric sclera, pupils equal round reactive to light ENT: Nose and ears atraumatic Neck: No thyromegaly, supple Mouth: no lip lesion, mucus membranes moist Cardiovascular: S1S2 reg, no murmur, no edema Lungs: Scattered wheeze, no accessory muscle use Abdominal: soft, nontender to palpation, no guarding, no appreciable organomegaly Ext: no gross muscle atrophy, muscle strength muscle strength 5 out of 5 in all 4 extremities, no contractures Neuro: CN II-XII grossly intact Psych: Alert, oriented, appropriate affect Assessment/Plan: Active: RSV pneumonia Acute dyspnea COPD exacerbation -Albuterol as needed, DuoNeb as needed, and scheduled, Solu-Medrol 60 IV every 6 hours -Needs outpatient PFTs -Needs controller inhalers at the time of discharge. Hypomagnesemia -Replaced with 1 g IV magnesium sulfate in the ED Type 2 diabetes -Sliding scale insulin, monitor for hypoglycemia Chronic: Diastolic CHF, not in exacerbation Hypertension Dyslipidemia The patient is admitted with an anticipated less than 2 midnight stay as observation status for evaluation of RSV pneumonia. Surrogate decision-maker: Daughter CODE STATUS: Full code DVT prophylaxis: Subcu heparin Anticipated discharge date: Pending clinical course Anticipated discharge place: Pending clinical course A total of 55 minutes was spent on the care of this complex patient more than 50% of the time was spent in counseling and care coordination. Past Medical History Past Medical History: Heart Failure, Diabetes Mellitus, Hyperlipidemia, Hypertension History of Any Multi-Drug Resistant Organisms: None Reported Past Surgical History: Appendectomy, Breast Surgery, Cholecystectomy, Hysterectomy, Orthopedic Surgery Additional Past Surgical History / Comment(s): cardiac stents Past Psychological History: No Psychological Hx Reported Smoking Status: Former smoker Past Alcohol Use History: None Reported Past Drug Use History: None Reported Medications and Allergies Home Medications Medication Instructions Recorded Confirmed Type Clopidogrel [Plavix] 75 mg PO DAILY 11/18/21 10/21/23 History Evolocumab [Repatha Sureclick] 140 mg SQ Q14D 11/18/21 10/21/23 History Isosorbide Mononitrate ER [Imdur] 60 mg PO DAILY 11/18/21 10/21/23 History Metoprolol Succinate (ER) [Toprol 50 mg PO DAILY 11/18/21 10/21/23 History XL] Pantoprazole [Protonix] 40 mg PO DAILY 11/18/21 10/21/23 History predniSONE 2.5 mg PO DAILY 11/18/21 10/21/23 History sitaGLIPtin [Januvia] 100 mg PO DAILY 11/18/21 10/21/23 History Albuterol Inhaler [Ventolin Hfa 2 puff INHALATION RT-QID PRN 09/08/23 10/21/23 History Inhaler] Colestipol HCl [Colestid] 1 gm PO DAILY 09/08/23 10/21/23 History Sertraline [Zoloft] 25 mg PO DAILY 09/08/23 10/21/23 History hydrALAZINE HCL [Apresoline] 25 mg PO TID 09/08/23 10/21/23 History Acetaminophen Tab [Tylenol] 650 mg PO Q6HR PRN tab 09/13/23 10/21/23 Rx Ascorbic Acid [Vitamin C] 1,000 mg PO DAILY #30 tab 09/13/23 10/21/23 Rx Cholecalciferol [Vitamin D3 (25 50 mcg PO DAILY #30 tab 09/13/23 10/21/23 Rx Mcg = 1000 Iu)] Furosemide [Lasix] 40 mg PO DAILY #30 tab 09/13/23 10/21/23 Rx Potassium Chloride ER [K-Dur 20] 20 meq PO DAILY #30 tab 09/13/23 10/21/23 Rx Zinc Sulfate [Orazinc] 220 mg PO DAILY 15 Days #15 cap 09/13/23 10/21/23 Rx Ciprofloxacin HCl [Cipro] 500 mg PO BID 10/21/23 10/21/23 History Gabapentin [Neurontin] 100 mg PO DAILY 10/21/23 10/21/23 History LORazepam [Ativan] 0.5 mg PO BID PRN 10/21/23 10/21/23 History Losartan [Cozaar] 50 mg PO BID 10/21/23 10/21/23 History Nystatin [Nystatin Oral Susp] 500,000 unit PO QID PRN 10/21/23 10/21/23 History Spironolactone [Aldactone] 25 mg PO DAILY 10/21/23 10/21/23 History guaiFENesin-Coden 100-10MG/5ML 10 ml PO Q6H PRN 10/21/23 10/21/23 History [Robitussin AC] Allergies Allergy/AdvReac Type Severity Reaction Status Date / Time sulfamethoxazole Allergy Unknown Verified 10/21/23 13:35 [From Bactrim] trimethoprim [From Bactrim] Allergy Unknown Verified 10/21/23 13:35 atorvastatin [From Lipitor] AdvReac Rapid Verified 10/21/23 13:35 Heart Rate/Increased BP duloxetine [From Cymbalta] AdvReac Cough Verified 10/21/23 13:35 ondansetron [From Zofran] AdvReac agitation Verified 10/21/23 13:35 pravastatin AdvReac Rapid Verified 10/21/23 13:35 Heart Rate [id number] Reductase AdvReac Rapid Verified 10/21/23 13:35 Inhibitor Heart Rate Physical Exam Vitals: Vital Signs Temp Pulse Pulse Resp BP BP Pulse Ox 10/21/23 16:01 97.5 F L 87 16 143/79 97 10/21/23 15:37 89 20 167/76 96 10/21/23 14:54 79 10/21/23 14:43 78 10/21/23 13:21 81 18 157/70 96 10/21/23 12:30 83 18 160/83 95 10/21/23 12:00 81 18 164/72 95 10/21/23 11:30 80 18 163/66 94 L 10/21/23 10:16 68 10/21/23 10:06 74 10/21/23 09:46 24 10/21/23 09:40 99.0 F 79 19 144/60 94 L Intake and Output 10/21/23 10/21/23 10/21/23 06:59 14:59 22:59 Other: Weight 99.79 kg Results CBC & Chem 7: 10/21/23 10:23 10/21/23 11:28 Labs: Abnormal Lab Results - Last 24 Hours (Table) 10/21/23 10/21/23 Range/Units 10:23 11:28 Chloride 108 H (98-107) mmol/L BUN 18 H (7-17) mg/dL Creatinine 1.13 H (0.52-1.04) mg/dL Glucose 172 H (74-99) mg/dL Magnesium 1.4 L (1.6-2.3) mg/dL RSV (PCR) Detected A (Not Detectd)
[2023-10-21 18:21] LABS: Glucose,Whole Blood 314 mg/dL (70-110)
[2023-10-21] MEDS: INSULIN ASPART (NovoLOG) 100 UNIT/ML VIAL SQ SCH ×2 (18:22→21:50)
[2023-10-21] MEDS: methylPREDNISolone SOD SUCCI 125 MG/2 ML VIAL IV SCH (18:29)
[2023-10-21 20:35] LABS: Glucose,Whole Blood 340 mg/dL (70-110)
[2023-10-21] MEDS: LOSARTAN 50 MG TAB PO SCH (21:46)
[2023-10-21] MEDS: hydrALAZINE HCL 25 MG TAB PO SCH (21:46)
[2023-10-21] MEDS: MELATONIN 5 MG TABLET PO SCH (23:57)
[2023-10-22] MEDS: methylPREDNISolone SOD SUCCI 125 MG/2 ML VIAL IV SCH ×5 (00:07→23:47)
[2023-10-22] MEDS: BENZONATATE 100 MG CAP PO PRN ×2 (03:02→08:23)
[2023-10-22 05:56] LABS: Glucose,Whole Blood 315 mg/dL (70-110)
[2023-10-22] MEDS: INSULIN ASPART (NovoLOG) 100 UNIT/ML VIAL SQ SCH ×6 (06:17→20:55)
[2023-10-22] MEDS: METOPROLOL SUCCINATE (ER) 50 MG TAB.ER.24H PO SCH (08:22)
[2023-10-22] MEDS: ISOSORBIDE MONONITRATE ER 60 MG TAB.ER.24H PO SCH (08:22)
[2023-10-22] MEDS: CHOLECALCIFEROL 25 MCG (1000 IU) TABLET PO SCH (08:22)
[2023-10-22] MEDS: FUROSEMIDE 40 MG TAB PO SCH (08:22)
[2023-10-22] MEDS: PANTOPRAZOLE 40 MG TABLET PO SCH (08:22)
[2023-10-22] MEDS: SERTRALINE 25 MG TAB PO SCH (08:22)
[2023-10-22] MEDS: LOSARTAN 50 MG TAB PO SCH ×2 (08:22→20:54)
[2023-10-22] MEDS: SPIRONOLACTONE 25 MG TAB PO SCH (08:22)
[2023-10-22] MEDS: ASCORBIC ACID 500 MG TAB PO SCH (08:23)
[2023-10-22] MEDS: CLOPIDOGREL 75 MG TAB PO SCH (08:23)
[2023-10-22] MEDS: hydrALAZINE HCL 25 MG TAB PO SCH ×3 (08:23→20:54)
[2023-10-22] MEDS: IPRATROPIUM-ALBUTEROL 3 ML NEB INHALATION SCH ×4 (08:26→18:18)
[2023-10-22] MEDS: GABAPENTIN 100 MG CAP PO SCH (08:29)
[2023-10-22 08:51] LABS: Magnesium 1.9 mg/dL (1.5-2.4)
[2023-10-22 08:52] LABS: BUN/Creat Ratio 15.58 Ratio (12.00-20.00); Blood Urea Nitrogen 18.7 mg/dL (9.0-27.0); Calcium 8.7 mg/dL (8.7-10.3); Chloride 104 mmol/L (96-109); Glucose 345 mg/dL (70-110); Potassium 4.6 mmol/L (3.5-5.5); Sodium 140 mmol/L (135-145)
[2023-10-22] MEDS ORDERED: predniSONE 2.5 MG TAB PO SCH (09:00)
[2023-10-22] MEDS ORDERED: COLESTIPOL HCL 1 GM PO SCH (09:00)
[2023-10-22 12:12] LABS: Glucose,Whole Blood 314 mg/dL (70-110)
[2023-10-22] MEDS: COLESTIPOL HCL 1 GM PO SCH (14:13)
--- NOTE | 2023-10-22 14:54 | P.PN ---
Subjective Progress Note Date: 10/22/23 Patient is a 78-year-old female with history of hypertension, dyslipidemia, diabetes, heart failure presenting with shortness of breath. Patient has never been diagnosed with asthma or COPD. However she is a former smoker, smoked for 20 years a pack and a half. She quit smoking 38 years ago. She claims that she recently got over COVID pneumonia and was recently admitted in the hospital, soon after she had persistent cough. She presented to her PCP office and continue to receive antibiotics and steroids. However over the last couple of days she has been feeling more dyspneic and with increased cough. She desired to come to the hospital. She denies any alcohol use or illicit drug use. In the ED, temperature was 99, pulse 79, respiratory rate 19, blood pressure 144/60, saturating at 94% on room air. WBC 9.1, hemoglobin 12.1, potassium 3.6, creatinine 1.13, magnesium 1.4, lactate 0.9, RSV positive. Chest x-ray independently interpreted, shows no significant opacities. EKG independently interpreted, shows normal sinus rhythm. Patient admitted for COPD exacerbation. 10/22 Patient was seen and examined. Reports wet cough. Complains of SOB. Saturating 90s on RA. BMP glu 345. A1c 7.6. General: nontoxic, no distress, appears at stated age, morbid obesity Derm: warm, dry Head: atraumatic, normocephalic, symmetric Eyes: EOMI, no lid lag, anicteric sclera, pupils equal round reactive to light ENT: Nose and ears atraumatic Neck: No thyromegaly, supple Mouth: no lip lesion, mucus membranes moist Cardiovascular: S1S2 reg, no murmur, no edema Lungs: Scattered wheeze, no accessory muscle use Ext: no gross muscle atrophy, muscle strength muscle strength 5 out of 5 in all 4 extremities, no contractures Psych: Alert, oriented, appropriate affect Based on my assessment of this patient, this patient meets a moderate complexity level of care. Patient has a new diagnosis of COPD exacerbation complicated with RSV with uncertain prognosis. RSV pneumonia Acute dyspnea COPD exacerbation: DuoNeb scheduled and PRN for SOB/wheezing. SoluMedrol 60 mg IV Q6H. Home O2 eval prior to discharge. Pulmonary consult. Diabetes mellitus with hyperglycemia: Add Levemir 25 units QHS and Novolog 8 units TID. CODE STATUS: FULL CODE DVT Prophylaxis: Lovenox GI Prophylaxis: Protonix Designated medical POA if patient is not able to make medical decisions for themselves: I have reviewed the following heritage consultant notes: I have reviewed the results of the following tests: BMP. A1c. I have ordered the following tests: I have discussed the care of this patient with the following independent historian: I have independently interpreted the following test below: I have discussed the management of this patient with the following physician: Objective - Vital Signs Vital signs: Vital Signs Temp 97.8 F 10/22/23 07:48 Pulse 80 10/22/23 11:57 Resp 18 10/22/23 08:00 BP 145/75 10/22/23 07:48 Pulse Ox 98 10/22/23 07:48 FiO2 Intake & Output 10/21/23 10/22/23 10/22/23 18:59 06:59 18:59 Intake Total 118 Balance 118 Weight 99.79 kg Intake: Oral 118 Other: Voiding Method Toilet Toilet # Voids 1 - Labs CBC & Chem 7: 10/21/23 10:23 10/22/23 06:05 Labs: Abnormal Lab Results - Last 24 Hours (Table) 10/21/23 10/21/23 10/22/23 Range/Units 18:18 20:34 05:53 Est GFR (CKD-EPI) (>=60) Glucose (70-110) mg/dL POC Glucose (mg/dL) 314 H 340 H 315 H (70-110) mg/dL Hemoglobin A1c (<=6.0) % 10/22/23 10/22/23 10/22/23 Range/Units 06:05 06:05 12:11 Est GFR (CKD-EPI) 46 L (>=60) Glucose 345 H (70-110) mg/dL POC Glucose (mg/dL) 314 H (70-110) mg/dL Hemoglobin A1c 7.6 H (<=6.0) %
[2023-10-22 17:44] LABS: Glucose,Whole Blood 350 mg/dL (70-110)
[2023-10-22 20:29] LABS: Glucose,Whole Blood 303 mg/dL (70-110)
[2023-10-22] MEDS: MELATONIN 5 MG TABLET PO SCH (20:39)
[2023-10-22] MEDS ORDERED: INSULIN DETEMIR (LEVEMIR) 100 UNIT/ML SYR SQ SCH (21:00)
--- NOTE | 2023-10-23 01:04 | P.CNPUL ---
History of Present Illness Consult date: 10/23/23 Requesting physician: Ariel Strong Reason for consult: COPD, other (Acute RSV infection) Chief complaint: Shortness of breath and cough History of present illness: Patient is a 78-year-old white female with past medical history significant for coronary artery disease with previous PCI/stents, heart failure, diabetes mellitus, hyperlipidemia, hypertension, obesity, among other things. I am seeing this patient in new consultation today October 23, 2023, as the patient recently was recently hospitalized for acute COVID infection September 08 through . She has been suffering from persistent respiratory symptoms since her hospital discharge. She has had a persistent cough that was originally productive with dark green sputum. Patient states that her primary care provider, Dr. Barb lopez of [facility], tested her sputum which was positive for Pseudomonas aeruginosa. She was treated with a 7 day course of ciprofloxacin outpatient. Her sputum production has improved, however, she started experiencing worsening shortness of breath starting Sunday. Her cough is again persistent, with light green sputum production. She has been treated with a Medrol Dosepak and Tessalon Perles outpatient that have not really helped much with her cough. Denies any history of ever being diagnosed with COPD or asthma, although she does have a 20-year smoking history. She quit smoking tobacco in 1985. When the patient came to the emergency room on October 21, she did test positive for RSV. There was suspicion for underlying COPD exacerbation by the ER physician, and she was started on a combination of bronchodilators and IV Solu-Medrol. For this reason we were consulted. Chest x-ray on arrival did not show any acute pulmonary process, no focal consolidations or evidence of pneumonia. Patient is currently sitting up in bed, on 2 L/min nasal cannula, in no acute distress. SpO2 is 95%. CBC on arrival was unremarkable. No leukocytosis. BMP from yesterday was unremarkable. She is hyperglycemic, likely exacerbated by her steroids. Able to tolerate oral fluids. Currently afebrile. Vital signs are stable. Review of Systems REVIEW OF SYSTEMS: CONSTITUTIONAL: Denies any recent significant weight loss or weight gain. Admit s low-grade fevers. EYES: Denies change in vision. EARS, NOSE, MOUTH, THROAT:admits clear p nasal drainage and sore throat CARDIOVASCULAR: Denies chest pain, palpitations or syncopal episodes. RESPIRATORY: Admits severe shortness of breath that started on Sunday. There is an associated mildly productive cough with light green sputum. She does have some abdominal pain that she attributes to persistent coughing fits. Denies any hemoptysis. GASTROINTESTINAL: Denies change in appetite, abdominal pain, nausea and vomiting, or diarrhea GENITOURINARY: Denies hematuria, denies infections. MUSKULOSKELETAL: Denies pain, denies swelling. INTEGUMENTARY: Denies rash, denies eczema. NEUROLOGICAL: Denies recent memory loss, no recent seizure activity. PSYCHIATRIC: Denies anxiety, denies depression. HEMATOLOGIC/LYMPHATIC: Denies anemia, denies enlarged lymph node Past Medical History Past Medical History: Heart Failure, Diabetes Mellitus, Hyperlipidemia, Hy pertension History of Any Multi-Drug Resistant Organisms: None Reported Past Surgical History: Appendectomy, Breast Surgery, Cholecystectomy, Hysterec ben, Orthopedic Surgery Additional Past Surgical History / Comment(s): cardiac stents Past Anesthesia/Blood Transfusion Reactions: No Reported Reaction Past Psychological History: No Psychological Hx Reported Smoking Status: Former smoker Past Alcohol Use History: None Reported Past Drug Use History: None Reported Medications and Allergies Home Medications Medication Instructions Recorded Confirmed Type Clopidogrel [Plavix] 75 mg PO DAILY 11/18/21 10/21/23 History Evolocumab [Repatha Sureclick] 140 mg SQ Q14D 11/18/21 10/21/23 History Isosorbide Mononitrate ER [Imdur] 60 mg PO DAILY 11/18/21 10/21/23 History Metoprolol Succinate (ER) [Toprol 50 mg PO DAILY 11/18/21 10/21/23 History XL] Pantoprazole [Protonix] 40 mg PO DAILY 11/18/21 10/21/23 History predniSONE 2.5 mg PO DAILY 11/18/21 10/21/23 History sitaGLIPtin [Januvia] 100 mg PO DAILY 11/18/21 10/21/23 History Albuterol Inhaler [Ventolin Hfa 2 puff INHALATION RT-QID PRN 09/08/23 10/21/23 History Inhaler] Colestipol HCl [Colestid] 1 gm PO DAILY 09/08/23 10/21/23 History Sertraline [Zoloft] 25 mg PO DAILY 09/08/23 10/21/23 History hydrALAZINE HCL [Apresoline] 25 mg PO TID 09/08/23 10/21/23 History Acetaminophen Tab [Tylenol] 650 mg PO Q6HR PRN tab 09/13/23 10/21/23 Rx Ascorbic Acid [Vitamin C] 1,000 mg PO DAILY #30 tab 09/13/23 10/21/23 Rx Cholecalciferol [Vitamin D3 (25 50 mcg PO DAILY #30 tab 09/13/23 10/21/23 Rx Mcg = 1000 Iu)] Furosemide [Lasix] 40 mg PO DAILY #30 tab 09/13/23 10/21/23 Rx Potassium Chloride ER [K-Dur 20] 20 meq PO DAILY #30 tab 09/13/23 10/21/23 Rx Zinc Sulfate [Orazinc] 220 mg PO DAILY 15 Days #15 cap 09/13/23 10/21/23 Rx Ciprofloxacin HCl [Cipro] 500 mg PO BID 10/21/23 10/21/23 History Gabapentin [Neurontin] 100 mg PO DAILY 10/21/23 10/21/23 History LORazepam [Ativan] 0.5 mg PO BID PRN 10/21/23 10/21/23 History Losartan [Cozaar] 50 mg PO BID 10/21/23 10/21/23 History Nystatin [Nystatin Oral Susp] 500,000 unit PO QID PRN 10/21/23 10/21/23 History Spironolactone [Aldactone] 25 mg PO DAILY 10/21/23 10/21/23 History guaiFENesin-Coden 100-10MG/5ML 10 ml PO Q6H PRN 10/21/23 10/21/23 History [Robitussin AC] Allergies Allergy/AdvReac Type Severity Reaction Status Date / Time sulfamethoxazole Allergy Unknown Verified 10/21/23 13:35 [From Bactrim] trimethoprim [From Bactrim] Allergy Unknown Verified 10/21/23 13:35 atorvastatin [From Lipitor] AdvReac Rapid Verified 10/21/23 13:35 Heart Rate/Increased BP duloxetine [From Cymbalta] AdvReac Cough Verified 10/21/23 13:35 ondansetron [From Zofran] AdvReac agitation Verified 10/21/23 13:35 pravastatin AdvReac Rapid Verified 10/21/23 13:35 Heart Rate [id number] Reductase AdvReac Rapid Verified 10/21/23 13:35 Inhibitor Heart Rate Physical Exam Vitals: Vital Signs Temp Pulse Pulse Resp BP Pulse Ox 10/22/23 20:00 97.7 F 101 H 18 126/64 10/22/23 18:32 94 10/22/23 18:22 92 10/22/23 15:00 97.9 F 97 18 129/73 95 10/22/23 14:00 91 18 10/22/23 11:57 80 10/22/23 11:46 76 10/22/23 08:42 84 10/22/23 08:27 80 10/22/23 08:00 91 18 10/22/23 07:48 97.8 F 91 18 145/75 98 10/22/23 04:32 85 10/22/23 02:00 97.9 F 86 16 137/68 97 10/22/23 01:58 101 H 16 Intake and Output 10/22/23 10/22/23 10/23/23 14:59 22:59 06:59 Intake Total 118 Balance 118 Intake: Oral 118 Other: Voiding Method Toilet Toilet # Voids 2 1 GENERAL EXAM: Alert, 78-year-old white female, comfortable in no apparent distress. HEAD: Normocephalic and atraumatic EYES: Normal reaction of pupils, equal size. NOSE: Clear with pink turbinates. THROAT: No erythema or exudates. NECK: No masses, no JVD. CHEST: No chest wall deformity. LUNGS: Equal air entry with no crackles, wheeze, rhonchi or dullness. On 2 L/min nasal cannula. No conversational dyspnea or accessory muscle use.. CVS: S1 and S2 normal with no audible murmur, regular rhythm. No extra heart sounds ABDOMEN: No hepatosplenomegaly, active bowel sounds, no guarding or rigidity. SPINE: No scoliosis or deformity SKIN: No rashes CENTRAL NERVOUS SYSTEM: No focal deficits, tone is normal in all 4 extremities. EXTREMITIES: There is no peripheral edema, clubbing, or cyanosis. Peripheral pulses are intact. Results - Laboratory Findings CBC and BMP: 10/21/23 10:23 10/22/23 06:05 PT/INR, D-dimer PT 10.7 sec (10.0-12.5) 10/21/23 10:23 INR 1.0 (<1.2) 10/21/23 10:23 Abnormal lab findings: Abnormal Labs 10/21/23 10/21/23 10/21/23 10:23 11:28 18:18 Chloride 108 H BUN 18 H Creatinine 1.13 H Est GFR (CKD-EPI) Glucose 172 H POC Glucose (mg/dL) 314 H Hemoglobin A1c Magnesium 1.4 L RSV (PCR) Detected A 10/21/23 10/22/23 10/22/23 20:34 05:53 06:05 Chloride BUN Creatinine Est GFR (CKD-EPI) Glucose POC Glucose (mg/dL) 340 H 315 H Hemoglobin A1c 7.6 H Magnesium RSV (PCR) 10/22/23 10/22/23 10/22/23 06:05 12:11 17:43 Chloride BUN Creatinine Est GFR (CKD-EPI) 46 L Glucose 345 H POC Glucose (mg/dL) 314 H 350 H Hemoglobin A1c Magnesium RSV (PCR) 10/22/23 20:27 Chloride BUN Creatinine Est GFR (CKD-EPI) Glucose POC Glucose (mg/dL) 303 H Hemoglobin A1c Magnesium RSV (PCR) - Diagnostic Findings Chest x-ray: image reviewed Assessment and Plan Assessment: Acute hypoxemic respiratory failure, currently on 2 L/min nasal cannula, chest x-ray on arrival did not show any acute cardiopulmonary process or infiltrate suggesting pneumonia. Acute RSV infection Acute tracheobronchitis, isolated organism was Pseudomonas aeruginosa outpatient, completed 7 days of fluoroquinolone antibiotics. Possible underlying acute COPD exacerbation Recent acute COVID 19 infection with postviral cough History of coronary artery disease, with previous PCI/stent History of congestive heart failure, not in exacerbation History of hyperlipidemia Diabetes mellitus type II, not normally insulin-dependent Morbid obesity, with a BMI of 40.2 kg/m Former tobacco smoker Plan: Patient's medications, labs, chest x-ray reviewed. Continue supplemental oxygen, currently on 2 L/min nasal cannula. SpO2 ranges 95 to 96%. Wean as tolerated. Continue combination of bronchodilators [id number] and IV Solu-Medrol. Patient has no documented history of COPD, however, was felt to be symptomatic for COPD exacerbation on admission. She does have a [id number] smoking history. Quit smoking in 1985. May consider follow-up in the pulmonary office for PFT. Continue fluoroquinolone antibiotics, check procalcitonin level Add Robitussin DM as antitussive Patient's congestive heart failure is not exacerbation, her home diuretics have already been restarted. Lovenox for DVT prophylaxis and Protonix for GI prophylaxis We will continue to follow I have personally seen and examined the patient, performed the documentation and the assessment and plan as written. Number of minutes spent on the visit:20 Time with Patient: Greater than 30
[2023-10-23] MEDS: guaiFENesin-DM 100-10MG/5ML 10 ML CUP PO SCH ×4 (01:08→16:01)
[2023-10-23 06:27] LABS: Glucose,Whole Blood 210 mg/dL (70-110)
[2023-10-23] MEDS: INSULIN ASPART (NovoLOG) 100 UNIT/ML VIAL SQ SCH ×4 (06:47→13:20)
[2023-10-23] MEDS: methylPREDNISolone SOD SUCCI 125 MG/2 ML VIAL IV SCH ×2 (06:47→13:18)
[2023-10-23] MEDS ORDERED: LEVOFLOXACIN 500 MG TAB PO SCH (08:00)
[2023-10-23] MEDS: IPRATROPIUM-ALBUTEROL 3 ML NEB INHALATION SCH ×3 (08:16→15:00)
[2023-10-23] MEDS ORDERED: ENOXAPARIN 40 MG/0.4 ML SYRINGE SQ SCH (09:00)
[2023-10-23] MEDS: COLESTIPOL HCL 1 GM PO SCH (09:35)
[2023-10-23] MEDS: SERTRALINE 25 MG TAB PO SCH (09:36)
[2023-10-23] MEDS: ISOSORBIDE MONONITRATE ER 60 MG TAB.ER.24H PO SCH (09:36)
[2023-10-23] MEDS: LOSARTAN 50 MG TAB PO SCH (09:37)
[2023-10-23] MEDS: METOPROLOL SUCCINATE (ER) 50 MG TAB.ER.24H PO SCH (09:51)
[2023-10-23] MEDS: FUROSEMIDE 40 MG TAB PO SCH (09:51)
[2023-10-23] MEDS: GABAPENTIN 100 MG CAP PO SCH ×2 (09:51→12:10)
[2023-10-23] MEDS: hydrALAZINE HCL 25 MG TAB PO SCH (09:52)
[2023-10-23] MEDS: CLOPIDOGREL 75 MG TAB PO SCH (09:52)
[2023-10-23] MEDS: SPIRONOLACTONE 25 MG TAB PO SCH (09:52)
[2023-10-23] MEDS: ASCORBIC ACID 500 MG TAB PO SCH (09:52)
[2023-10-23] MEDS: PANTOPRAZOLE 40 MG TABLET PO SCH (09:52)
[2023-10-23] MEDS: CHOLECALCIFEROL 25 MCG (1000 IU) TABLET PO SCH (09:52)
--- NOTE | 2023-10-23 10:47 | P.DS ---
Providers Date of admission: 10/21/23 13:13 Expected date of discharge: 10/23/23 Attending physician: Buzz Frances MD Consults: 10/22/23 08:56 Consult Physician Routine Consulting Provider: Juventino Heard Consult Reason/Comments: copd rsv Do you want consulting provider notified?: Yes Primary care physician: Buzz Frances MD Hospital Course: Patient is a 78-year-old female with history of hypertension, dyslipidemia, diabetes, heart failure presenting with shortness of breath. Patient has never been diagnosed with asthma or COPD. However she is a former smoker, smoked for 20 years a pack and a half. She quit smoking 38 years ago. She claims that she recently got over COVID pneumonia and was recently admitted in the hospital, soon after she had persistent cough. She presented to her PCP office and continue to receive antibiotics and steroids. However over the last couple of days she has been feeling more dyspneic and with increased cough. She desired to come to the hospital. She denies any alcohol use or illicit drug use. In the ED, temperature was 99, pulse 79, respiratory rate 19, blood pressure 144/60, saturating at 94% on room air. WBC 9.1, hemoglobin 12.1, potassium 3.6, creatinine 1.13, magnesium 1.4, lactate 0.9, RSV positive. Chest x-ray independently interpreted, shows no significant opacities. EKG independently interpreted, shows normal sinus rhythm. Patient admitted for COPD exacerbation. 10/22 Patient was seen and examined. Reports wet cough. Complains of SOB. Saturating 90s on RA. BMP glu 345. A1c 7.6. 10/23 Patient was seen and examined. Continues to have a cough. Procal is 0.13. Pulmonary consulted, started patient on Levaquin (she was previously taking Ciprofloxacin prescribed by her PCP for Pseudomonal sputum Cx). Home O2 eval done, she will need 2L with exertion. Patient requires a nebulizer with DuoNeb Q4H PRN for SOB/wheezing to manage her diagnosis of COPD. Advised to continue Prednisone 40 mg PO QD x 3 days followed by home medication of 2.5 mg PO QD. Prescription for Symbicort sent to pharmacy. She will need follow up with Pulmonary in the outpatient setting for formal diagnosis and further management. Hopeful discharge today if feeling better this afternoon. General: nontoxic, no distress, appears at stated age, morbid obesity Derm: warm, dry Head: atraumatic, normocephalic, symmetric Eyes: EOMI, no lid lag, anicteric sclera ENT: Nose and ears atraumatic Neck: No thyromegaly, supple Mouth: no lip lesion, mucus membranes moist Cardiovascular: S1S2 reg, no murmur, no edema Lungs: Decreased BS BL, no accessory muscle use Ext: no gross muscle atrophy, muscle strength muscle strength 5 out of 5 in all 4 extremities, no contractures Psych: Alert, oriented, appropriate affect Discharge Diagnosis: Acute hypoxic respiratory failure RSV pneumonia Laryngotracheobronchitis COPD exacerbation Diabetes mellitus with hyperglycemia This complex discharge took 35 minutes to complete. Patient Condition at Discharge: Stable Plan - Discharge Summary Discharge Rx Participant: Yes New Discharge Prescriptions: New Ipratropium-Albuterol Nebulize [Duoneb 0.5 mg-3 mg/3 ml Soln] 3 ml INHALATION RT-QID PRN #120 each PRN Reason: Shortness Of Breath predniSONE [Deltasone] 40 mg PO DAILY #6 tab Budesonide-Formot 160-4.5 Mcg [Symbicort 160-4.5 Mcg Inhaler] 2 puff INHALATION RT-BID #1 each Continue predniSONE 2.5 mg PO DAILY Pantoprazole [Protonix] 40 mg PO DAILY Clopidogrel [Plavix] 75 mg PO DAILY sitaGLIPtin [Januvia] 100 mg PO DAILY Metoprolol Succinate (ER) [Toprol XL] 50 mg PO DAILY hydrALAZINE HCL [Apresoline] 25 mg PO TID Albuterol Inhaler [Ventolin Hfa Inhaler] 2 puff INHALATION RT-QID PRN PRN Reason: Shortness Of Breath Potassium Chloride ER [K-Dur 20] 20 meq PO DAILY #30 tab Zinc Sulfate [Orazinc] 220 mg PO DAILY 15 Days #15 cap Acetaminophen Tab [Tylenol] 650 mg PO Q6HR PRN tab PRN Reason: Mild Pain Or Fever > 100.5 Ascorbic Acid [Vitamin C] 1,000 mg PO DAILY #30 tab Spironolactone [Aldactone] 25 mg PO DAILY Nystatin [Nystatin Oral Susp] 500,000 unit PO QID PRN PRN Reason: thrush Losartan [Cozaar] 50 mg PO BID LORazepam [Ativan] 0.5 mg PO BID PRN PRN Reason: Anxiety guaiFENesin-Coden 100-10MG/5ML [Robitussin AC] 10 ml PO Q6H PRN PRN Reason: Cough Isosorbide Mononitrate ER [Imdur] 60 mg PO DAILY Evolocumab [Repatha Sureclick] 140 mg SQ Q14D Sertraline [Zoloft] 25 mg PO DAILY Colestipol HCl [Colestid] 1 gm PO DAILY Furosemide [Lasix] 40 mg PO DAILY #30 tab Cholecalciferol [Vitamin D3 (25 Mcg = 1000 Iu)] 50 mcg PO DAILY #30 tab Gabapentin [Neurontin] 100 mg PO DAILY Ciprofloxacin HCl [Cipro] 500 mg PO BID Discharge Medication List Clopidogrel [Plavix] 75 mg PO DAILY 11/18/21 [History] Evolocumab [Repatha Sureclick] 140 mg SQ Q14D 11/18/21 [History] Isosorbide Mononitrate ER [Imdur] 60 mg PO DAILY 11/18/21 [History] Metoprolol Succinate (ER) [Toprol XL] 50 mg PO DAILY 11/18/21 [History] Pantoprazole [Protonix] 40 mg PO DAILY 11/18/21 [History] predniSONE 2.5 mg PO DAILY 11/18/21 [History] sitaGLIPtin [Januvia] 100 mg PO DAILY 11/18/21 [History] Albuterol Inhaler [Ventolin Hfa Inhaler] 2 puff INHALATION RT-QID PRN 09/08/23 [History] Colestipol HCl [Colestid] 1 gm PO DAILY 09/08/23 [History] Sertraline [Zoloft] 25 mg PO DAILY 09/08/23 [History] hydrALAZINE HCL [Apresoline] 25 mg PO TID 09/08/23 [History] Acetaminophen Tab [Tylenol] 650 mg PO Q6HR PRN tab 09/13/23 [Rx] Ascorbic Acid [Vitamin C] 1,000 mg PO DAILY #30 tab 09/13/23 [Rx] Cholecalciferol [Vitamin D3 (25 Mcg = 1000 Iu)] 50 mcg PO DAILY #30 tab 09/13/23 [Rx] Furosemide [Lasix] 40 mg PO DAILY #30 tab 09/13/23 [Rx] Potassium Chloride ER [K-Dur 20] 20 meq PO DAILY #30 tab 09/13/23 [Rx] Zinc Sulfate [Orazinc] 220 mg PO DAILY 15 Days #15 cap 09/13/23 [Rx] Ciprofloxacin HCl [Cipro] 500 mg PO BID 10/21/23 [History] Gabapentin [Neurontin] 100 mg PO DAILY 10/21/23 [History] LORazepam [Ativan] 0.5 mg PO BID PRN 10/21/23 [History] Losartan [Cozaar] 50 mg PO BID 10/21/23 [History] Nystatin [Nystatin Oral Susp] 500,000 unit PO QID PRN 10/21/23 [History] Spironolactone [Aldactone] 25 mg PO DAILY 10/21/23 [History] guaiFENesin-Coden 100-10MG/5ML [Robitussin AC] 10 ml PO Q6H PRN 10/21/23 [History] Budesonide-Formot 160-4.5 Mcg [Symbicort 160-4.5 Mcg Inhaler] 2 puff INHALATION RT-BID #1 each 10/23/23 [Rx] Ipratropium-Albuterol Nebulize [Duoneb 0.5 mg-3 mg/3 ml Soln] 3 ml INHALATION RT-QID PRN #120 each 10/23/23 [Rx] predniSONE [Deltasone] 40 mg PO DAILY #6 tab 10/23/23 [Rx] Follow up Appointment(s)/Referral(s): Juan M Rivas DO [Doctor of Osteopathic Medicine] - 1 Week None,Stated [REFERRING] - 1-2 days Activity/Diet/Wound Care/Special Instructions: Diet: Cardiac Take your ciprofloxacin as prescribed to you by your PCP. Take Prednisone 40 mg by mouth daily for 3 more days. After that, resume Prednisone 2.5 mg by mouth daily. Follow up with Dr. Rivas within 1 week of discharge. Discharge Disposition: HOME SELF-CARE
[2023-10-23 12:15] LABS: Glucose,Whole Blood 204 mg/dL (70-110)
[2023-10-23 14:05] VITALS: BP 149/66; TEMP 98.2
[2023-10-23 15:02] VITALS: RESP 18
[2023-10-23 15:34] VITALS: PULSE 80
[2023-10-23] MEDS ORDERED: SYMBICORT 160-4.5 MCG INHALER INHALATION SCH (20:00)
== END 2023-10-23 16:00 | disposition home or self-care (01) ==
LOC: EC 09:38 → 6NMEDSUR 13:13
PROVIDERS: ADMIT Student in an Organized Health Care Education/Training Program; ATTEND Student in an Organized Health Care Education/Training Program
DX: J96.01 Acute respiratory failure with hypoxia (principal); J44.0 Chronic obstructive pulmonary disease with (acute) lower respiratory infection; J12.1 Respiratory syncytial virus pneumonia; J40 Bronchitis, not specified as acute or chronic; J44.1 Chronic obstructive pulmonary disease with (acute) exacerbation; E11.65 Type 2 diabetes mellitus with hyperglycemia; E78.5 Hyperlipidemia, unspecified; I11.0 Hypertensive heart disease with heart failure; I50.32 Chronic diastolic (congestive) heart failure; E83.42 Hypomagnesemia; I25.10 Atherosclerotic heart disease of native coronary artery without angina pectoris; E66.01 Morbid (severe) obesity due to excess calories; Z68.41 Body mass index [BMI] 40.0-44.9, adult; Z20.822 Contact with and (suspected) exposure to COVID-19; Z86.16 Personal history of COVID-19; Z87.891 Personal history of nicotine dependence; Z95.5 Presence of coronary angioplasty implant and graft; Z79.02 Long term (current) use of antithrombotics/antiplatelets; Z79.52 Long term (current) use of systemic steroids; Z79.84 Long term (current) use of oral hypoglycemic drugs; Z79.899 Other long term (current) drug therapy; Z88.2 Allergy status to sulfonamides
CPT/HCPCS: 96376 ×3; 96361 ×3; 96372 ×3; 96365; 96366; 96375; 99285; 36415; 94640 ×6; 94760; 93005; 97162; 80053; 80048; 83605; 83735 ×2; 85025; 85610; 85730; 83036; 84145; 87636; 71046; G0378 ×3; J2930 ×3; J1650; J3475

== ENCOUNTER 2023-12-31 08:49 | Emergency (ER) | payer MEDICARE, BC ==
[2023-12-31] MEDS: ACETAMINOPHEN TAB 500 MG TAB PO STA (09:30)
[2023-12-31] MEDS: METOCLOPRAMIDE 10 MG TAB PO STA (09:30)
--- NOTE | 2023-12-31 10:17 | XR ---
EXAMINATION TYPE: XR chest 2V DATE OF EXAM: 12/31/2023 COMPARISON: 10/21/2023 HISTORY: Shortness of breath TECHNIQUE: Frontal and lateral views of the chest are obtained. FINDINGS: Scattered senescent parenchymal changes noted. Hyperinflation compatible with COPD. Patchy density right medial lung base may reflect developing infiltrate. Correlate clinically. Heart size is stable. Mediastinal structures are stable and grossly unremarkable. No evidence for hilar prominence. Degenerative changes dorsal spine. IMPRESSION: 1. Patchy density right medial lung base may reflect developing infiltrate. Correlate clinically.
--- NOTE | 2023-12-31 10:49 | ED ---
URI HPI - General Chief Complaint: Upper Respiratory Infection Stated Complaint: SOB/Weakness Time Seen by Provider: 12/31/23 09:06 Source: patient, RN notes reviewed Mode of arrival: ambulatory Limitations: no limitations - History of Present Illness Initial Comments: 78-year-old female presents emergency department chief complaint of cough congestion. She states she has been sick for the last 4 to 5 days. Patient states she has a mild productive cough denies any chest pain or shortness of breath. She states she has had fever, body aches and increasing nasal congestion no GI symptoms no other complaints. - Related Data Home Medications Medication Instructions Recorded Confirmed Clopidogrel [Plavix] 75 mg PO DAILY 11/18/21 10/21/23 Evolocumab [Repatha Sureclick] 140 mg SQ Q14D 11/18/21 10/21/23 Isosorbide Mononitrate ER [Imdur] 60 mg PO DAILY 11/18/21 10/21/23 Metoprolol Succinate (ER) [Toprol 50 mg PO DAILY 11/18/21 10/21/23 XL] Pantoprazole [Protonix] 40 mg PO DAILY 11/18/21 10/21/23 predniSONE 2.5 mg PO DAILY 11/18/21 10/21/23 sitaGLIPtin [Januvia] 100 mg PO DAILY 11/18/21 10/21/23 Albuterol Inhaler [Ventolin Hfa 2 puff INHALATION RT-QID PRN 09/08/23 10/21/23 Inhaler] Colestipol HCl [Colestid] 1 gm PO DAILY 09/08/23 10/21/23 Sertraline [Zoloft] 25 mg PO DAILY 09/08/23 10/21/23 hydrALAZINE HCL [Apresoline] 25 mg PO TID 09/08/23 10/21/23 Ciprofloxacin HCl [Cipro] 500 mg PO BID 10/21/23 10/21/23 Gabapentin [Neurontin] 100 mg PO DAILY 10/21/23 10/21/23 LORazepam [Ativan] 0.5 mg PO BID PRN 10/21/23 10/21/23 Losartan [Cozaar] 50 mg PO BID 10/21/23 10/21/23 Nystatin [Nystatin Oral Susp] 500,000 unit PO QID PRN 10/21/23 10/21/23 Spironolactone [Aldactone] 25 mg PO DAILY 10/21/23 10/21/23 guaiFENesin-Coden 100-10MG/5ML 10 ml PO Q6H PRN 10/21/23 10/21/23 [Robitussin AC] Previous Rx's Medication Instructions Recorded Acetaminophen Tab [Tylenol] 650 mg PO Q6HR PRN tab 09/13/23 Ascorbic Acid [Vitamin C] 1,000 mg PO DAILY #30 tab 09/13/23 Cholecalciferol [Vitamin D3 (25 50 mcg PO DAILY #30 tab 09/13/23 Mcg = 1000 Iu)] Furosemide [Lasix] 40 mg PO DAILY #30 tab 09/13/23 Potassium Chloride ER [K-Dur 20] 20 meq PO DAILY #30 tab 09/13/23 Zinc Sulfate [Orazinc] 220 mg PO DAILY 15 Days #15 cap 09/13/23 Budesonide-Formot 160-4.5 Mcg 2 puff INHALATION RT-BID #1 each 10/23/23 [Symbicort 160-4.5 Mcg Inhaler] Ipratropium-Albuterol Nebulize 3 ml INHALATION RT-QID PRN #120 10/23/23 [Duoneb 0.5 mg-3 mg/3 ml Soln] each predniSONE [Deltasone] 40 mg PO DAILY #6 tab 10/23/23 Azithromycin [Zithromax Z Pack] 0 tab PO DIRECTED #6 tab 12/31/23 Allergies Allergy/AdvReac Type Severity Reaction Status Date / Time sulfamethoxazole Allergy Unknown Verified 12/31/23 08:56 [From Bactrim] trimethoprim [From Bactrim] Allergy Unknown Verified 12/31/23 08:56 atorvastatin [From Lipitor] AdvReac Rapid Verified 12/31/23 08:56 Heart Rate/Increased BP duloxetine [From Cymbalta] AdvReac Cough Verified 12/31/23 08:56 ondansetron [From Zofran] AdvReac agitation Verified 12/31/23 08:56 pravastatin AdvReac Rapid Verified 12/31/23 08:56 Heart Rate [id number] Reductase AdvReac Rapid Verified 12/31/23 08:56 Inhibitor Heart Rate Review of Systems ROS Statement: Those systems with pertinent positive or pertinent negative responses have been documented in the HPI. ROS Other: All systems not noted in ROS Statement are negative. Past Medical History Past Medical History: Heart Failure, Diabetes Mellitus, Hyperlipidemia, Hypertension History of Any Multi-Drug Resistant Organisms: None Reported Past Surgical History: Appendectomy, Breast Surgery, Cholecystectomy, Hysterectomy, Orthopedic Surgery Additional Past Surgical History / Comment(s): cardiac stents Past Anesthesia/Blood Transfusion Reactions: No Reported Reaction Past Psychological History: No Psychological Hx Reported Smoking Status: Former smoker Past Alcohol Use History: None Reported Past Drug Use History: None Reported General Exam Limitations: no limitations General appearance: alert, in no apparent distress Head exam: Present: atraumatic, normocephalic, normal inspection Eye exam: Present: normal appearance, PERRL, EOMI. Absent: scleral icterus, conjunctival injection, periorbital swelling ENT exam: Present: normal exam, normal oropharynx, mucous membranes moist Neck exam: Present: normal inspection, full ROM. Absent: tenderness, meningismus, lymphadenopathy Respiratory exam: Present: rhonchi. Absent: normal lung sounds bilaterally, respiratory distress, wheezes, rales, stridor Cardiovascular Exam: Present: regular rate, normal rhythm, normal heart sounds. Absent: systolic murmur, diastolic murmur, rubs, gallop, clicks Course Vital Signs 12/31/23 12/31/23 12/31/23 08:53 09:05 09:09 Temperature 100.8 F H 101.2 F H Pulse Rate 95 94 Respiratory 24 18 20 Rate Blood Pressure 173/72 165/73 O2 Sat by Pulse 96 92 L Oximetry 12/31/23 12/31/23 12/31/23 10:18 11:05 11:32 Temperature 99.0 F 99.0 F Pulse Rate 92 89 68 Respiratory 18 18 18 Rate Blood Pressure 156/76 150/68 150/68 O2 Sat by Pulse 96 92 L 93 L Oximetry Medical Decision Making - Medical Decision Making Was pt. sent in by a medical professional or institution (, PA, [employer], urgent care, hospital, or longterm...) When possible be specific @ -No Did you speak to anyone other than the patient for history (EMS, parent, family, police, friend...)? What history was obtained from this source @ -No Did you review nursing and triage notes (agree or disagree)? Why? @ -I reviewed and agree with nursing and triage notes Were old charts reviewed (outside hosp., previous admission, EMS record, old EKG, old radiological studies, urgent care reports/EKG's, longterm records)? Report findings @ -No old charts were reviewed Differential Diagnosis (chest pain, altered mental status, abdominal pain women, abdominal pain men, vaginal bleeding, weakness, fever, dyspnea, syncope, h eadache, dizziness, GI bleed, back pain, seizure, CVA, palpatations, mental health, musculoskeletal)? @ -COVID 19, RSV, influenza, pneumonia, acute bronchitis, URI, this list is not all inclusive EKG interpreted by me (3pts min.). @ -None X-rays interpreted by me (1pt min.). @ -X-ray chest 2 view shows evidence of right-sided pneumonia, early infiltrate CT interpreted by me (1pt min.). @ -None done U/S interpreted by me (1pt. min.). @ -None done What testing was considered but not performed or refused? (CT, X-rays, U/S, labs)? Why? @ -None What meds were considered but not given or refused? Why? @ -None Did you discuss the management of the patient with other professionals (professionals i.e. , PA, [employer], lab, RT, psych nurse, social worker health services, lactation nurse, teacher, special forces warrant officer, case sealer)? Give summary @ -No Was smoking cessation discussed for >3mins.? @ -No Was critical care preformed (if so, how long)? @ -No Were there social determinants of health that impacted care today? How? (Nayana elessness, low income, unemployed, alcoholism, drug addiction, transportation, low edu. Level, literacy, decrease access to med. care, longterm, rehab)? @ -No Was there de-escalation of care discussed even if they declined (Discuss DNR or withdrawal of care, Hospice)? DNR status @ -No What co-morbidities impacted this encounter? (DM, HTN, Smoking, COPD, CAD, Cancer, CVA, ARF, Chemo, Hep., AIDS, mental health diagnosis, sleep apnea, morbid obesity)? @ -None Was patient admitted / discharged? Hospital course, mention meds given and route, prescriptions, significant lab abnormalities, going to OR and other pertinent info. @ -Did charge patient's well-appearing no signs of distress patient was provided Rocephin, patient has evidence of right-sided pneumonia and in no respiratory distress she feels comfortable discharge with oral antibiotics, continuation of breathing treatments. Undiagnosed new problem with uncertain prognosis? @ -No Drug Therapy requiring intensive monitoring for toxicity (Heparin, Nitro, Insulin, Cardizem)? @ -No Were any procedures done? @ -No Diagnosis/symptom? @ -Pneumonia Acute, or Chronic, or Acute on Chronic? @ -[Acute Uncomplicated (without systemic symptoms) or Complicated (systemic symptoms)? @Unk complicated Side effects of treatment? @ -No Exacerbation, Progression, or Severe Exacerbation? @ -No Poses a threat to life or bodily function? How? (Chest pain, [place], [place], pneumonia, PE, COPD, DKA, ARF, appy, cholecystitis, CVA, Diverticulitis, Homicidal, Suicidal, threat to staff... and all critical care pts) @ -No - Lab Data Lab Results 12/31/23 Range/Units 09:18 Influenza Type A (PCR) Not Detected (Not Detectd) Influenza Type B (PCR) Not Detected (Not Detectd) RSV (PCR) Not Detected (Not Detectd) SARS-CoV-2 (PCR) Not Detected (Not Detectd) Disposition Clinical Impression: Pneumonia Disposition: HOME SELF-CARE Condition: Stable Instructions (If sedation given, give patient instructions): Pneumonia (ED) Additional Instructions: Please return to the Emergency Department if symptoms worsen or any other concerns. Prescriptions: Azithromycin [Zithromax Z Pack] 0 tab PO DIRECTED #6 tab Is patient prescribed a controlled substance at d/c from ED?: No Referrals: None,Stated [Primary Care Provider] - 1-2 days Time of Disposition: 10:47
[2023-12-31 10:54] VITALS: RESP 18
[2023-12-31] MEDS: cefTRIAXone 1,000 MG VIAL (IM USE) IM STA (11:22)
[2023-12-31 11:38] VITALS: BP 150/68; PULSE 68; TEMP 99
== END 2023-12-31 11:37 | disposition home or self-care (01) ==
LOC: EC 08:49
DX: J18.9 Pneumonia, unspecified organism (principal); Z87.891 Personal history of nicotine dependence; Z88.2 Allergy status to sulfonamides; Z88.8 Allergy status to other drugs, medicaments and biological substances; Z91.048 Other nonmedicinal substance allergy status
CPT/HCPCS: 99285; 96372; 87636; 71046; J0696; 96374

== ENCOUNTER 2024-03-28 03:29 | Emergency (ER) | payer MEDICARE, BC ==
[2024-03-28 03:35] VITALS: RESP 18; TEMP 98.6
[2024-03-28] MEDS: SODIUM CHLORIDE 0.9% 1,000 ML IV STA (04:29)
[2024-03-28 04:52] LABS: ALT 18 U/L (4-34); AST 24 U/L (14-36); African American GFR (CKD) 29 (>60 ml/min/1.73 sqM); Albumin 3.7 g/dL (3.5-5.0); Alkaline Phosphatase 85 U/L (38-126); Anion Gap 6 mmol/L; Blood Urea Nitrogen 27 mg/dL (7-17); Calcium 8.5 mg/dL (8.4-10.2); Carbon Dioxide 24 mmol/L (22-30); Chloride 109 mmol/L (98-107); Glucose 114 mg/dL (74-99); Magnesium 1.6 mg/dL (1.6-2.3); Non-African American GFR(CKD) 25 (>60 ml/min/1.73 sqM); Potassium 4.4 mmol/L (3.5-5.1); Sodium 139 mmol/L (137-145); Total Bilirubin 0.4 mg/dL (0.2-1.3); Total Protein 6.3 g/dL (6.3-8.2)
[2024-03-28 05:02] LABS: Basophils # (A) 0.1 k/uL (0-0.2); Basophils % (A) 0 %; Eosinophils # (A) 0.3 k/uL (0-0.7); Eosinophils % (A) 2 %; HCT 35.9 % (34.0-46.0); HGB 12.4 gm/dL (11.4-16.0); Lymphocytes % (A) 22 %; MCH 30.8 pg (25.0-35.0); MCHC 34.4 g/dL (31.0-37.0); MCV 89.5 fL (80.0-100.0); Mean Platelet Volume 7.8; Monocytes # (A) 0.8 k/uL (0-1.0); Monocytes % (A) 6 %; Neutrophils # (A) 9.6 k/uL (1.3-7.7); Neutrophils % (A) 69 %; Platelet Count 209 k/uL (150-450); RBC 4.01 m/uL (3.80-5.40); RDW 13.8 % (11.5-15.5); WBC 13.9 k/uL (3.8-10.6)
--- NOTE | 2024-03-28 05:38 | XR ---
EXAM: XR Chest, 2 Views CLINICAL HISTORY: ITS.REASON XR Reason: syncope TECHNIQUE: Frontal and lateral views of the chest. COMPARISON: CXR December 31, 2023. FINDINGS: Lungs: Retrocardiac opacity, correlate for mild pneumonia. This is best visualized on the lateral view. Pleural space: Unremarkable. No pneumothorax. Heart: Cardiomegaly. Mediastinum: Unremarkable. Normal mediastinal contour. Bones/joints: Unremarkable. No acute fracture. IMPRESSION: Retrocardiac opacity, correlate for mild pneumonia. This is best visualized on the lateral view.
[2024-03-28 06:27] LABS: Appearance,Urine Clear (Clear); Bacteria,Urine Rare /hpf; Bilirubin,Urine Negative (Negative); Blood,Urine Negative (Negative); Color,Urine Colorless; Glucose,Urine (UA) Negative (Negative); Hyaline Casts,Urine 4 /lpf (0-2); Ketones,Urine Negative (Negative); Leukocyte Esterase,Urine Small (Negative); Nitrite,Urine Negative (Negative); PH, Urine 5.5 (5.0-8.0); Protein,Urine Negative (Negative); Specific Gravity,Urine 1.012 (1.001-1.035); Squamous Epithelial Cell,Urine 1 /hpf (0-4); Urobilinogen,Urine <2.0 mg/dL (<2.0); WBC,Urine 10 /hpf (0-5)
--- NOTE | 2024-03-28 06:40 | ED ---
General Adult HPI - General Chief complaint: Dizziness Stated complaint: Dizziness Time Seen by Provider: 03/28/24 03:50 Source: patient, RN notes reviewed, old records reviewed Mode of arrival: EMS Limitations: no limitations - History of Present Illness Initial comments: Patient is a 78-year-old female who presents emergency department complaining of lightheadedness and dizziness. States this has happened before when she has been dehydrated. States she did not pass out but was having episodes where she became extremely lightheaded and almost passed out. She would sit down or lay down and symptoms which resolved. She is known to not drinking many fluids. Denies any chest pain or shortness of breath. Denies any fevers, chills, cough. Denies any urinary complaints. Denies any abdominal pain, nausea, vomiting. Currently has no symptoms while laying in the stretcher. Presents for further evaluation at this time.Patient did not fall or injure herself. No head trauma. Not on blood thinners. - Related Data Home Medications Medication Instructions Recorded Confirmed Clopidogrel [Plavix] 75 mg PO DAILY 11/18/21 10/21/23 Evolocumab [Repatha Sureclick] 140 mg SQ Q14D 11/18/21 10/21/23 Isosorbide Mononitrate ER [Imdur] 60 mg PO DAILY 11/18/21 10/21/23 Metoprolol Succinate (ER) [Toprol 50 mg PO DAILY 11/18/21 10/21/23 XL] Pantoprazole [Protonix] 40 mg PO DAILY 11/18/21 10/21/23 predniSONE 2.5 mg PO DAILY 11/18/21 10/21/23 sitaGLIPtin [Januvia] 100 mg PO DAILY 11/18/21 10/21/23 Albuterol Inhaler [Ventolin Hfa 2 puff INHALATION RT-QID PRN 09/08/23 10/21/23 Inhaler] Colestipol HCl [Colestid] 1 gm PO DAILY 09/08/23 10/21/23 Sertraline [Zoloft] 25 mg PO DAILY 09/08/23 10/21/23 hydrALAZINE HCL [Apresoline] 25 mg PO TID 09/08/23 10/21/23 Ciprofloxacin HCl [Cipro] 500 mg PO BID 10/21/23 10/21/23 Gabapentin [Neurontin] 100 mg PO DAILY 10/21/23 10/21/23 LORazepam [Ativan] 0.5 mg PO BID PRN 10/21/23 10/21/23 Losartan [Cozaar] 50 mg PO BID 10/21/23 10/21/23 Nystatin [Nystatin Oral Susp] 500,000 unit PO QID PRN 10/21/23 10/21/23 Spironolactone [Aldactone] 25 mg PO DAILY 10/21/23 10/21/23 guaiFENesin-Coden 100-10MG/5ML 10 ml PO Q6H PRN 10/21/23 10/21/23 [Robitussin AC] Previous Rx's Medication Instructions Recorded Acetaminophen Tab [Tylenol] 650 mg PO Q6HR PRN tab 09/13/23 Ascorbic Acid [Vitamin C] 1,000 mg PO DAILY #30 tab 09/13/23 Cholecalciferol [Vitamin D3 (25 50 mcg PO DAILY #30 tab 09/13/23 Mcg = 1000 Iu)] Furosemide [Lasix] 40 mg PO DAILY #30 tab 09/13/23 Potassium Chloride ER [K-Dur 20] 20 meq PO DAILY #30 tab 09/13/23 Zinc Sulfate [Orazinc] 220 mg PO DAILY 15 Days #15 cap 09/13/23 Budesonide-Formot 160-4.5 Mcg 2 puff INHALATION RT-BID #1 each 10/23/23 [Symbicort 160-4.5 Mcg Inhaler] Ipratropium-Albuterol Nebulize 3 ml INHALATION RT-QID PRN #120 10/23/23 [Duoneb 0.5 mg-3 mg/3 ml Soln] each predniSONE [Deltasone] 40 mg PO DAILY #6 tab 10/23/23 Azithromycin [Zithromax Z Pack] 0 tab PO DIRECTED #6 tab 12/31/23 Cephalexin [Keflex] 500 mg PO Q12HR 5 Days #10 cap 03/28/24 Allergies Allergy/AdvReac Type Severity Reaction Status Date / Time sulfamethoxazole Allergy Unknown Verified 03/28/24 03:35 [From Bactrim] trimethoprim [From Bactrim] Allergy Unknown Verified 03/28/24 03:35 atorvastatin [From Lipitor] AdvReac Rapid Verified 03/28/24 03:35 Heart Rate/Increased BP duloxetine [From Cymbalta] AdvReac Cough Verified 03/28/24 03:35 ondansetron [From Zofran] AdvReac agitation Verified 03/28/24 03:35 pravastatin AdvReac Rapid Verified 03/28/24 03:35 Heart Rate Hnhavvd-EWC-FnD Reductase AdvReac Rapid Verified 03/28/24 03:35 Inhibitor Heart Rate Review of Systems ROS Statement: Those systems with pertinent positive or pertinent negative responses have been documented in the HPI. Review of Systems: CONST: Denies fever EYES: Denies blurry vision ENT: Denies nasal congestion C/V: Denies Chest pain RESP: Denies shortness of breath GI: Denies abdominal pain : Denies dysuria SKIN: Denies rash. MSK: Denies joint pain. NEURO: Denies headache ROS Other: All systems not noted in ROS Statement are negative. Past Medical History Past Medical History: Heart Failure, Diabetes Mellitus, Hyperlipidemia, Hypertension History of Any Multi-Drug Resistant Organisms: None Reported Past Surgical History: Appendectomy, Breast Surgery, Cholecystectomy, Hysterectomy, Orthopedic Surgery Additional Past Surgical History / Comment(s): cardiac stents Past Anesthesia/Blood Transfusion Reactions: No Reported Reaction Past Psychological History: No Psychological Hx Reported Smoking Status: Former smoker Past Alcohol Use History: None Reported Past Drug Use History: None Reported General Exam - General Exam Comments Initial Comments: General: Appears in no acute distress. HEAD: Normal with no signs of head trauma. EYES: PERRLA, EOMI, conjunctiva normal, no discharge. ENT: Hearing grossly intact, normal oropharynx. RESPIRATORY: Clear breath sounds bilaterally. No wheezes, rales, or rhonchi. C/V: Regular rate and rhythm. S1 and S2 auscultated, no edema, peripheral pulses 2+ and intact throughout ABD: Abd is soft, nontender, nondistended EXT: Normal range of motion, no obvious deformity SKIN: No rashes or lesions observed on exposed skin. NEURO: Alert and oriented x 4. Cranial nerves II-XII intact. No focal sensory or strength deficits. NIH is 0. Limitations: no limitations Course Vital Signs 03/28/24 03/28/24 03/28/24 03:33 04:30 05:44 Temperature 98.6 F Pulse Rate 70 71 Pulse Rate [ 72 Medical Staff Credentialing Coordinator ] Respiratory 18 18 18 Rate Blood Pressure 144/68 122/64 Blood Pressure 150/66 [Right Arm Sitting] Blood Pressure 145/71 [Right Arm Standing] Blood Pressure 137/59 [Right Arm Supine] O2 Sat by Pulse 98 98 95 Oximetry 03/28/24 06:46 Temperature Pulse Rate 67 Pulse Rate [ Medical Staff Credentialing Coordinator ] Respiratory 18 Rate Blood Pressure 125/53 Blood Pressure [Right Arm Sitting] Blood Pressure [Right Arm Standing] Blood Pressure [Right Arm Supine] O2 Sat by Pulse 95 Oximetry Medical Decision Making - Medical Decision Making Was pt. sent in by a medical professional or institution (, PA, HEALTHCARE LIAISON, urgent care, hospital, or jail...) When possible be specific @ -No Did you speak to anyone other than the patient for history (EMS, parent, family, police, friend...)? What history was obtained from this source @ -No Did you review nursing and triage notes (agree or disagree)? Why? @ -I reviewed and agree with nursing and triage notes Were old charts reviewed (outside hosp., previous admission, EMS record, old EKG, old radiological studies, urgent care reports/EKG's, jail records)? Report findings @ -No old charts were reviewed Differential Diagnosis (chest pain, altered mental status, abdominal pain women, abdominal pain men, vaginal bleeding, weakness, fever, dyspnea, syncope, headache, dizziness, GI bleed, back pain, seizure, CVA, palpatations, mental health, musculoskeletal)? @ -Differential Dizziness: Benign paroxysmal positional Vertigo, Menieres disease, otitis media, acoustic neuroma, vertebrobasilar insufficiency, cerebellar stroke, encephalitis, hypovolemic, arrhythmia, coronary artery syndrome, anemia, this is not meant to be an all-inclusive list EKG interpreted by me (3pts min.). @ -As above X-rays interpreted by me (1pt min.). @ -X-ray reveals no obvious acute cardiopulmonary process. Neurology thinks t here may be a possible pneumonia however patient has no symptoms. CT interpreted by me (1pt min.). @ -None done U/S interpreted by me (1pt. min.). @ -None done What testing was considered but not performed or refused? (CT, X-rays, U/S, labs)? Why? @ -None What meds were considered but not given or refused? Why? @ -None Did you discuss the management of the patient with other professionals (pro fessionals i.e. , PA, HEALTHCARE LIAISON, lab, RT, psych nurse, social science manager, insurance salesman, teacher, credit risk review officer, case assembler)? Give summary @ -No Was smoking cessation discussed for >3mins.? @ -No Was critical care preformed (if so, how long)? @ -No Were there social determinants of health that impacted care today? How? (Homelessness, low income, unemployed, alcoholism, drug addiction, transportation, low edu. Level, literacy, decrease access to med. care, [facility], rehab)? @ -No Was there de-escalation of care discussed even if they declined (Discuss DNR or withdrawal of care, Hospice)? DNR status @ -No What co-morbidities impacted this encounter? (DM, HTN, Smoking, COPD, CAD, Cancer, CVA, ARF, Chemo, Hep., AIDS, mental health diagnosis, sleep apnea, morbid obesity)? @ -None Was patient admitted / discharged? Hospital course, mention meds given and route, prescriptions, significant lab abnormalities, going to OR and other pertinent info. @ -Patient presents with dizziness episodes that are lightheaded and appear to be orthostatic in nature. Vital signs currently within acceptable limits. She will be given IV fluids and we will obtain basic workup. She was in agreement this plan. EKG shows no signs of acute ischemia. Chest x-ray unremarkable. Labs remarkable for mild MILENA with a elevated BUN of 27 and creatinine of 1.86. Slightly above baseline. No other obvious findings on blood work. Urinalysis borderline for UTI. I updated the patient. She is feeling improved. Orthostatics negative at this time. She will be discharged home at this time on antibiotics. She was in agreement this plan. I will provide the patient with a prescription for Keflex. I instructed the patient to follow up with their PCP in the next 1-3 days.. I explained that the patient should return to the emergency department if they experience any worsening symptoms. Strict return precautions were discussed with the patient. The patient expressed understanding of these instructions. I answered all questions that the patient had. The patient was discharged home in good condition with their prescriptions and follow up information. Undiagnosed new problem with uncertain prognosis? @ -No Drug Therapy requiring intensive monitoring for toxicity (Heparin, Nitro, Insulin, Cardizem)? @ -No Were any procedures done? @ -No Diagnosis/symptom? @ -UTI, MILENA, dehydration Acute, or Chronic, or Acute on Chronic? @ -Acute Uncomplicated (without systemic symptoms) or Complicated (systemic symptoms)? @ -Complicated Side effects of treatment? @ -No Exacerbation, Progression, or Severe Exacerbation? @ -No Poses a threat to life or bodily function? How? (Chest pain, [place], [place], pneumonia, PE, COPD, DKA, ARF, appy, cholecystitis, CVA, Diverticulitis, Homicidal, Suicidal, threat to staff... and all critical care pts) @ -Unlikely - Lab Data Result diagrams: 03/28/24 04:29 03/28/24 04:29 Lab Results 03/28/24 03/28/24 03/28/24 Range/Units 04:29 04:29 04:29 WBC 13.9 H (3.8-10.6) k/uL RBC 4.01 (3.80-5.40) m/uL Hgb 12.4 (11.4-16.0) gm/dL Hct 35.9 (34.0-46.0) % MCV 89.5 (80.0-100.0) fL MCH 30.8 (25.0-35.0) pg MCHC 34.4 (31.0-37.0) g/dL RDW 13.8 (11.5-15.5) % Plt Count 209 (150-450) k/uL MPV 7.8 Neutrophils % 69 % Lymphocytes % 22 % Monocytes % 6 % Eosinophils % 2 % Basophils % 0 % Neutrophils # 9.6 H (1.3-7.7) k/uL Lymphocytes # 3.0 (1.0-4.8) k/uL Monocytes # 0.8 (0-1.0) k/uL Eosinophils # 0.3 (0-0.7) k/uL Basophils # 0.1 (0-0.2) k/uL Sodium 139 (137-145) mmol/L Potassium 4.4 (3.5-5.1) mmol/L Chloride 109 H (98-107) mmol/L Carbon Dioxide 24 (22-30) mmol/L Anion Gap 6 mmol/L BUN 27 H (7-17) mg/dL Creatinine 1.86 H (0.52-1.04) mg/dL Est GFR (CKD-EPI)AfAm 29 (>60 ml/min/1.73 sqM) Est GFR (CKD-EPI)NonAf 25 (>60 ml/min/1.73 sqM) Glucose 114 H (74-99) mg/dL Plasma Lactic Acid Abhijeet (0.7-2.0) mmol/L Calcium 8.5 (8.4-10.2) mg/dL Magnesium 1.6 (1.6-2.3) mg/dL Total Bilirubin 0.4 (0.2-1.3) mg/dL AST 24 (14-36) U/L ALT 18 (4-34) U/L Alkaline Phosphatase 85 (38-126) U/L Total Protein 6.3 (6.3-8.2) g/dL Albumin 3.7 (3.5-5.0) g/dL Urine Color Urine Appearance (Clear) Urine pH (5.0-8.0) Ur Specific [place] (1.001-1.035) Urine Protein (Negative) Urine Glucose (UA) (Negative) Urine Ketones (Negative) Urine Blood (Negative) Urine Nitrite (Negative) Urine Bilirubin (Negative) Urine Urobilinogen (<2.0) mg/dL Ur Leukocyte Esterase (Negative) Urine WBC (0-5) /hpf Urine WBC Clumps (None) /hpf Ur Squamous Epith Cells (0-4) /hpf Urine Bacteria (None) /hpf Hyaline Casts (0-2) /lpf Influenza Type A (PCR) Not Detected (Not Detectd) Influenza Type B (PCR) Not Detected (Not Detectd) RSV (PCR) Not Detected (Not Detectd) SARS-CoV-2 (PCR) Not Detected (Not Detectd) 03/28/24 03/28/24 Range/Units 04:29 05:58 WBC (3.8-10.6) k/uL RBC (3.80-5.40) m/uL Hgb (11.4-16.0) gm/dL Hct (34.0-46.0) % MCV (80.0-100.0) fL MCH (25.0-35.0) pg MCHC (31.0-37.0) g/dL RDW (11.5-15.5) % Plt Count (150-450) k/uL MPV Neutrophils % % Lymphocytes % % Monocytes % % Eosinophils % % Basophils % % Neutrophils # (1.3-7.7) k/uL Lymphocytes # (1.0-4.8) k/uL Monocytes # (0-1.0) k/uL Eosinophils # (0-0.7) k/uL Basophils # (0-0.2) k/uL Sodium (137-145) mmol/L Potassium (3.5-5.1) mmol/L Chloride (98-107) mmol/L Carbon Dioxide (22-30) mmol/L Anion Gap mmol/L BUN (7-17) mg/dL Creatinine (0.52-1.04) mg/dL Est GFR (CKD-EPI)AfAm (>60 ml/min/1.73 sqM) Est GFR (CKD-EPI)NonAf (>60 ml/min/1.73 sqM) Glucose (74-99) mg/dL Plasma Lactic Acid Abhijeet 1.1 (0.7-2.0) mmol/L Calcium (8.4-10.2) mg/dL Magnesium (1.6-2.3) mg/dL Total Bilirubin (0.2-1.3) mg/dL AST (14-36) U/L ALT (4-34) U/L Alkaline Phosphatase (38-126) U/L Total Protein (6.3-8.2) g/dL Albumin (3.5-5.0) g/dL Urine Color Colorless Urine Appearance Clear (Clear) Urine pH 5.5 (5.0-8.0) Ur Specific [place] 1.012 (1.001-1.035) Urine Protein Negative (Negative) Urine Glucose (UA) Negative (Negative) Urine Ketones Negative (Negative) Urine Blood Negative (Negative) Urine Nitrite Negative (Negative) Urine Bilirubin Negative (Negative) Urine Urobilinogen <2.0 (<2.0) mg/dL Ur Leukocyte Esterase Small H (Negative) Urine WBC 10 H (0-5) /hpf Urine WBC Clumps Rare H (None) /hpf Ur Squamous Epith Cells 1 (0-4) /hpf Urine Bacteria Rare H (None) /hpf Hyaline Casts 4 H (0-2) /lpf Influenza Type A (PCR) (Not Detectd) Influenza Type B (PCR) (Not Detectd) RSV (PCR) (Not Detectd) SARS-CoV-2 (PCR) (Not Detectd) - EKG Data -: EKG Interpreted by Me EKG Comments: 12-lead Electrocardiogram Interpretation Note EKG was reviewed and interpreted by myself. 12-lead ECG performed at 0336 is interpreted by me as revealing normal sinus rhythm at a rate of 71 beats per minute. [place] is normal. There were no ST or T wave abnormalities to suggest myocardial ischemia or injury. T wave inversion lead III. R wave progression across the precordium was satisfactory. By my interpretation this EKG is non- diagnostic for acute ischemia. Disposition Clinical Impression: Dehydration, MILENA (acute kidney injury), UTI (urinary tract infection) Disposition: HOME SELF-CARE Condition: Good Instructions (If sedation given, give patient instructions): Dehydration (ED), Urinary Tract Infection in Women (ED) Prescriptions: Cephalexin [Keflex] 500 mg PO Q12HR 5 Days #10 cap Is patient prescribed a controlled substance at d/c from ED?: No Referrals: Lindsay Crowley MD [Primary Care Provider] - 1-2 days Time of Disposition: 06:40
[2024-03-28 06:47] VITALS: BP 125/53; PULSE 67
[2024-03-28] MEDS: CEPHALEXIN 500 MG CAP PO STA (06:47)
== END 2024-03-28 06:59 | disposition home or self-care (01) ==
LOC: EC 03:29
DX: E86.0 Dehydration (principal); N17.9 Acute kidney failure, unspecified; N39.0 Urinary tract infection, site not specified; Z87.891 Personal history of nicotine dependence; Z88.1 Allergy status to other antibiotic agents; Z88.2 Allergy status to sulfonamides; Z88.8 Allergy status to other drugs, medicaments and biological substances
CPT/HCPCS: 36415; 71046; 80053; 81001; 83605; 83735; 85025; 87086; 87636; 93005; 96360; 96361; 99284